=== PATIENT | female | born 1955 | race Hispanic/Latino ===

== ENCOUNTER 2018-03-02 17:49 | Emergency (ER) | payer MEDICARE ==
[~2018-03-02] VITALS: Ht 160 cm; Wt 52.2 kg
[~2018-03-02 17:49] MED LIST: AMLODIPINE PO; ASPIR 8181 MG PO; ATORVASTATIN CA40 MG PO; CLARITIN10 M2; COREG12.5 MG PO; FLONASE16 GM INH; FUROSEMIDE40 MG PO; GABAPENTIN100 MG PO; GLIPIZIDE5 MG PO; LISINOPRIL20 MG PO; METOPROLOL TART25 MG PO; NORVASC5 MG PO; PLAVIX75 MG PO; RESTORIL15 MG PO; SYNTHROID50 MCG PO; TESSALON PERLE100 MG PO; VITAMIN B-121000 MC2 IM; XANAX0.5 MG PO; ZOCOR40 MG PO
--- OUTSIDE RECORDS SUMMARY | 2018-03-02 17:56 | XMS REPORT | Clinical Summary ---
Author Author [facility] Organization [facility] Address Unknown Phone Unavailable Care Team Providers Care Transplant Rn Name Role Phone Ernst Sosa MD PCP Allergies Active Allergy Reactions Severity Noted Date Comments No Known Drug Allergies 04/12/2016 Current Medications Prescription Sig. Disp. Refills Start End Date Status Date glipiZIDE (GLUCOTROL) 5 Take 5 mg by mouth 2 Active MG tablet (two) times a day before meals. aspirin (ECOTRIN) 81 MG Take 81 mg by mouth Active enteric coated tablet daily. latanoprost (XALATAN) Administer 1 drop to both Active 0.005 % ophthalmic eyes nightly. solution levothyroxine (SYNTHROID, Take 50 mcg by mouth Active LEVOTHROID) 50 MCG tablet daily. carvedilol (COREG) 25 MG Take 25 mg by mouth 2 Active tablet (two) times a day with meals. atorvastatin (LIPITOR) 40 Take 40 mg by mouth Active MG tablet daily. amLODIPine (NORVASC) 10 Take 10 mg by mouth Active mg tablet daily. clopidogrel (PLAVIX) 75 Take 75 mg by mouth Active mg tablet daily. furosemide (LASIX) 80 mg Take 80 mg by mouth 2 Active tablet (two) times a day. furosemide (LASIX) 40 MG Take 80 mg by mouth 3 09/30/20 Discontin tablet (three) times a week. 17 ued 80mg orally twice daily on Friday, , and Friday losartan (COZAAR) 50 MG Take 50 mg by mouth 08/28/20 Discontin tablet daily. 17 ued amLODIPine (NORVASC) 5 MG Take 5 mg by mouth daily. 09/30/20 Discontin tablet 17 ued acetaminophen-codeine Take 1-2 tablets by mouth 40 tablet 0 08/28/20 09/07/20 (TYLENOL WITH CODEINE #3) every 4 (four) hours as 17 17 300-30 mg per tablet needed for moderate pain for up to 10 days. 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 coli bacteremia 07/14/2016 11/08/2017 CAD s/p CABG X 4 VD 04/15/2016 11/08/2017 Anemia, chronic renal failure 11/08/2017 ESRD (end stage renal disease) 2013 MWF 11/08/2017 Last Assessment & Plan: N. Dysfunctional R arm AVF. Patient with access needs. We gave the patient our kidney failure information sheet and discussed with them in general transplant vs. PD vs. hemodialysis. We discussed catheters vs. grafts vs. fistulas and used the informational posters to better explain the differences. We explained our general preference for fistulas because of decreased infections and increased longevity. We discussed operative complications including bleeding, thrombosis, failure of the access, swelling, steal syndrome, and need for additional procedures. Bedside duplex by me shows fistula is short, small distally, and stenotic in the middle. The lab duplex shows volume flow of 1 L/min. Plan to ligate and place a R upper arm graft. We discussed operative complications including bleeding, thrombosis, failure of the access, swelling, steal syndrome, and need for additional procedures. DM2 11/08/2017 GERD 11/08/2017 HLD 11/08/2017 HTN 11/08/2017 Hypothyroidism 11/08/2017 Encounters Date Type Specialty Care Team Description 01/12/2018 Emergency Emergency Medicine Jacky Grimes MD Acute left flank pain - (Primary Dx); 01/13/2018 Hematuria, unspecified type; ESRD (end stage renal disease) 11/07/2017 [facility] Cardiology Peter De La Cruz MD ESRD (end stage renal - Encounter disease) on dialysis 11/08/2017 11/07/2017 Office Visit Cardiovascular Deshaun Shine, Steal syndrome as [employer] complication of dialysis access, initial encounter (Primary Dx) 11/07/2017 Orders Only Cardiovascular Fátima Westfield, ESRD ( end stage renal [employer] disease) on dialysis (Primary Dx) 11/07/2017 Orders Only Cardiovascular Deshaun Shine, [employer] 11/07/2017 Orders Only Cardiovascular Cynthia Colon Swelling ( Primary Dx) 11/06/2017 Telephone Cardiovascular Cynthia Colon Steal syndrome as complication of dialysis access, initial encounter (Primary Dx) 10/14/2017 Office Visit Cardiovascular Deshaun Shine, ESRD ( end stage renal [employer] disease) 2013 MWF (Primary Dx) 09/30/2017 Office Visit Cardiovascular Deshaun Shine, ESRD ( end stage renal [employer] disease) on dialysis (Primary Dx) 09/24/2017 Documentation Transplant Carolyn Vasquez Dialysis liaison waitlist update 09/03/2017 Telephone Cardiovascular Cynthia Colon 08/28/2017 Hospital Ophthalmology Haven Ruiz MD ESRD (end stage renal Encounter disease) 08/28/2017 Anesthesia Ophthalmology Sandro Wang Event MD 08/28/2017 Procedure Pass Ophthalmology 08/28/2017 Surgery Ophthalmology Haven Ruiz MD Ligation of right arm AV Fistula and Insertion of right arm AV Graft - artegraft 08/19/2017 Office Visit Cardiovascular Haven Ruiz MD ESRD ( end stage renal disease) (Primary Dx) 05/04/2017 [facility] [place] Generalized abdominal pain (Primary Dx); Non-intractable vomiting with nausea, unspecified vomiting type; ESRD (end stage renal disease) after 03/01/2017 Family History Relation Name Status Comments Mother Social History Tobacco Use Types Packs/Day Years Used Date Former Smoker Cigarettes 0.5 8 Quit: 2010 Smokeless Tobacco: Never Used Alcohol Use Drinks/Week oz/Week Comments No Sex Assigned at Date Recorded Not on file Last Filed Vital Signs Vital Sign Reading Time Taken Blood Pressure 184/75 01/13/2018 12:21 AM LONG LINES OPERATOR Pulse 82 01/13/2018 12:21 AM LONG LINES OPERATOR Temperature 36.3 C (97.4 F) 01/12/2018 6:05 PM LONG LINES OPERATOR Respiratory Rate 14 01/13/2018 12:21 AM LONG LINES OPERATOR Oxygen Saturation 100% 01/13/2018 12:21 AM LONG LINES OPERATOR Inhaled Oxygen - - Concentration Weight 54.3 kg (119 lb 9.6 oz) 11/08/2017 4:43 AM LONG LINES OPERATOR Height 157.5 cm (5' 2") 11/07/2017 12:27 PM LONG LINES OPERATOR Body Mass Index 21.88 11/08/2017 4:43 AM LONG LINES OPERATOR Plan of Treatment Health Maintenance Due Date Last Done Comments COLONOSCOPY 2007 MAMMOGRAM 12/27/2016 12/27/2014 INFLUENZA VACCINE 07/01/2017 ZOSTER VACCINE 2017 PAP SMEAR 12/27/2017 12/27/2014 Implants Implanted Type Area Health Insurance Assessor Device Expiration Model / Identifier Date Serial / Lot Clip Ligtng Weck Hemoclip Plus W/ Medical Right: WECK CLOSURE 2021 [id number] / Tape Ti Sm - [id number] Clips for Arm, Upper SYSTEMS / Implanted: Qty: 2 on 08/28/2017 by Internal [id number] Haven Ruiz MD Use Clip Ligtng Weck Hemoclip Plus W/ Medical Right: TELEFLEX 04/17/2022 [id number] / Tape Ti Med - [id number] Clips for Arm, Upper MEDICAL / Implanted: Qty: 2 on 08/28/2017 by Internal [id number] Haven Ruiz MD Use Graft Vasclr Hmodial Bovine Crtd Vascular Right: ARTEGRAFT 2018 [id number] / Artery 45cm 7mm - [id number] Graft Arm, Upper / Implanted: 08/28/2017 (Quantity not [id number] on file) Procedures Procedure Name Priority Date/Time Associated Diagnosis Comments HEMODIALYSIS Routine 11/07/2017 8:39 PM LONG LINES OPERATOR AL REMOVAL TUNNELED CV Routine 10/15/2017 ESRD (end stage renal Results for this CATH W/O SUBQ PORT OR 10:04 AM LONG LINES OPERATOR disease) 2014 MWF procedure are in the PUMP results section. ANESTHESIA PERIPHERAL Routine 08/28/2017 BLOCK 12:57 PM CDT Procedure Note - Oc Mendez MD - 08/28/2017 12:46 PM CDT Peripheral Block Performed by: OC MENDEZ Authorized by: OC MENDEZ Patient Location: Pre-op Start Time: 08/28/2017 12:46 PM End Time: 08/28/2017 12:54 PM Staff: Anesthesio logist: OC MENDEZ Resident/C RNA: SANDRO WANG Preprocedu re: patient identified , IV checked, site and side verified, risks and benefits discussed, procedure verified, surgical consent complete, patient position confirmed, monitors and equipment checked, pre-op evaluation complete and site marked Time Out Performed: 08/28/2017 12:45 PM Peripheral Nerve Block: Patient Position: Sitting Prep: ChloraPrep and patient draped Monitoring : Blood pressure monitoring , continuous pulse oximetry and heart rate Block Type: Supraclavi cular Laterality : Right Injection Technique: Single injection Procedures : ultrasound guided and nerve stimulator Ultrasound documentat ion: Images saved on portable media, still images obtained and printed/pl aced in chart Local Infiltrati on (See MAR for details): Ropivacain e Loss of Twitch: 0.5 mA Needle: Needle Type: Pajunk Needle Gauge: 26 G Needle Length: 8 cm Assessment : Injection Assessment : Visualized needle/loc al anesthetic surroundin g nerve, intermitte nt aspiration during local anesthetic administra tion, visualized pertinent vascular structures and nerves, no symptoms of intraneura l/intraven ous injection and needle tip visualized at all times during injection of medication Paresthesi a Pain: None Heart Rate Change: No Slow Fractionat ed Injection: Yes Block outcome: No apparent complicati ons, patient comfortabl e and patient tolerated procedure well Ligation of right arm AV 08/28/2017 ESRD (end stage renal Fistula and Insertion of 10:15 AM CDT disease) right arm AV Graft - artegraft after 03/01/2017 Results * Urinalysis screen and microscopy, with reflex to culture (01/12/2018 10:36 PM) Component Value Ref Range Specimen site Clean catch Color, UA Red Appearance, UA Turbid Specific gravity, UA 1.018 1.001 - 1.035 pH, UA 5.0 5.0 - 8.5 Protein, UA 2+ (A) Negative Glucose, UA 3+ (A) Negative Ketones, UA Negative Negative Bilirubin, UA Negative Negative Blood, UA Large (A) Negative Nitrite, UA Negative Negative Urobilinogen, UA <2.0 <2.0 Leukocyte esterase, UA Negative Negative Epithelial cells, UA 1 /HPF WBC, UA 7 (H) 0 - 4 /HPF RBC, UA >180 (H) 0 - 2 /HPF Bacteria, UA Few None seen Yeast, UA None seen Yeast with pseudohyphae, None seen UA Specimen Performing Laboratory Urine [facility] DEPARTMENT OF PATHOLOGY AND [facility] MEDICINE [address] [place] [id number] * Gram stain (01/12/2018 10:34 PM) Component Value Ref Range Gram stain result No WBC's or organisms seen. Comment: Specimen Information Specimen Source: Urine Specimen Site: Clean catch Specimen Performing Laboratory Urine [facility] [place] [address] * Urine culture (01/12/2018 10:34 PM) Component Value Ref Range Urine culture isolate Mixed jeremías- more than 3 organisms isolated. Consider resubmitting specimen if clinically indicated. Comment: Specimen Information Specimen Source: Urine Specimen Site: Clean catch Specimen Performing Laboratory Urine [facility] [place] [address] * Estimated GFR (01/12/2018 9:32 PM) Only the most recent of 3 results within the time period is included. Component Value Ref Range GFR Non Af Amer 8 (A) mL/min/1.73 m2 GFR Af Amer 10 (A) mL/min/1.73 m2 Comment: Chronic kidney disease: <60 mL/min/1.73m2 Kidney failure: <15 mL/min/1.73m2 The estimated GFR is calculated from the IDMS-traceable Modification of Diet in Renal Disease Equation. The accuracy of the calculation is poor when the creatinine is normal. Calculated values >90 mL/min/1.73m2 are not reported. This equation has not been validated in children (<18 years), women, the elderly (>70 years), or ethnic groups other than Caucasians and Americans. Specimen Performing Laboratory Plasma specimen [facility] DEPARTMENT OF PATHOLOGY AND GENOMIC MEDICINE [address] [place] [address] * CBC with platelet and differential (01/12/2018 9:32 PM) Only the most recent of 3 results within the time period is included. Component Value Ref Range WBC 10.16 4.50 - 11.00 k/uL RBC 3.46 (L) 4.20 - 5.50 m/uL HGB 10.8 (L) 12.0 - 16.0 g/dL HCT 33.0 (L) 37.0 - 47.0 % MCV 95.4 82.0 - 100.0 fL MCH 31.2 27.0 - 34.0 pg MCHC 32.7 31.0 - 37.0 g/dL RDW - SD 51.8 37.0 - 55.0 fL MPV 11.6 8.8 - 13.2 fL Platelet count 176 150 - 400 k/uL Nucleated RBC 0.00 /100 WBC Neutrophils 57.0 39.0 - 69.0 % Lymphocytes 24.5 (L) 25.0 - 45.0 % Monocytes 6.1 0.0 - 10.0 % Eosinophils 10.8 (H) 0.0 - 5.0 % Basophils 0.9 0.0 - 1.0 % Immature granulocytes 0.7Comment: "Immature granulocytes" 0.0 - 1.0 % (promyelocytes, myelocytes, metamyelocytes) Specimen Performing Laboratory Blood [facility] DEPARTMENT OF PATHOLOGY AND [facility] [address] [place] [id number] * Lipase level (01/12/2018 9:32 PM) Component Value Ref Range Lipase 78 (H) 13 - 60 U/L Specimen Performing Laboratory Plasma specimen [facility] DEPARTMENT OF PATHOLOGY AND [address] [address] * Comprehensive metabolic panel (01/12/2018 9:32 PM) Component Value Ref Range Sodium 140 135 - 148 mEq/L Potassium 4.0 3.5 - 5.0 mEq/L Chloride 95 (L) 98 - 112 mEq/L CO2 28 24 - 31 mEq/L Anion gap 17 (H) 7 - 15 mEq/L Comment: Starting from March , anion gap calculation no longer incorporates potassium. Please note the change. BUN 34 (H) 8 - 23 mg/dL Creatinine 5.2 (H) 0.5 - 0.9 mg/dL Glucose 339 (H) 65 - 99 mg/dL Calcium 8.7 (L) 8.8 - 10.2 mg/dL Protein 8.2 6.3 - 8.3 g/dL Comment: 4.6-7.0 g/dL 1 week 4.4-7.6 g/dL 7 months-1year 5.1-7.3 g/dL 1-2 years 5.6-7.5 g/dL >3 years 6.0-8.0 g/dL 18-150 6.3-8.3 g/dL Albumin 3.7 3.5 - 5.0 g/dL A/G ratio 0.8 0.7 - 3.8 Alkaline phosphatase 272 (H) 35 - 104 U/L AST 23 10 - 35 U/L ALT 13 5 - 50 U/L Total bilirubin 0.3 0.0 - 1.2 mg/dL Specimen Performing Laboratory Plasma specimen [facility] DEPARTMENT OF PATHOLOGY AND GENOMIC MEDICINE [address] [place] [address] * CT Renal Stone Protocol (01/12/2018 8:51 PM) Specimen Performing [facility] [address] [place] [address] Narrative EXAMINATION:CT RENAL STONE PROTOCOL CLINICAL HISTORY:Flank Pain, L flank TECHNIQUE: Multiple axial images of the abdomen and pelvis were obtained without intravenous administration of iodinated contrast. Sagittal and coronal computerized reformatted images were also obtained. The lack of intravenous contrast reduces the sensitivity of detecting solid organ disease.. All CT images were acquired using low-dose technique with automated exposure control. COMPARISON: July 15, 2016 FINDINGS: Abdomen: 1.Mild left-sided hydronephrosis however without evidence for an obstructing ureteral stone. There are no stones identified within the bladder. The possibility of a distal ureteral stricture cannot be excluded. 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 The spleen, pancreas, and adrenal glands appear normal. 3.There is mild perinephric stranding involving the kidneys bilaterally which may relate to chronic medical renal disease. There is extensive scarring involving the right kidney. 4.Cholelithiasis without biliary obstruction. 5.Extensive atherosclerotic disease is seen involving the abdominal aorta. No retroperitoneal lymphadenopathy. Pelvis: 1.The appendix appears normal. 2.There are scattered diverticuli throughout the colon without acute inflammatory change. 3.A pelvic mass or fluid collection is not identified. The bladder is empty. 4.Right adnexal cyst measuring 3.2 x 2.7 cm. Relative to prior there has been no significant change IMPRESSION: 1.Diverticulosis. 2.Stable right adnexal cyst measuring 3.2 cm. 3.Left-sided hydronephrosis is new when compared to prior. While the findings may relate to a recently passed stone, follow-up is recommended to exclude the possibility of a ureteral stricture. 4.Cholelithiasis. [facility]-[id number] Procedure Note Interface, Radiology Results Incoming - 01/12/2018 9:02 PM LONG LINES OPERATOR EXAMINATION: CT RENAL STONE PROTOCOL CLINICAL HISTORY: Flank Pain, L flank TECHNIQUE: Multiple axial images of the abdomen and pelvis were obtained without intravenous administration of iodinated contrast. Sagittal and coronal computerized reformatted images were also obtained. The lack of intravenous contrast reduces the sensitivity of detecting solid organ disease.. All CT images were acquired using low-dose technique with automated exposure control. COMPARISON: July 15, 2016 FINDINGS: Abdomen: 1. Mild left-sided hydronephrosis however without evidence for an obstructing ureteral stone. There are no stones identified within the bladder. The possibility of a distal ureteral stricture cannot be excluded. 2. 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 The spleen, pancreas, and adrenal glands appear normal. 3. There is mild perinephric stranding involving the kidneys bilaterally which may relate to chronic medical renal disease. There is extensive scarring involving the right kidney. 4. Cholelithiasis without biliary obstruction. 5. Extensive atherosclerotic disease is seen involving the abdominal aorta. No retroperitoneal lymphadenopathy. Pelvis: 1. The appendix appears normal. 2. There are scattered diverticuli throughout the colon without acute inflammatory change. 3. A pelvic mass or fluid collection is not identified. The bladder is empty. 4. Right adnexal cyst measuring 3.2 x 2.7 cm. Relative to prior there has been no significant change IMPRESSION: 1. Diverticulosis. 2. Stable right adnexal cyst measuring 3.2 cm. 3. Left-sided hydronephrosis is new when compared to prior. While the findings may relate to a recently passed stone, follow-up is recommended to exclude the possibility of a ureteral stricture. 4. Cholelithiasis. [facility]-[id number] * POC glucose (11/08/2017 8:21 AM) Only the most recent of 3 results within the time period is included. Component Value Ref Range POC glucose 77 65 - 99 mg/dL Comment: [facility] Notified RN Meter ID: [id number] Patternmaker Helper: Pancho Corcoran Specimen Performing Laboratory [facility] DEPARTMENT OF PATHOLOGY AND GENOMIC MEDICINE [address] [place] [address] * Partial thromboplastin time, activated (11/08/2017 6:00 AM) Component Value Ref Range PTT SEE COMMENT 23.0 - 36.0 sec Comment: PTT therapeutic range for unfractionated heparin is 61.0-112.0 seconds which corresponds to Anti-Xa 0.3-0.7 U/ml. Footnote--------- Unable to perform testing, specimen is CLOTTED. Recollect requested for PT AND PTT (tests). MICKEY WAGNER (name/location) notified by A (tech ID) at [facility] (date/time). Credit issued. Corrected result; previously reported as 21.7 on 11/08/2017 at 08:06 by [facility] Specimen Performing Laboratory Blood [facility] DEPARTMENT OF PATHOLOGY AND [facility]ICINE [address] [place] [id number] * Prothrombin time with INR (11/08/2017 6:00 AM) Component Value Ref Range Prothrombin time SEE COMMENT 12.0 - 15.0 sec Comment: Footnote--------- PLEASE DISREGARD PREVIOUS RESULT. Unable to perform testing, specimen is CLOTTED. Recollect requested for PT AND PTT (tests). MICKEY WAGNER (name/location) notified by [facility] (tech ID) at 11/08/2017 08:09 (date/time). Credi t issued. Corrected result; previously reported as 14.1 on 11/08/2017 at 08:06 by [facility] INR SEE COMMENT Comment: The International Normalized Ratio (INR) is a therapeutic monitoring tool for patients who are stable on oral anticoagulant therapy. An INR of 2.0-3.0 is suggested for deep vein thrombosis/pulmonary embolism. Footnote--------- Corrected result; previously reported as 1.1 on 11/08/2017 at 08:06 by [facility] Specimen Performing Laboratory Blood [facility] DEPARTMENT OF PATHOLOGY AND GENOMIC MEDICINE [address] [place] [id number] * Magnesium level (11/08/2017 4:00 AM) Component Value Ref Range Magnesium 2.2 1.6 - 2.6 mg/dL Specimen Performing Laboratory Plasma specimen [facility] DEPARTMENT OF PATHOLOGY AND [facility] [address] [place] [id number] * Basic metabolic panel (11/08/2017 4:00 AM) Only the most recent of 2 results within the time period is included. Component Value Ref Range Sodium 140 135 - 148 mEq/L Potassium 4.5 3.5 - 5.0 mEq/L Chloride 95 (L) 98 - 112 mEq/L CO2 24 24 - 31 mEq/L Anion gap 21 (H) 7 - 15 mEq/L Comment: Starting from March , anion gap calculation no longer incorporates potassium. Please note the change. BUN 26 (H) 6 - 20 mg/dL Creatinine 4.5 (H) 0.5 - 0.9 mg/dL Glucose 85 65 - 99 mg/dL Calcium 8.4 8.3 - 10.2 mg/dL Specimen Performing Laboratory Plasma specimen [facility] DE[place]MENT [place] [address] * Hepatitis B surface antigen (11/08/2017 12:05 AM) Component Value Ref Range Hepatitis B surface Ag Non-reactive Non-reactive Specimen Performing Laboratory Blood [facility] DEPARTMENT OF PATHOLOGY AND [facility] [address] [place] [address] * ECG 12 lead (11/07/2017 8:52 PM) Only the most recent of 2 results within the time period is included. Component Value Ref Range Ventricular rate 74 Atrial rate 74 AL interval 168 QRSD interval 88 QT interval 448 QTC interval 497 P axis 1 65 QRS axis 1 51 T wave axis 47 EKG impression Normal sinus rhythm-Prolonged QT-Abnormal ECG-In automated comparison with ECG of 28-AUG-2017 10:10,-T wave inversion no longer evident in Inferior leads-Nonspecific T wave abnormality has replaced inverted T waves in Anterior leads- Specimen Performing Laboratory [facility] [address] [place] [address] * PV duplex hemodialysis avg avf access (11/07/2017 3:35 PM) Only the most recent of 2 results within the time period is included. [facility]imen [facility] [address] [place] [address] Narrative PERIPHERAL VASCULAR LABORATORY AV Graft - Fistula Report [address] [place] Pat.Name:ITALIA TAVARES Pat.ID:[id number] St.Date: 11/07/2017 Refer.MD:HAVEN RUIZ MD Exam Time: 1:54:00 PMStudy Type:AV Graft - Fistula DOBAge:1955,61YSex: FEMALE Sonogrphr: Zunilda Cunningham RVSPat. Stat.:Outpatient CPT - 4: 54723 Echo Event ID:[id number] Order ID:[id number] Reason for Study:Right ring finger discoloration for one day prior to and during dialysis. Patient denies hand and digit pain at the moment. Patient was seen at an outside hospital, right TDC was placed. ESRD Procedures:08/28/2017 Right brachiobasilic AVF ligation. Right brachial artery to brachial vein AV Graft placment. 08/2015 Right brachiobasilic AVF creation. Race:C SUMMARY: DUPLEX SCAN OBSERVATIONS: Right:The brachial artery to brachial vein upper arm AVG is well visualized.Disturbed colorflow and Doppler signals are noted in the feeding brachial artery, through the graft and into the draining vein. Increased colorflow disturbance is noted in the AVG anastomosis. The right central veins appear patent. VOLUME FLOW: Right brachial artery 1150 ml/min Technically difficult exam due to patient pain level. Patient seen in clinic by Deshaun PHYSICIAN INTERPRETATION 1.Volume flow, right brachial artery is 1150ml/min 2.<50% juxta-anastomotic stenosis of the right arterial anastomosis (ratio 2.01). 3.<50% juxta-anastomotic stenosis of the right venous anastomosis (ratio 0.61). 4. The right central veins appear patent. 5.See same day upper extremity venous duplex. MEASUREMENTS: GRAFT Right Brachial A Mid Brachial Artery to Brachial Vein:Graft Brachial A [id number] cm/s Right AVG Arterial Anast. Brachial Artery to Brachial Vein:Graft AVG AAnast PSV 659 cm/s Right AVG Arterial Side Brachial Artery to Brachial Vein:Graft AVG ASide [id number] cm/s Right AVG Arterial Side 1 Brachial Artery to Brachial Vein:Graft AVG ASide 1 PSV 224 cm/s Right AVG Arterial Side 2 Brachial Artery to Brachial Vein:Graft AVG ASide 2 PSV 194 cm/s Right AVG Mid Brachial Artery to Brachial Vein:Graft AVG Mid [id number] cm/s Right AVG Vein Side Brachial Artery to Brachial Vein:Graft AVG Vn Side PSV 193 cm/s Right AVG Vein Side 1 Brachial Artery to Brachial Vein:Graft AVG Vn Side 1 P 206 cm/s Right AVG Vein Anastomosis Brachial Artery to Brachial Vein:Graft AVG Vn Anast PS 130 cm/s Right Brachial V Prx Brachial Artery to Brachial Vein:Graft Brachial V [id number] cm/s Right Axillary V Mid Brachial Artery to Brachial Vein:Graft Axillary V Mid 64 cm/s Right Subclavian V Mid Brachial Artery to Brachial Vein:Graft Subclavian V Mi76 cm/s Right Subclavian V Central Brachial Artery to Brachial Vein:Graft Subclavian V Ce58 cm/s Signed 11/10/2017 08:57 AM Abida Desouza MD, RPVI Procedure Note Interface, Radiology Results In - 11/10/2017 8:58 AM [facility] PERIPHERAL VASCULAR LABORATORY AV Graft - Fistula Report [address] [place] [address] Pat.Name: ITALIA TAVARES Pat.ID: [id number] .Date: 11/07/2017 Refer.MD: HAVEN RUIZ MD Exam Time: 1:54:00 PM Study Type:AV Graft - Fistula Age: 1 1955,61Y Sex: FEMALE Sonogrphr: BILL Briceno Pat. Stat.:Outpatient CPT - 4: 29563 Echo Event ID:[id number] Order ID: [id number] Reason for Study:Right ring finger discoloration for one day prior to and during dialysis. Patient denies hand and digit pain at the moment. Patient was seen at an outside hospital, right TDC was placed. ESRD Procedures:08/28/2017 Right brachiobasilic AVF ligation. Right brachial artery to brachial vein AV Graft placment. 08/2015 Right brachiobasilic AVF creation. Race: C SUMMARY: DUPLEX SCAN OBSERVATIONS: Right: The brachial artery to brachial vein upper arm AVG is well visualized. Disturbed colorflow and Doppler signals are noted in the feeding brachial artery, through the graft and into the draining vein. Increased colorflow disturbance is noted in the AVG anastomosis. The right central veins appear patent. VOLUME FLOW: Right brachial artery 1150 ml/min Technically difficult exam due to patient pain level. Patient seen in clinic by Deshaun PHYSICIAN INTERPRETATION 1. Volume flow, right brachial artery is 1150ml/min 2. <50% juxta-anastomotic stenosis of the right arterial anastomosis (ratio 2.01). 3. <50% juxta-anastomotic stenosis of the right venous anastomosis (ratio 0.61). 4. The right central veins appear patent. 5. See same day upper extremity venous duplex. MEASUREMENTS: GRAFT Right Brachial A Mid Brachial Artery to Brachial Vein:Graft Brachial A Mid 327 cm/s Right AVG Arterial Anast. Brachial Artery to Brachial Vein:Graft AVG AAnast PSV 659 cm/s Right AVG Arterial Side Brachial Artery to Brachial Vein:Graft AVG ASide PSV 369 cm/s Right AVG Arterial Side 1 Brachial Artery to Brachial Vein:Graft AVG ASide 1 PSV 224 cm/s Right AVG Arterial Side 2 Brachial Artery to Brachial Vein:Graft AVG ASide 2 PSV 194 cm/s Right AVG Mid Brachial Artery to Brachial Vein:Graft AVG Mid PSV 268 cm/s Right AVG Vein Side Brachial Artery to Brachial Vein:Graft AVG Vn Side PSV 193 cm/s Right AVG Vein Side 1 Brachial Artery to Brachial Vein:Graft AVG Vn Side 1 P 206 cm/s Right AVG Vein Anastomosis Brachial Artery to Brachial Vein:Graft AVG Vn Anast PS 130 cm/s Right Brachial V Prx Brachial Artery to Brachial Vein:Graft Brachial V Prx 212 cm/s Right Axillary V Mid Brachial Artery to Brachial Vein:Graft Axillary V Mid 64 cm/s Right Subclavian V Mid Brachial Artery to Brachial Vein:Graft Subclavian V Mi 76 cm/s Right Subclavian V Central Brachial Artery to Brachial Vein:Graft Subclavian V Ce 58 cm/s Signed 11/10/2017 08:57 AM Abida Desouza MD, RPVI * PV duplex venous upper extremity (11/07/2017 3:15 PM) Specimen Performing Laboratory [facility] [address] [place] [address] [facility] PERIPHERAL VASCULAR LABORATORY Upper Extremity Venous Duplex Report [address] [place] Pat.Name:ITALIA TAVARES Pat.ID:[id number] St.Date: 11/07/2017 Refer.MD:HAVEN RUIZ MD Exam Time: 1:19:00 PMStudy Type:UE Venous DOBAge:1955,61YSex: FEMALE Sonogrphr: Gerard Briceno. Stat.:Outpatient CPT - 4: 84037 Echo Event ID:[id number] Order ID:[id number] Reason for Study:Right upper extremity edema s/p TDC placement. Procedures:08/28/2017 Right brachiobasilic AVF ligation. Right brachial artery to brachial vein AV Graft placment. Race:C SUMMARY: DUPLEX SCAN OBSERVATIONS Right Left IJContinuous SubclavianPatent Patent AxillaryPatent BrachialPatent BasilicNot Visualized CephalicPatent Cephalic forearm Partial RIGHT: The forearm cephalic vein is partially compressible with echogenic material within the venous lumen. Reduced colorflow and Doppler signals.There is normal compressibility and no evidence of echogenic material noted within the lumen of the remaining visualized veins. Colorflow and Doppler signals demonstrate patency. Reduced phasicity Doppler signals noted in the internal jugular vein. Multiple venous varicosities are noted near the internal jugular vein. Limited visualization of the subclavian vein due to the tunneled dialysis catheter. The basilic vein is not visualized. Technically difficult exam due to patient pain level. Patient seen in clinic by Deshaun PHYSICIAN INTERPRETATION 1.Chronic venous thrombosis of the right forearm cephalic vein. 2.The right central veins appear patent. 3.Right tunneled dialysis catheter. Signed 11/10/2017 08:57 AM Abida Desouza MD, RPVI Procedure Note Interface, Radiology Results In - 11/10/2017 8:57 AM [facility] PERIPHERAL VASCULAR LABORATORY Upper Extremity Venous Duplex Report [address] [place] [address] Pat.Name: ITALIA TAVARES Pat.ID: [id number] St.Date: 11/07/2017 Refer.MD: HAVEN URIZ MD Exam Time: 1:19:00 PM Study Type:UE Venous Age: 1 1955,61Y Sex: FEMALE Sonogrphr: BILL Briceno Pat. Stat.:Outpatient CPT - 4: 95468 Echo Event ID:[id number] Order ID: [id number] Reason for Study:Right upper extremity edema s/p TDC placement. Procedures:08/28/2017 Right brachiobasilic AVF ligation. Right brachial artery to brachial vein AV Graft placment. Race: C SUMMARY: DUPLEX SCAN OBSERVATIONS Right Left IJ Continuous Subclavian Patent Patent Axillary Patent Brachial Patent Basilic Not Visualized Cephalic Patent Cephalic forearm Partial RIGHT: The forearm cephalic vein is partially compressible with echogenic material within the venous lumen. Reduced colorflow and Doppler signals. There is normal compressibility and no evidence of echogenic material noted within the lumen of the remaining visualized veins. Colorflow and Doppler signals demonstrate patency. Reduced phasicity Doppler signals noted in the internal jugular vein. Multiple venous varicosities are noted near the internal jugular vein. Limited visualization of the subclavian vein due to the tunneled dialysis catheter. The basilic vein is not visualized. Technically difficult exam due to patient pain level. Patient seen in clinic by Deshaun PHYSICIAN INTERPRETATION 1. Chronic venous thrombosis of the right forearm cephalic vein. 2. The right central veins appear patent. 3. Right tunneled dialysis catheter. Signed 11/10/2017 08:57 AM Abida Desouza MD, RPVI * TDC Removal (10/15/2017 10:04 AM) Narrative Deshaun Shine NP 10/15/2017 10:04 AM TDC Removal Date/Time: 10/15/2017 10:02 AM Performed by: DESHAUN SHINE Authorized by: DESHAUN SHINE TDC site anesthetized with local anesthetic. The cuff was dissected free and the catheter removed in its entirety. Pressure was held at the site to ensure hemostasis. Pressure dressing applied. Verbal and written instructions and ER warnings given. Procedure Comments: With the patient in supine position, the (left) side of the neck and the existing catheter were prepped and draped in a sterile fashion. 1% Lidocaine with Epiwas injected subcutaneously around the catheter tract. Blunt dissection of the tract was performed and the catheter was removed without complications. With the patient now sitting upright, pressure was held over the entry site in the (left) internal jugular vein and hemostasis was achieved. Dressings were placed over the skin wound on the subclavicular region. The patient tolerated the procedure well. Impression: Successful removal of (left) internal jugular vein tunneled catheter. Consent: Consent obtained:Verbal Consent given by:Patient and healthcare agent Risks discussed:Bleeding, infection, pain and poor cosmetic result Alternatives discussed:Observation, referral, no treatment and delayed treatment Post-procedure details: Patient tolerance of procedure:Tolerated well, no immediate complications * POC panel 4 (08/28/2017 11:30 AM) Component Value Ref Range POC sodium 146Comment: Testing performed on the ISTAT 135 - 148 mEq/L instrument by DAXA Iyer [id number] POC potassium 4.2 3.5 - 5.0 mEq/L POC hematocrit 32 (L) 37 - 47 % POC glucose 130 (H) 65 - 99 mg/dL Specimen Performing Laboratory [facility] DEPARTMENT OF PATHOLOGY AND GENOMIC MEDICINE [address] [place] [address] * XR Chest 1 Vw Portable (08/28/2017 11:05 AM) Specimen Performing Laboratory [facility] [address] [place] [address] Narrative EXAMINATION:XR CHEST 1 VW PORTABLE CLINICAL HISTORY:PRE-OP COMPARISON:July 14, 2016 IMPRESSION: 1.Prior sternotomy. Left-sided catheter extends into the right atrium. 2.There is no pneumothorax. 3.There has been resolution of volume loss and fluid on the left side since the prior study. [id number] Procedure Note Hm Interface, Radiology Results Incoming - 08/28/2017 11:19 AM CDT EXAMINATION: XR CHEST 1 VW PORTABLE CLINICAL HISTORY: PRE-OP COMPARISON: July 14, 2016 IMPRESSION: 1. Prior sternotomy. Left-sided catheter extends into the right atrium. 2. There is no pneumothorax. 3. There has been resolution of volume loss and fluid on the left side since the prior study. [id number] after 03/01/2017 Insurance Payer Benefit Subscriber ID Type Phone Address Plan / Group MEDICARE MEDICARE xxxxxxxxxx [place] PART A [place] B AARP AARP xxxxxxxxx-xx Commercial SUPPLEMENT
--- OUTSIDE RECORDS SUMMARY | 2018-03-02 17:56 | XMS REPORT ---
Author Author [facility] Address Unknown Phone Unavailable Care Team Providers Care Clinical Ob Name Role Phone INNA MEYERS Unavailable Unavailable JANETTE CHRISTINE Unavailable Unavailable Problems This patient has no known problems. Allergies, Adverse Reactions, Alerts This patient has no known allergies or adverse reactions. Medications This patient has no known medications. Results Test Description Test Time Test Comments Text Results Atomic Results Result Comments HEPTOBILIARY W PHARM [place] [address] Patient Name: YESIKA TAVARES MR #: [id number] : 1955 Age/Sex: 61/F Req #: [id number] Adm Physician: INNA MEYERS MD Ordered by: LILI CROOKS MD Report #: [id number] Location: MED/SURG2 Room/Bed: [facility] _ Procedure: [id number] NM/HEPTOBILIARY W PHARM Exam Date: 09/07/17 Exam Time: 1055 REPORT STATUS: Signed Hepatobiliary Scan with Gallbladder Ejection Fraction Clinical information: 61 F with chronic abdominal pain x2 days Technique: Following intravenous administration of 6 millicuries of Tc-99m mebrofenin, dynamic images of the abdomen in the anterior projection were obtained through 50 minutes. Sincalide (CCK analog) 1.1 micrograms was administered intravenously over 30 minutes with additional imaging for determination of gallbladder ejection fraction. Discussion: Perfusion of the liver is normal. Extraction of tracer by the liver parenchyma is normal. Tracer appears promptly within the biliary tract. The gallbladder begins to fill by 12 minutes post injection of tracer and fills adequately. Tracer is seen in the small bowel during the sincalide infusion. The gallbladder ejection fraction with sincalide is 36% ( normal greater than 40%). Impression: 1. Filling of the gallbladder excludes acute cystic duct obstruction/acute cholecystitis. 2. The decreased gallbladder ejection fraction of 36% supports the clinical diagnosis of chronic cholecystitis/gallbladder dyskinesia. Signed by: Dr. Nadine Plummer M.D. on 09/07/2017 12:41 PM Dictated By: NADINE PLUMMER MD 1241 Transcribed By: ALDA on 09/07/17 1241 COPY TO: LILI CROOKS MD MRI MRCP WO [place] [address] Patient Name: YESIKA TAVARES MR # : [id number] : 1955 Age/Sex: 61/F Req #: [id number] Adm Physician: INNA MEYERS MD Ordered by: INNA MEYERS MD Report #: [id number] Location: MED/SURG2 Room/Bed: [facility] _ Procedure: [id number] MRI/MRI MRCP WO Exam Date: 09/06/17 Exam Time: 1310 REPORT STATUS: Signed EXAM: MR Abdomen WITHOUT and WITH Contrast Magnetic Resonance Cholangiopancreatography ( M.R.C.P.) INDICATION: Choledocholithiasis. COMPARISON: None. TECHNIQUE: Multiplanar and multisequence imaging was performed of the abdomen without and with contrast. T1-weighted, T2-weighted images, T1-weighted in and [id number], and Diffusion weighted images. Dynamic, post gadolinium T1- weighted spoiled gradient echo scans. M.R.C.P. Technique: Multiplanar, multisequence MRCP was performed, with sequences including coronal turbo spin- echo T1-weighted scans, [facility] MRCP scans, coronal spin, coronal MPR 2, SMRCP 3D HR, [facility] MRCP ROLLE. IV Contrast: Gadavist gadolinium Oral Contrast: None Medications: None COMPLICATIONS: None FINDINGS: LOWER THORAX: Unremarkable. HEPATOBILIARY: No focal hepatic lesions. No biliary ductal dilation. GALLBLADDER: Cholelithiasis. No wall thickening. SPLEEN: No splenomegaly. PANCREAS: No focal masses or ductal dilatation. ADRENALS: No adrenal nodules KIDNEYS/URETERS: Kidneys enhance symmetrically. No hydronephrosis. No cystic or solid mass lesions. No stones. GI TRACT: No abnormal distention, wall thickening, or evidence of bowel obstruction. Appendix is normal. LYMPH NODES: No lymphadenopathy. VESSELS: Unremarkable. PERITONEUM / RETROPERITONEUM: No free air or fluid. BONES: Unremarkable. SOFT TISSUES: Unremarkable. IMPRESSION : 1. Cholelithiasis. 2. No evidence of choledocholithiasis. Signed by : Dr. Esha Duke M.D. on 09/06/2017 1:55 PM Dictated By: ESHA DUKE MD 135 Transcribed By: ALDA on 09/06/17 135 COPY TO: INNA MEYERS MD CT ABDOMEN/PELVIS [place] [address] Patient Name: YESIKA TAVARES MR #: [id number] : 1955 Age/Sex: 61/F Req #: [id number] Adm Physician: Ordered by: TATIANA PRINGLE MD Report #: [id number] Location: ER Room/Bed: Procedure: [id number] CT/CT ABDOMEN/PELVIS WO Exam Date: 09/05/17 Exam Time: 2314 REPORT STATUS: Signed EXAM: CT ABDOMEN AND PELVIS without IV CONTRAST DATE: 09/05/2017 9:56 PM Time stamp on Exam: 2315 hours INDICATION: Abdominal pain, back pain COMPARISON: None TECHNIQUE: The abdomen and pelvis were scanned using a multidetector helical scanner. Coronal and sagittal reformations were obtained. Routine protocol performed. IV Contrast: None Oral Contrast: Gastrografin CTDIvol has been reviewed. It is below the limits set by the Radiation Protocol Committee (RPC). FINDINGS: LOWER THORAX: Trace left pleural effusion. LIVER: No masses. BILIARY: Cholelithiasis without CT evidence of cholecystitis. No ductal dilation. SPLEEN: No masses PANCREAS: No masses ADRENALS: No nodules KIDNEYS: Cortical scarring inferior lateral aspect of the right kidney. No hydronephrosis. Perinephric fat stranding on the left. No nephroureterolithiasis. No hydronephrosis. GI TRACT: No distention, wall thickening or evidence of obstruction. Colonic diverticulosis. Normal appendix. VESSELS: Saphenous chronic changes without aneurysm. PERITONEUM /RETROPERITONEUM: No free air or fluid LYMPH NODES: No lymphadenopathy REPRODUCTIVE ORGANS: Previously described 3.6 cm right adnexal cyst. Calcified uterine vessels. No left adnexal masses. BLADDER: Unremarkable SOFT TISSUES: Small fat-containing umbilical hernia. Partially visualized median sternotomy wires. BONES: No suspicious bone lesions. IMPRESSION: Asymmetric left perirenal fat stranding. Consider pyelonephritis in the appropriate clinical setting. Otherwise, no acute findings. Signed by : Dr. Crystal Cuellar M.D. on 09/05/2017 11:47 PM Dictated By: CRYSTAL CUELLAR MD 46 Transcribed By: ALDA on 09/05/172346 COPY TO: TATIANA PRINGLE MD CHEST SINGLE (PORTABLE) [place] [address] Patient Name: YESIKA TAVARES MR #: [id number] : 1955 Age/Sex: 61/F Req #: [id number] Adm Physician: Ordered by: TATIANA PRINGLE MD Report #: [id number] Location: ER Room/Bed: Procedure: [id number] DX/CHEST SINGLE (PORTABLE) Exam Date: Exam Time: REPORT STATUS: Signed EXAM: CHEST SINGLE (PORTABLE ), AP 1 view DATE: 09/05/2017 9:52 PM Time stamp on exam: 2205 hours INDICATION: Fever COMPARISON: AP view of the chest October 13, 2017 FINDINGS: LINES/TUBES: Stable position of left internal jugular vein tunneled hemodialysis catheter. LUNGS: No consolidations or edema. PLEURA: No effusions or pneumothorax. HEART AND MEDIASTINUM: Normal size and contour. Median sternotomy wires and mediastinal clips. BONES AND SOFT TISSUES: No acute findings. IMPRESSION: No evidence of pneumonia. Signed by: Dr. Crystal Cuellar M.D. on 09/05/2017 10:47 PM Dictated By: CRYSTAL CUELLAR MD 46 COPY TO: TATIANA PRINGLE MD CHEST SINGLE (PORTABLE) [place] [address] Patient Name: YESIKA TAVARES MR #: [id number] : 1955 Age/Sex: 61/F Req #: [id number] Adm Physician: Ordered by: JANETTE CHRISTINE MD Report # : [id number] Location: ER Room/Bed: Procedure: [id number] DX/CHEST SINGLE (PORTABLE) Exam Date: 08/13/17 Exam Time: 1630 REPORT STATUS: Signed PROCEDURE: A single AP view of the chest. COMPARISON: Patients [facility], DX, CHEST SINGLE ( PORTABLE), 07/28/2017, 10:35. [facility], DX, CHEST SINGLE ( PORTABLE), 08/03/2017, 11:09. INDICATIONS: WEAKNESS FINDINGS: Lines/tubes: Stable left-sided tunneled dialysis catheter. Lungs: The lungs are well inflated. Stable 7 mm calcified granuloma in the right midlung.. There is no evidence of pneumonia or pulmonary edema. Pleura : There is no pleural effusion or pneumothorax. Heart and mediastinum: The heart and the mediastinum are unremarkable. Bones: No acute bony abnormality. IMPRESSION: 1. No acute cardiopulmonary disease. Mickey Benites M.D. Dictated by: Mickey Benites M.D. on 08/13 at 16:57 Electronically approved by: Mickey Benites M.D. on at 16:57 Dictated By: MICKEY BENITES MD 56 Transcribed By: SOSA on 08/13/171656 COPY TO: JANETTE CHRISTINE MD CHEST SINGLE (PORTABLE) [place] [address] Patient Name: YESIKA TAVARES MR #: [id number] : 1955 Age/Sex: 61/F Req #: [id number] Adm Physician: Ordered by: JANETTE CHRISTINE MD Report # : [id number] Location: ER Room/Bed: Procedure: [id number] DX/CHEST SINGLE (PORTABLE) Exam Date: 08/03/17 Exam Time: 1100 REPORT STATUS: Signed EXAMINATION: CHEST SINGLE ( PORTABLE) INDICATION: COMPARISON: Chest radiograph from 08/17/2016 FINDINGS: AP view TUBES and LINES: Left hemodialysis catheter with tip overlying the superior right atrium, unchanged. LUNGS: Lungs are well inflated. Lungs are clear. Mild central pulmonary vascular congestion. PLEURA: No pleural effusion or pneumothorax. HEART AND MEDIASTINUM: Stable mild cardiomegaly. Mild atherosclerotic calcifications of the aortic arch. BONES AND SOFT TISSUES: Intact median sternotomy wires. Soft tissues are unremarkable. UPPER ABDOMEN: No free air under the diaphragm. IMPRESSION: Mild bilateral central pulmonary vascular congestion. Signed by: Dr. Camron Jessica M.D. on 08/03/2017 11:31 AM Dictated By: CAMRON JESSICA MD 1131 Transcribed By: ALDA on 08/03/17 1131 COPY TO: JANETTE CHRISTINE MD CHEST SINGLE (PORTABLE) [place] [address] Patient Name: YESIKA TAVARES MR #: [id number] : 1955 Age/Sex: 61/F Req #: [id number] Adm Physician: Ordered by: JANETTE CHRISTINE MD Report # : [id number] Location: ER Room/Bed: Procedure: [id number] DX/CHEST SINGLE (PORTABLE) Exam Date: 07/28/17 Exam Time: 1030 REPORT STATUS: Signed PROCEDURE: A single AP view of the chest. COMPARISON: Patients [facility], DX, CHEST 2 VIEWS, 05/06, 14:20. Patients [facility], DX, ABDOMEN ACUTE SERIES W/PA CXR, 05/06/2017, 14:25. INDICATIONS: DIALYSIS PATIENT FINDINGS: See impression. IMPRESSION: 1. stable left-sided dialysis catheter with distal tip projecting in the proximal right atrium. 2. Stable 7 mm calcified granuloma in the right midlung. No other focal lesions. The lungs are otherwise clear. No consolidation or effusion. 3. Cardiac silhouette and pulmonary vasculature are normal. 4. Preliminary report provided by Dr. Benites 07/28/2017 at 1110 hrs. Mickey Benites M.D. Dictated by: Mickey Benites M.D. on 07/30/2017 at 13:45 Electronically approved by: Mickey Benites M.D. on 07/30/2017 at 13:45 Dictated By: MICKEY BENITES MD 1345 Transcribed By: SOSA on 07/30/17 1345 COPY TO: JANETTE CHRISTINE MD
--- OUTSIDE RECORDS SUMMARY | 2018-03-02 17:57 | XMS REPORT | Clinical Summary ---
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 complication of dialysis access, initial encounter (Primary Dx) 11/07/2017 Orders Only Cardiovascular Fátima Dana, ESRD ( end stage renal DRYING TUNNEL OPERATOR disease) on dialysis (Primary Dx) 11/07/2017 Orders Only Cardiovascular Deshaun Shine, DRYING TUNNEL OPERATOR 11/07/2017 Orders Only Cardiovascular Cynthia Colon Swelling ( Primary Dx) 11/06/2017 Telephone Cardiovascular Cynthia Colon Steal syndrome as complication of dialysis access, initial encounter (Primary Dx) 10/14/2017 Office Visit Cardiovascular Deshaun Shine, ESRD ( end stage renal DRYING TUNNEL OPERATOR disease) 2013 MWF (Primary Dx) 09/30/2017 Office Visit Cardiovascular Deshaun Shine, ESRD ( end stage renal DRYING TUNNEL OPERATOR disease) on dialysis (Primary Dx) 09/24/2017 Documentation [...] disease) (Primary Dx) 05/04/2017 [facility] Generalized abdominal pain (Primary Dx); [...] Taken Blood Pressure 184/75 01/13/2018 12:21 AM OIL BAY TECHNICIAN Pulse 82 01/13/2018 12:21 AM OIL BAY TECHNICIAN Temperature 36.3 C (97.4 F) 01/12/2018 6:05 PM OIL BAY TECHNICIAN Respiratory Rate 14 01/13/2018 12:21 AM OIL BAY TECHNICIAN Oxygen Saturation 100% 01/13/2018 12:21 AM OIL BAY TECHNICIAN Inhaled Oxygen - - Concentration Weight 54.3 kg (119 lb 9.6 oz) 11/08/2017 4:43 AM OIL BAY TECHNICIAN Height 157.5 cm (5' 2") 11/07/2017 12:27 PM OIL BAY TECHNICIAN Body Mass Index 21.88 11/08/2017 4:43 AM OIL BAY TECHNICIAN Plan of Treatment Health Maintenance Due Date Last Done Comments COLONOSCOPY 2007 MAMMOGRAM 12/27/2016 12/27/2014 INFLUENZA VACCINE 07/01/2017 ZOSTER VACCINE 2017 PAP SMEAR 12/27/2017 12/27/2014 Implants Implanted Type Area Country Printer Device Expiration Model / Identifier Date Serial / Lot Clip Ligtng Weck Hemoclip Plus W/ Medical Right: WECK CLOSURE 2021 [id number] / Tape Ti Sm - [id number] Clips for Arm, Upper SYSTEMS / Implanted: Qty: 2 on 08/28/2017 by Internal [id number] Haven Ruiz MD Use Clip Ligtng Weck Hemoclip Plus W/ Medical Right: TELEFLEX 04/17/2022 [id number] / Tape Ti Med - [id number] Clips for Arm, Upper MEDICAL / Implanted: Qty: 2 on 08/28/2017 by Internal [id number] Haven Ruiz MD Use Graft Vasclr Hmodial Bovine Crtd Vascular Right: ARTEGRAFT 2018 [id number] / Artery 45cm 7mm - [id number] Graft Arm, Upper / Implanted: 08/28/2017 (Quantity not [id number] on file) Procedures Procedure Name Priority Date/Time Associated Diagnosis Comments HEMODIALYSIS Routine 11/07/2017 8:39 PM OIL BAY TECHNICIAN [place] REMOVAL TUNNELED CV Routine 10/15/2017 ESRD (end stage renal Results for this CATH W/O SUBQ PORT OR 10:04 AM OIL BAY TECHNICIAN disease) 2014 MWF procedure are in the [...] None seen UA Specimen Performing Laboratory Urine [facility] DEPARTMENT OF PATHOLOGY AND [facility] MEDICINE [address] [place] [address] * Gram stain (01/12/2018 10:34 PM) Component Value Ref Range Gram stain result No WBC's or organisms seen. Comment: Specimen Information Specimen Source: Urine Specimen Site: Clean catch Specimen Performing Laboratory Urine [facility] DEPARTMENT [place] [address] * Urine culture (01/12/2018 10:34 PM) Component Value Ref Range Urine culture isolate Mixed jeremías- more than 3 organisms isolated. Consider resubmitting specimen if clinically indicated. Comment: Specimen Information Specimen Source: Urine Specimen Site: Clean catch Specimen Performing Laboratory Urine [facility] DEPARTMENT [place] [address] * Estimated GFR (01/12/2018 9:32 PM) Only [...] and Americans. Specimen Performing Laboratory Plasma specimen [facility] DEPARTMENT OF PATHOLOGY AND GENOMIC MEDICINE [address] [place] [address] * CBC with platelet and differential (01/12/2018 [...] (promyelocytes, myelocytes, metamyelocytes) Specimen Performing Laboratory Blood [facility] DEPARTMENT OF PATHOLOGY AND [facility] MEDICINE [address] [place] [address] * Lipase level (01/12/2018 9:32 PM) Component Value Ref Range Lipase 78 (H) 13 - 60 U/L Specimen Performing Laboratory Plasma specimen [facility] DEPARTMENT OF PATHOLOGY AND [address] [address] * Comprehensive metabolic panel (01/12/2018 9:32 PM) [...] 1.2 mg/dL Specimen Performing Laboratory Plasma specimen [facility] DEPARTMENT OF PATHOLOGY AND GENOMIC MEDICINE [address] [place] [address] * CT Renal Stone Protocol (01/12/2018 8:51 PM) Specimen Performing Laboratory [facility] [address] [place] [address] Narrative EXAMINATION:CT RENAL STONE PROTOCOL CLINICAL HISTORY:Flank [...] the possibility of a ureteral stricture. 4.Cholelithiasis. [facility]-[id number] Procedure Note Interface, Radiology Results Incoming - 01/12/2018 9:02 PM OIL BAY TECHNICIAN EXAMINATION: CT RENAL STONE PROTOCOL CLINICAL HISTORY: [...] possibility of a ureteral stricture. 4. Cholelithiasis. [facility]-[id number] * POC glucose (11/08/2017 8:21 AM) Only the most recent of 3 results within the time period is included. Component Value Ref Range POC glucose 77 65 - 99 mg/dL Comment: [facility] Notified RN Meter ID: [id number] Ward Maid: Pancho Corcoran Specimen Performing Laboratory [facility] DEPARTMENT OF PATHOLOGY AND GENOMIC MEDICINE [address] [place] [address] * Partial thromboplastin time, activated (11/08/2017 6:00 AM) Component Value Ref Range PTT SEE COMMENT 23.0 - 36.0 sec Comment: PTT therapeutic range for unfractionated heparin is 61.0-112.0 seconds which corresponds to Anti-Xa 0.3-0.7 U/ml. Footnote--------- Unable to perform testing, specimen is CLOTTED. Recollect requested for PT AND PTT (tests). MICKEY WAGNER (name/location) notified by A (tech ID) at [facility] (date/time). Credit issued. Corrected result; previously reported as 21.7 on 11/08/2017 at 08:06 by [facility] Specimen Performing Laboratory Blood [facility] DEPARTMENT OF PATHOLOGY AND [facility] MEDICINE [address] [place] [address] * Prothrombin time with INR (11/08/2017 6:00 AM) Component Value Ref Range Prothrombin time SEE COMMENT 12.0 - 15.0 sec Comment: Footnote--------- PLEASE DISREGARD PREVIOUS RESULT. Unable to perform testing, specimen is CLOTTED. Recollect requested for PT AND PTT (tests). MICKEY WAGNER (name/location) notified by [facility] (tech ID) at 11/08/2017 08:09 (date/time). Credi t issued. Corrected result; previously reported as 14.1 on 11/08/2017 at 08:06 by [facility] INR SEE COMMENT Comment: The International Normalized Ratio (INR) is a therapeutic monitoring tool for patients who are stable on oral anticoagulant therapy. An INR of 2.0-3.0 is suggested for deep vein thrombosis/pulmonary embolism. Footnote--------- Corrected result; previously reported as 1.1 on 11/08/2017 at 08:06 by [facility] Specimen Performing Laboratory Blood [facility] DEPARTMENT OF PATHOLOGY AND GENOMIC MEDICINE [address] [place] [address] * Magnesium level (11/08/2017 4:00 AM) Component Value Ref Range Magnesium 2.2 1.6 - 2.6 mg/dL Specimen Performing Laboratory Plasma specimen [facility] DEPARTMENT OF PATHOLOGY AND [facility] MEDICINE [address] [place] [address] * Basic metabolic panel (11/08/2017 4:00 AM) [...] 10.2 mg/dL Specimen Performing Laboratory Plasma specimen [facility] DEPARTMENT [place] [address] * Hepatitis B surface antigen (11/08/2017 12:05 AM) Component Value Ref Range Hepatitis B surface Ag Non-reactive Non-reactive Specimen Performing Laboratory Blood [facility] DEPARTMENT OF PATHOLOGY AND [facility] MEDICINE [address] [place] [address] * ECG 12 lead (11/07/2017 8:52 PM) Only the most recent of 2 results within the time period is included. Component Value Ref Range Ventricular rate 74 Atrial rate 74 OH interval 168 QRSD interval 88 QT interval 448 QTC interval 497 P axis 1 65 QRS axis 1 51 T wave axis 47 EKG impression Normal sinus rhythm-Prolonged QT-Abnormal ECG-In automated comparison with ECG of 28-AUG-2017 10:10,-T wave inversion no longer evident in Inferior leads-Nonspecific T wave abnormality has replaced inverted T waves in Anterior leads- Specimen Performing Laboratory [facility] MUSE [address] [place] [address] * PV duplex hemodialysis avg avf access (11/07/2017 3:35 PM) Only the most recent of 2 results within the time period is included. Specimen Performing Laboratory [facility] [address] [place] [address] Narrative PERIPHERAL VASCULAR LABORATORY AV Graft - Fistula Report [address] [place], [place] Pat.Name:ITALIA TAVARES Pat.ID:[id number] St.Date: 11/07/2017 Refer.MD:HAVEN RUIZ MD Exam Time: 1:54:00 PMStudy Type:AV Graft - Fistula DOBAge:1955,61YSex: FEMALE Sonogrphr: Zunilda Cunningham RVSPat. Stat.:Outpatient CPT - 4: 83790 Echo Event ID:[id number] Order ID:[id number] Reason for Study:Right ring finger discoloration for [...] Brachial Artery to Brachial Vein:Graft Brachial A [id number] cm/s Right AVG Arterial Anast. Brachial Artery to Brachial Vein:Graft AVG AAnast PSV 659 cm/s Right AVG Arterial Side Brachial Artery to Brachial Vein:Graft AVG ASide [id number] cm/s Right AVG Arterial Side 1 Brachial Artery to Brachial Vein:Graft AVG ASide 1 PSV 224 cm/s Right AVG Arterial Side 2 Brachial Artery to Brachial Vein:Graft AVG ASide 2 PSV 194 cm/s Right AVG Mid Brachial Artery to Brachial Vein:Graft AVG Mid [id number] cm/s Right AVG Vein Side Brachial Artery to Brachial Vein:Graft AVG Vn Side PSV 193 cm/s Right AVG Vein Side 1 Brachial Artery to Brachial Vein:Graft AVG Vn Side 1 P 206 cm/s Right AVG Vein Anastomosis Brachial Artery to Brachial Vein:Graft AVG Vn Anast PS 130 cm/s Right Brachial V Prx Brachial Artery to Brachial Vein:Graft Brachial V Qxp386 cm/s Right Axillary V Mid Brachial Artery to Brachial Vein:Graft Axillary V Mid 64 cm/s Right Subclavian V Mid Brachial Artery to Brachial Vein:Graft Subclavian V Mi76 cm/s Right Subclavian V Central Brachial Artery to Brachial Vein:Graft Subclavian V Ce58 cm/s Signed 11/10/2017 08:57 AM Abida Desouza MD, RPVI Procedure Note Interface, Radiology Results In - 11/10/2017 8:58 AM [facility] PERIPHERAL VASCULAR LABORATORY AV Graft - Fistula Report [address] [place] [address] Pat.Name: ITALIA TAVARES Pat.ID: [id number] .Date: 11/07/2017 Refer.MD: HAVEN RUIZ MD Exam Time: 1:54:00 PM Study Type:AV Graft - Fistula Age: 1 1955,61Y Sex: FEMALE Sonogrphr: BILL Briceno Pat. Stat.:Outpatient CPT - 4: 03937 Echo Event ID:[id number] Order ID: [id number] Reason for Study:Right ring finger discoloration for [...] PM) Specimen Performing Laboratory [facility] [address] [place] [address] [facility] PERIPHERAL VASCULAR LABORATORY Upper Extremity Venous Duplex Report [address] [place], [place] Pat.Name:ITALIA TAVARES Pat.ID:[id number] St.Date: 11/07/2017 Refer.MD:HAVEN RUIZ MD Exam Time: 1:19:00 PMStudy Type:UE Venous DOBAge:1955,61YSex: FEMALE Sonogrphr: Gerard Briceno. Stat.:Outpatient CPT - 4: 17005 Echo Event ID:[id number] Order ID:[id number] Reason for Study:Right upper extremity edema s/p [...] Radiology Results In - 11/10/2017 8:57 AM OIL BAY TECHNICIAN PERIPHERAL VASCULAR LABORATORY Upper Extremity Venous Duplex Report [address] [place] [address] Pat.Name: ITALIA TAVARES Pat.ID: [id number] St.Date: 11/07/2017 Refer.MD: HAVEN RUIZ MD Exam Time: 1:19:00 PM Study Type:UE Venous Age: 1 1955,61Y Sex: FEMALE Sonogrphr: BILL Briceno Pat. Stat.:Outpatient CPT - 4: 08064 Echo Event ID:[id number] Order ID: [id number] Reason for Study:Right upper extremity edema s/p [...] - 148 mEq/L instrument by DAXA Iyer [id number] POC potassium 4.2 3.5 - 5.0 mEq/L POC hematocrit 32 (L) 37 - 47 % POC glucose 130 (H) 65 - 99 mg/dL Specimen Performing Laboratory [facility] DEPARTMENT OF PATHOLOGY AND GENOMIC MEDICINE [address] [place] [address] * XR Chest 1 Vw Portable (08/28/2017 11:05 AM) Specimen Performing Laboratory [facility] [address] [place] [address] Narrative EXAMINATION:XR CHEST 1 VW PORTABLE CLINICAL HISTORY:PRE-OP COMPARISON:July 14, 2016 IMPRESSION: 1.Prior sternotomy. Left-sided catheter extends into the right atrium. 2.There is no pneumothorax. 3.There has been resolution of volume loss and fluid on the left side since the prior study. [id number] Procedure Note Hm Interface, Radiology Results Incoming - 08/28/2017 11:19 AM CDT EXAMINATION: XR CHEST 1 VW PORTABLE CLINICAL HISTORY: PRE-OP COMPARISON: July 14, 2016 IMPRESSION: 1. Prior sternotomy. Left-sided catheter extends into the right atrium. 2. There is no pneumothorax. 3. There has been resolution of volume loss and fluid on the left side since the prior study. [id number] after 03/01/2017 Insurance Payer Benefit Subscriber ID Type Phone Address Plan / Group MEDICARE MEDICARE xxxxxxxxxx Medicare [place], [place] PART A AND B AARP AARP xxxxxxxxx-xx Commercial SUPPLEMENT
[2018-03-02] MEDS ORDERED: ASPIRIN81 MG (19:52)
[2018-03-02] MEDS ORDERED: ATORVASTATIN CA20 MG PO (19:52)
[2018-03-02] MEDS ORDERED: CLOPIDOGREL75 MG PO (19:52)
[2018-03-03] MEDS ORDERED: LATANOPROST2.5 ML OP (22:40)
== END 2018-03-02 18:42 | disposition left against medical advice (07) ==
LOC: ER 17:55
DX: R10.84 Generalized abdominal pain (principal); R11.0 Nausea; K80.00 Calculus of gallbladder with acute cholecystitis without obstruction; I25.10 Atherosclerotic heart disease of native coronary artery without angina pectoris; I12.0 Hypertensive chronic kidney disease with stage 5 chronic kidney disease or end stage renal disease; E11.22 Type 2 diabetes mellitus with diabetic chronic kidney disease; N18.6 End stage renal disease; Z99.2 Dependence on renal dialysis; Z95.1 Presence of aortocoronary bypass graft
CPT/HCPCS: 99281

== ENCOUNTER 2018-03-02 18:38 | Inpatient (IN) | payer MEDICARE ==
[~2018-03-02] VITALS: Ht 157.5 cm; Wt 55.1 kg
--- OUTSIDE RECORDS SUMMARY | 2018-03-02 18:41 | XMS REPORT | Clinical Summary ---
Author Author [facility] Address Unknown Phone Unavailable Care Team Providers Care Central Control Room Operator Name Role Phone Ernst Sosa MD PCP [...] type; ESRD (end stage renal disease) 11/07/2017 [facility] Peter De La Cruz MD ESRD (end stage renal - Encounter disease) on dialysis 11/08/2017 11/07/2017 Office Visit Cardiovascular Deshaun Shine, Steal syndrome as RAFTSMAN complication of dialysis access, initial encounter (Primary Dx) 11/07/2017 Orders Only Cardiovascular Fátima Ashland, ESRD ( end stage renal RAFTSMAN disease) on dialysis (Primary Dx) 11/07/2017 Orders Only Cardiovascular Deshaun Shine, RAFTSMAN 11/07/2017 Orders Only Cardiovascular Cynthia Colon Swelling ( Primary Dx) 11/06/2017 Telephone Cardiovascular Cynthia Colon Steal syndrome as complication of dialysis access, initial encounter (Primary Dx) 10/14/2017 Office Visit Cardiovascular Deshaun Shine, ESRD ( end stage renal RAFTSMAN disease) 2013 MWF (Primary Dx) 09/30/2017 Office Visit Cardiovascular Deshaun Shine, ESRD ( end stage renal RAFTSMAN disease) on dialysis (Primary Dx) 09/24/2017 Documentation [...] Taken Blood Pressure 184/75 01/13/2018 12:21 AM J2EE ARCHITECT Pulse 82 01/13/2018 12:21 AM J2EE ARCHITECT Temperature 36.3 C (97.4 F) 01/12/2018 6:05 PM J2EE ARCHITECT Respiratory Rate 14 01/13/2018 12:21 AM J2EE ARCHITECT Oxygen Saturation 100% 01/13/2018 12:21 AM J2EE ARCHITECT Inhaled Oxygen - - Concentration Weight 54.3 kg (119 lb 9.6 oz) 11/08/2017 4:43 AM J2EE ARCHITECT Height 157.5 cm (5' 2") 11/07/2017 12:27 PM J2EE ARCHITECT Body Mass Index 21.88 11/08/2017 4:43 AM J2EE ARCHITECT Plan of Treatment Health Maintenance Due Date Last Done Comments COLONOSCOPY 2007 MAMMOGRAM 12/27/2016 12/27/2014 INFLUENZA VACCINE 07/01/2017 ZOSTER VACCINE 2017 PAP SMEAR 12/27/2017 12/27/2014 Implants Implanted Type Area Shore Worker Device Expiration Model / Identifier Date Serial / Lot Clip Ligtng Weck Hemoclip Plus W/ Medical Right: WECK CLOSURE 2021 [id number] / Tape Ti Sm - [id number] Clips for Arm, Upper SYSTEMS / Implanted: Qty: 2 on 08/28/2017 by Internal [id number] Haven Ruiz MD Use Clip Ligtng Weck Hemoclip Plus W/ Medical Right: TELEFLEX 04/17/2022 [id number] / Tape Ti Med - [id number] Clips for Arm, Upper MEDICAL / Implanted: Qty: 2 on 08/28/2017 by Internal [id number] Haven Ruiz MD Use Graft Vasclr Hmodial Bovine Crtd Vascular Right: ARTEGRAFT 2018 [id number] / Artery 45cm 7mm - [id number] Graft Arm, Upper / Implanted: 08/28/2017 (Quantity not [id number] on file) Procedures Procedure Name Priority Date/Time Associated Diagnosis Comments HEMODIALYSIS Routine 11/07/2017 8:39 PM J2EE ARCHITECT WY REMOVAL TUNNELED CV Routine 10/15/2017 ESRD (end stage renal Results for this CATH W/O SUBQ PORT OR 10:04 AM J2EE ARCHITECT disease) 2014 MWF procedure are in the [...] None seen UA Specimen Performing Laboratory Urine [facility] DEPARTMENT OF PATHOLOGY AND [facility] [address] [place] [address] * Gram stain (01/12/2018 10:34 PM) Component Value Ref Range Gram stain result No WBC's or organisms seen. Comment: Specimen Information Specimen Source: Urine Specimen Site: Clean catch Specimen Performing Laboratory Urine [facility] [place] [address] * Urine culture (01/12/2018 10:34 PM) Component Value Ref Range Urine culture isolate Mixed jeremías- more than 3 organisms isolated. Consider resubmitting specimen if clinically indicated. Comment: Specimen Information Specimen Source: Urine Specimen Site: Clean catch Specimen Performing Laboratory Urine [facility] [place] [address] * Estimated GFR (01/12/2018 9:32 PM) Only [...] and Americans. Specimen Performing Laboratory Plasma specimen [facility] DEPARTMENT OF PATHOLOGY AND GENOMIC MEDICINE [address] [place] [address] * CBC with platelet and differential (01/12/2018 [...] (promyelocytes, myelocytes, metamyelocytes) Specimen Performing Laboratory Blood [facility] DEPARTMENT OF PATHOLOGY AND [facility] [address] [place] [address] * Lipase level (01/12/2018 9:32 PM) Component Value Ref Range Lipase 78 (H) 13 - 60 U/L Specimen Performing Laboratory Plasma specimen [facility] DEPARTMENT OF PATHOLOGY AND [address] [address] * Comprehensive metabolic panel (01/12/2018 9:32 PM) [...] 1.2 mg/dL Specimen Performing Laboratory Plasma specimen [facility] DEPARTMENT OF PATHOLOGY AND GENOMIC MEDICINE [address] [place] [address] * CT Renal Stone Protocol (01/12/2018 8:51 PM) Specimen Performing Laboratory [facility] [address] [place] [address] Narrative EXAMINATION:CT RENAL STONE PROTOCOL CLINICAL HISTORY:Flank [...] the possibility of a ureteral stricture. 4.Cholelithiasis. [facility]-[id number] Procedure Note Interface, Radiology Results Incoming - 01/12/2018 9:02 PM J2EE ARCHITECT EXAMINATION: CT RENAL STONE PROTOCOL CLINICAL HISTORY: [...] possibility of a ureteral stricture. 4. Cholelithiasis. [facility]-[id number] * POC glucose (11/08/2017 8:21 AM) Only the most recent of 3 results within the time period is included. Component Value Ref Range POC glucose 77 65 - 99 mg/dL Comment: [facility] Notified RN Meter ID: [id number] Senior Instructor: Pancho Corcoran Specimen Performing Laboratory [facility] DEPARTMENT OF PATHOLOGY AND GENOMIC MEDICINE [address] [place] [address] * Partial thromboplastin time, activated (11/08/2017 6:00 AM) Component Value Ref Range PTT SEE COMMENT 23.0 - 36.0 sec Comment: PTT therapeutic range for unfractionated heparin is 61.0-112.0 seconds which corresponds to Anti-Xa 0.3-0.7 U/ml. Footnote--------- Unable to perform testing, specimen is CLOTTED. Recollect requested for PT AND PTT (tests). MICKEY WAGNER (name/location) notified by A (tech ID) at [facility] (date/time). Credit issued. Corrected result; previously reported as 21.7 on 11/08/2017 at 08:06 by [facility] Specimen Performing Laboratory Blood [facility] DEPARTMENT OF PATHOLOGY AND [facility] [address] [place] [address] * Prothrombin time with INR (11/08/2017 6:00 AM) Component Value Ref Range Prothrombin time SEE COMMENT 12.0 - 15.0 sec Comment: Footnote--------- PLEASE DISREGARD PREVIOUS RESULT. Unable to perform testing, specimen is CLOTTED. Recollect requested for PT AND PTT (tests). MICKEY WAGNER (name/location) notified by [facility] (tech ID) at 11/08/2017 08:09 (date/time). Credi t issued. Corrected result; previously reported as 14.1 on 11/08/2017 at 08:06 by [facility] INR SEE COMMENT Comment: The International Normalized Ratio (INR) is a therapeutic monitoring tool for patients who are stable on oral anticoagulant therapy. An INR of 2.0-3.0 is suggested for deep vein thrombosis/pulmonary embolism. Footnote--------- Corrected result; previously reported as 1.1 on 11/08/2017 at 08:06 by [facility] Specimen Performing Laboratory Blood [facility] DEPARTMENT OF PATHOLOGY AND GENOMIC MEDICINE [address] [place] [address] * Magnesium level (11/08/2017 4:00 AM) Component Value Ref Range Magnesium 2.2 1.6 - 2.6 mg/dL Specimen Performing Laboratory Plasma specimen [facility] DEPARTMENT OF PATHOLOGY AND [facility] [address] [place] [address] * Basic metabolic panel (11/08/2017 4:00 AM) [...] 10.2 mg/dL Specimen Performing Laboratory Plasma specimen [facility] [place] [address] * Hepatitis B surface antigen (11/08/2017 12:05 AM) Component Value Ref Range Hepatitis B surface Ag Non-reactive Non-reactive Specimen Performing Laboratory Blood [facility] DEPARTMENT OF PATHOLOGY AND [facility] [address] [place] [address] * ECG 12 lead (11/07/2017 8:52 PM) Only the most recent of 2 results within the time period is included. Component Value Ref Range Ventricular rate 74 Atrial rate 74 WY interval 168 QRSD interval 88 QT interval 448 QTC interval 497 P axis 1 65 QRS axis 1 51 T wave axis 47 EKG impression Normal sinus rhythm-Prolonged QT-Abnormal ECG-In automated comparison with ECG of 28-AUG-2017 10:10,-T wave inversion no longer evident in Inferior leads-Nonspecific T wave abnormality has replaced inverted T waves in Anterior leads- Specimen Performing Laboratory [facility] MUSE [address] [place] [address] * PV duplex hemodialysis avg avf access (11/07/2017 3:35 PM) Only the most recent of 2 results within the time period is included. Specimen [facility] [address] [place] [address] Narrative PERIPHERAL VASCULAR LABORATORY AV Graft - Fistula Report [address] [place] Pat.Name:ITALIA TAVARES Pat.ID:[id number] St.Date: 11/07/2017 Refer.MD:HAVEN RUIZ MD Exam Time: 1:54:00 PMStudy Type:AV Graft - Fistula DOBAge:1955,61YSex: FEMALE Sonogrphr: Zunilda Cunningham RVSPat. Stat.:Outpatient CPT - 4: 51398 Echo Event ID:[id number] Order ID:[id number] Reason for Study:Right ring finger discoloration for [...] Brachial Artery to Brachial Vein:Graft Brachial A Epk392 cm/s Right AVG Arterial Anast. Brachial Artery to Brachial Vein:Graft AVG AAnast PSV 659 cm/s Right AVG Arterial Side Brachial Artery to Brachial Vein:Graft AVG ASide FRT142 cm/s Right AVG Arterial Side 1 Brachial Artery to Brachial Vein:Graft AVG ASide 1 PSV 224 cm/s Right AVG Arterial Side 2 Brachial Artery to Brachial Vein:Graft AVG ASide 2 PSV 194 cm/s Right AVG Mid Brachial Artery to Brachial Vein:Graft AVG Mid ZVY177 cm/s Right AVG Vein Side Brachial Artery to Brachial Vein:Graft AVG Vn Side PSV 193 cm/s Right AVG Vein Side 1 Brachial Artery to Brachial Vein:Graft AVG Vn Side 1 P 206 cm/s Right AVG Vein Anastomosis Brachial Artery to Brachial Vein:Graft AVG Vn Anast PS 130 cm/s Right Brachial V Prx Brachial Artery to Brachial Vein:Graft Brachial V Mmb238 cm/s Right Axillary V Mid Brachial Artery to Brachial Vein:Graft Axillary V Mid 64 cm/s Right Subclavian V Mid Brachial Artery to Brachial Vein:Graft Subclavian V Mi76 cm/s Right Subclavian V Central Brachial Artery to Brachial Vein:Graft Subclavian V Ce58 cm/s Signed 11/10/2017 08:57 AM Abida Desouza MD, RPVI Procedure Note Interface, Radiology Results In - 11/10/2017 8:58 AM [facility] PERIPHERAL VASCULAR LABORATORY AV Graft - Fistula Report [address] [place] [address] Pat.Name: ITALIA TAVARES Pat.ID: [id number] .Date: 11/07/2017 Refer.MD: HAVEN RUIZ MD Exam Time: 1:54:00 PM Study Type:AV Graft - Fistula Age: 1 1955,61Y Sex: FEMALE Sonogrphr: BILL Briceno Pat. Stat.:Outpatient CPT - 4: 83952 Echo Event ID:[id number] Order ID: [id number] Reason for Study:Right ring finger discoloration for [...] PM) Specimen Performing Laboratory [facility] [address] [place] [address] [facility] PERIPHERAL VASCULAR LABORATORY Upper Extremity Venous Duplex Report [address] [place], [place] Pat.Name:ITALIA TAVARES Pat.ID:[id number] St.Date: 11/07/2017 Refer.MD:HAVEN RUIZ MD Exam Time: 1:19:00 PMStudy Type:UE Venous DOBAge:1955,61YSex: FEMALE Sonogrphr: Gerard Briceno. Stat.:Outpatient CPT - 4: 32148 Echo Event ID:[id number] Order ID:[id number] Reason for Study:Right upper extremity edema s/p [...] pain level. Patient seen in clinic by [facility] PHYSICIAN INTERPRETATION 1.Chronic venous thrombosis of the right forearm cephalic vein. 2.The right central veins appear patent. 3.Right tunneled dialysis catheter. Signed 11/10/2017 08:57 AM Abida Desouza MD, RPVI Procedure Note Interface, Radiology Results In - 11/10/2017 8:57 AM J2EE ARCHITECT PERIPHERAL VASCULAR LABORATORY Upper Extremity Venous Duplex Report [address] [place] [address] Pat.Name: ITALIA TAVARES Pat.ID: [id number] St.Date: 11/07/2017 Refer.MD: HAVEN RUIZ MD Exam Time: 1:19:00 PM Study Type:UE Venous Age: 1 1955,61Y Sex: FEMALE Sonogrphr: BILL Briceno Pat. Stat.:Outpatient CPT - 4: 46109 Echo Event ID:[id number] Order ID: [id number] Reason for Study:Right upper extremity edema s/p [...] - 148 mEq/L instrument by DAXA Iyer [id number] POC potassium 4.2 3.5 - 5.0 mEq/L POC hematocrit 32 (L) 37 - 47 % POC glucose 130 (H) 65 - 99 mg/dL Specimen Performing Laboratory [facility] DEPARTMENT OF PATHOLOGY AND GENOMIC MEDICINE [address] [place] [address] * XR Chest 1 Vw Portable (08/28/2017 11:05 AM) Specimen Performing Laboratory [facility] [address] [place] [address] Narrative EXAMINATION:XR CHEST 1 VW PORTABLE CLINICAL HISTORY:PRE-OP COMPARISON:July 14, 2016 IMPRESSION: 1.Prior sternotomy. Left-sided catheter extends into the right atrium. 2.There is no pneumothorax. 3.There has been resolution of volume loss and fluid on the left side since the prior study. [id number] Procedure Note Hm Interface, Radiology Results Incoming - 08/28/2017 11:19 AM CDT EXAMINATION: XR CHEST 1 VW PORTABLE CLINICAL HISTORY: PRE-OP COMPARISON: July 14, 2016 IMPRESSION: 1. Prior sternotomy. Left-sided catheter extends into the right atrium. 2. There is no pneumothorax. 3. There has been resolution of volume loss and fluid on the left side since the prior study. [id number] after 03/01/2017 Insurance Payer Benefit Subscriber ID Type Phone Address Plan / Group MEDICARE MEDICARE xxxxxxxxxx Medicare [place], [place] PART A AND B AARP AARP xxxxxxxxx-xx Commercial SUPPLEMENT
[2018-03-02] MEDS ORDERED: ASPIRIN81 MG (19:52)
[2018-03-02] MEDS ORDERED: ATORVASTATIN CA20 MG PO (19:52)
[2018-03-02] MEDS ORDERED: CLOPIDOGREL75 MG PO (19:52)
[2018-03-02] MEDS ORDERED: ACETAMINOPHEN 325 MG TAB PO ONE (22:00)
[2018-03-02] MEDS ORDERED: CEFTRIAXONE SOD 1 GM/NS 50 ML 50 ML IV STA (22:02)
[2018-03-02] MEDS ORDERED: METRONIDAZOLE 500MG/NS 100ML 100 ML IV ONE (22:15)
[2018-03-03] VITALS (9 sets, daily range): BP systolic 114–150; BP diastolic 56–63
[2018-03-03 09:01] LABS: BASOPHILS % 0.2 % (0.0-1.0); EOSINOPHILS # (AUTO) 0.1 (0.0-0.4); EOSINOPHILS % 0.4 % (0.0-6.0); HEMATOCRIT 33.8 % (34.2-44.1); HEMOGLOBIN 11.3 g/dL (12.0-16.0); LYMPHOCYTES # (AUTO) 1.7 (1.0-3.2); LYMPHOCYTES % 9.9 % (18.0-39.1); MEAN CORPUSCULAR HEMOGLOBIN 30.4 pg (28-32); MEAN CORPUSCULAR HGB CONC 33.4 g/dL (31-35); MEAN CORPUSCULAR VOLUME 90.9 fL (81-99); MONOCYTES # (AUTO) 0.7 (0.2-0.8); NEUTROPHILS # (AUTO) 14.3 (2.1-6.9); PLATELET COUNT 129 x10e3/uL (140-360); RED BLOOD COUNT 3.72 x10e6/uL (3.6-5.1); RED CELL DISTRIBUTION WIDTH 14.6 % (11.7-14.4)
[2018-03-03 09:20] LABS: ALBUMIN 3.1 g/dL (3.5-5.0); ALBUMIN/GLOBULIN RATIO 0.9 (0.8-2.0); ANION GAP 18.3 mmol/L (8-16); CREATININE, SERUM 6.6 mg/dL (0.57-1.11); POTASSIUM 4.3 mmol/L (3.5-5.1)
--- NOTE | 2018-03-03 09:40 | History and Physical ---
CHIEF COMPLAINT: Abdominal pain. HISTORY OF PRESENT ILLNESS: This is a 62-year-old woman who presented to [facility] with a 1-day history of intense mid-epigastric and right upper quadrant pain. The patient states the pain radiates to her right shoulder as well as her right flank area. The patient has a known history of cholelithiasis as well as chronic cholecystitis. In October 2017, the patient was seen by a general surgeon for her chronic cholecystitis, but the patient elected not to pursue any interventional treatment. The patient also complained of nausea with this intense pain. The patient underwent abdominal ultrasound in the emergency room which revealed cholelithiasis but no clear evidence of acute cholecystitis. The patient had lab work done in the emergency room that revealed elevated hepatic transaminases, namely ALT 94, alkaline phosphatase 290, and an amylase level of 301. The patient's AST was elevated to 212. The patient's GGT was also elevated with a level of 245. The patient was admitted for further evaluation and treatment. REVIEW OF SYSTEMS GENERAL: Weight has been stable. No fever or chills. HEENT: No headache. No vision changes. CARDIOVASCULAR/RESPIRATORY: No chest pain. No shortness of breath. No cough. GI: Intense mid-epigastric and right upper quadrant pain radiating to her right shoulder that began on the day of admission. The patient states she was nauseated, but no vomiting and no diarrhea. : No UTI symptoms. The patient states she urinates minimally because she is on dialysis. NEUROMUSCULAR: Complained of right shoulder and right flank pain associated with the abdominal pain. ALLERGIES: NO KNOWN DRUG ALLERGIES. PAST MEDICAL HISTORY 1. Gallstones with biliary dyskinesia. 2. End-stage renal disease. 3. Coronary artery disease. 4. Type-2 diabetes mellitus. 5. Anemia secondary to chronic kidney disease/chronic disease/iron deficiency. 6. Hypertensive heart disease. 7. Hyperlipidemia. 8. Hypothyroidism. PAST SURGICAL HISTORY 1. Coronary artery bypass grafting in March 2016. 2. Right upper extremity AV fistula placement (nonfunctioning). 3. Right upper extremity AV graft placement on September 04, 2017. 4. Left carpal tunnel surgery. 5. Right knee surgery. SOCIAL HISTORY: This woman is and lives with her . She is currently unemployed but receiving disability benefits. The patient has no history of tobacco or alcohol use. FAMILY HISTORY: Multiple family members have hypertension and adult-onset diabetes mellitus. The patient has 2 sisters who were diagnosed with end-stage renal disease and one of the sisters actually from complications of diabetes mellitus and end-stage renal disease. HOME MEDICATIONS 1. Clopidogrel 75 mg a day. 2. Pantoprazole 40 mg daily. 3. Levothyroxine 50 mcg daily. 4. Levemir insulin 20 units daily. 5. Lyrica 75 mg b.i.d. 6. Aspirin 81 mg daily. 7. Atorvastatin 40 mg nightly. 8. Carvedilol 25 mg b.i.d. 9. Amlodipine 5 mg daily. 10. Tylenol 325 mg 1 every 6 hours p.r.n. pain. 11. Lasix 40 mg p.o. 3 times a week. PHYSICAL EXAMINATION GENERAL: She is awake, alert, fully oriented, in no distress, very pleasant and cooperative with exam. Her adult daughter is at bedside. VITAL SIGNS: Blood pressure is 117/56, pulse 68, respiratory rate 16, temperature 96.6, oxygen saturation 98% on room air. Height is 5 feet 2 inches, and weight is 123 pounds. Calculated body mass index is 22. INTEGUMENT: Skin is warm and dry. No pallor, jaundice or diaphoresis. HEENT: Anicteric sclerae with moist mucous membranes. NECK: Supple. CARDIOVASCULAR: Regular rate and rhythm. No murmurs, gallops or rubs. LUNGS: No rales. No rhonchi. No wheezing. ABDOMEN: Soft. She has mid-epigastric tenderness. She also has tenderness in the right upper quadrant area. No organomegaly or mass is appreciated. EXTREMITIES: No edema or deformity. NEUROLOGIC: Intact. DIAGNOSES 1. Gallstone pancreatitis. 2. Chronic cholecystitis/biliary dyskinesia. 3. End-stage renal disease. 4. Type-2 diabetes mellitus. 5. Coronary artery disease (history of coronary artery bypass grafting in March 2016). PLAN 1. Consult general surgery. 2. Nothing by mouth. 3. Pain control. 4. Antiemetics. 5. Intravenous antibiotics. 6. Will follow hepatic transaminases. Job#: [id number]
[2018-03-03] MEDS: GLIPIZIDE 5 MG TAB PO SCH (17:00)
[2018-03-03] MEDS: CARVEDILOL 12.5 MG TAB PO SCH (17:00)
[2018-03-03] MEDS: FUROSEMIDE 40 MG TAB PO SCH (17:00)
[2018-03-03] MEDS: ATORVASTATIN 20 MG TAB PO SCH (20:18)
[2018-03-03] MEDS ORDERED: LATANOPROST2.5 ML OP (22:40)
[2018-03-04] VITALS: BP 145/63
[2018-03-04 03:40] VITALS: BP 140/64
[2018-03-04] MEDS: LEVOTHYROXINE SODIUM 50 MCG TAB PO SCH ×2 (06:04→21:34)
[2018-03-04 07:20] LABS: BASOPHILS % 0.3 % (0.0-1.0); EOSINOPHILS # (AUTO) 0.5 (0.0-0.4); EOSINOPHILS % 4.8 % (0.0-6.0); HEMATOCRIT 33.2 % (34.2-44.1); HEMOGLOBIN 10.9 g/dL (12.0-16.0); LYMPHOCYTES # (AUTO) 1.9 (1.0-3.2); MEAN CORPUSCULAR HEMOGLOBIN 29.8 pg (28-32); MEAN CORPUSCULAR HGB CONC 32.8 g/dL (31-35); MEAN CORPUSCULAR VOLUME 90.7 fL (81-99); MONOCYTES # (AUTO) 0.6 (0.2-0.8); MONOCYTES % 5.2 % (4.4-11.3); NEUTROPHILS # (AUTO) 7.5 (2.1-6.9); NEUTROPHILS % 71.2 % (38.7-80.0); PLATELET COUNT 124 x10e3/uL (140-360); RED BLOOD COUNT 3.66 x10e6/uL (3.6-5.1); RED CELL DISTRIBUTION WIDTH 14.8 % (11.7-14.4)
[2018-03-04 07:40] LABS: ALBUMIN 3.1 g/dL (3.5-5.0); ALBUMIN/GLOBULIN RATIO 0.9 (0.8-2.0); ANION GAP 17.9 mmol/L (8-16); CALCIUM 8.4 mg/dL (8.4-10.2); CREATININE, SERUM 8.31 mg/dL (0.57-1.11); POTASSIUM 4.9 mmol/L (3.5-5.1)
[2018-03-04 07:45] LABS: AMYLASE 161 U/L (25-125); LIPASE 189 U/L (8-78)
[2018-03-04 07:53] VITALS: BP 146/65
[2018-03-04] MEDS: AMLODIPINE BESYLATE 5 MG TAB PO SCH (08:45)
[2018-03-04] MEDS: CLOPIDOGREL BISULFATE 75 MG TAB PO SCH (08:45)
[2018-03-04] MEDS: PANTOPRAZOLE SOD 40 MG TABEC PO SCH (08:45)
[2018-03-04] MEDS: ASPIRIN 81 MG CHEW TAB PO SCH (08:45)
[2018-03-04] MEDS: FUROSEMIDE 40 MG TAB PO SCH ×2 (08:45→17:05)
[2018-03-04] MEDS: CARVEDILOL 12.5 MG TAB PO SCH ×2 (08:45→17:05)
[2018-03-04] MEDS: GLIPIZIDE 5 MG TAB PO SCH ×2 (09:00→17:00)
[2018-03-04] MEDS: INSULIN DETEMIR 100 UNIT/ML PEN SQ SCH (09:00)
[2018-03-04 12:00] VITALS: BP 125/60
[2018-03-04] MEDS ORDERED: SODIUM CHLORIDE 0.9% 1000ML 2,000 ML IV PRN (14:00)
[2018-03-04] MEDS ORDERED: MANNITOL 25% 12.5GM/50 ML VIAL IV PRN (14:00)
[2018-03-04] MEDS ORDERED: SODIUM CHLORIDE 0.9% 250ML 500 ML IV PRN (14:00)
[2018-03-04] MEDS ORDERED: ALBUMIN 25% 12.5GM 0.25 GM/ML BTL IV PRN (14:00)
--- NOTE | 2018-03-04 14:06 | Consultation ---
DATE OF CONSULTATION: March 04, 2018 NEPHROLOGY CONSULT REASON FOR THE CONSULT: End-stage renal disease. HISTORY OF PRESENT ILLNESS: This is a 62-year-old female who is known to our service as we manage her dialysis as an outpatient. She dialyzes every Friday/Friday/Friday at [facility]. She is also known to have multiple medical problems including coronary artery disease status post CABG, diabetes, hypertension, dyslipidemia, hypothyroid. She basically came complaining of epigastric pain radiating to the right upper quadrant that has been going on for a couple of days before admission. The scale is 8 to 9 over 10 with mild nausea but no vomiting, and also she reports some loose stools and also fever. She has a history of cholelithiasis per previous imaging that was done that showed biliary dyskinesia and chronic cholecystitis. She is being admitted for further evaluation, and she will undergo laparoscopic cholecystectomy tomorrow given that she is presenting with pancreatitis with elevation in her LFTs and lipase, amylase, and we are consulted to manage dialysis as an inpatient. PAST MEDICAL HISTORY: As mentioned above. PAST SURGICAL HISTORY: Status post AV fistula, status post CABG in 2016, status post carpal tunnel surgery, status post right knee surgery and status post colonoscopy. SOCIAL HISTORY: She is , living with her . No smoking, alcohol or IV drug abuse. FAMILY HISTORY: Positive for hypertension and diabetes. VITAL SIGNS: Today, blood pressure 125/60, heart rate 69, temperature 98.4. PHYSICAL EXAMINATION GENERAL APPEARANCE: No acute distress x3. HEAD, EARS, EYES, NECK: No lymphadenopathy. HEART: Regular rate and rhythm. LUNGS: Good bilateral air entry. ABDOMEN: Soft, nontender. EXTREMITIES: Trace edema. LABS: White count came down from 16.8 to 10, hemoglobin is 10.9. Potassium is 4.9, BUN is 50, creatinine 8.3. Her AST was 242, coming down to 109. Her ALT is 110 and her amylase was 223, coming down. Lipase is down to 189. ASSESSMENT AND PLAN 1. End-stage renal disease. Hemodialysis every Friday/Friday/Friday. Dialyzed today per schedule. Orders have been given. 2. Electrolytes, low potassium. Diet and bath. 3. Anemia of chronic disease. Epogen if hemoglobin drops below 10. 4. Hypertension. Blood pressure is controlled. 5. Diabetes. On insulin. 6. Coronary artery disease status post coronary artery bypass graft. I recently talked with Dr. Haddad, her sample carrier. Given her RV dysfunction, we are going to challenge more UF and last week she had extra ultrafiltration treatment as an outpatient. 7. Chronic cholecystitis, presenting with pancreatitis. She is undergoing laparoscopic cholecystectomy tomorrow. We will follow on the patient. Thank you for the consult. Job#: [id number]
[2018-03-04 16:10] VITALS: BP 121/59
[2018-03-04] MEDS ORDERED: PROPOFOL IV EMULSION 10 MG/ML 20 ML VIAL ONE (17:48)
[2018-03-04] MEDS ORDERED: ONDANSETRON HCL INJ 2 MG/ML VIAL ONE (17:48)
[2018-03-04] MEDS ORDERED: NEOSTIGMINE 5 MG/5ML SYR ONE (17:48)
[2018-03-04] MEDS ORDERED: GLYCOPYRROLATE INJ 1MG/ 5 ML SYR ONE (17:48)
[2018-03-04] MEDS ORDERED: PHENYLEPHRINE HCL 1% 10 MG/ML VIAL ONE (17:48)
[2018-03-04] MEDS ORDERED: LIDOCAINE HCL 2% LOCAL INJ 5 ML SDV VIAL INJ ONE (17:48)
[2018-03-04] MEDS ORDERED: DEXAMETHASONE SOD PHOS INJ 4 MG/ML VIAL ONE (17:48)
[2018-03-04] MEDS ORDERED: SEVOFLURANE INHAL SOLN 250 ML PEN BTL ONE (17:48)
--- NOTE | 2018-03-04 18:44 | Consultation ---
DATE OF CONSULTATION: March 04, 2018 CARDIOLOGY CONSULTATION REQUESTING PHYSICIAN: Dr. Jarrell Christopher. REASON FOR CONSULTATION: Cardiac clearance. HISTORY OF PRESENT ILLNESS: This is a 62-year-old woman with history of coronary artery disease status post 5-vessel CABG, diabetes mellitus, hypertension, hyperlipidemia, and end-stage renal disease on hemodialysis who presents with complaints of abdominal pain. The patient is known to have cholelithiasis as well as chronic cholecystitis, but had not had cholecystectomy. She began to have abdominal pain and nausea and presented to the emergency room for further evaluation. She was found to have cholelithiasis on ultrasound. Labs in the ER demonstrated leukocytosis at 16.84 with elevated LFTs, amylase and lipase. She was, therefore, admitted for further evaluation. Cardiology is consulted for cardiac clearance prior to surgery. The patient denies any chest pain, shortness of breath, palpitations, edema, orthopnea, PND, lightheadedness or syncope. She reports she follows with Dr. Haddad for her cardiac care and saw him at the end of last month. REVIEW OF SYSTEMS: Negative except as per HPI. PAST MEDICAL HISTORY: Coronary artery disease, status post 5-vessel CABG, diabetes mellitus, hypertension, hyperlipidemia, end-stage renal disease on hemodialysis, hypothyroidism. PAST SURGICAL HISTORY: CABG, AV fistula placement x2, left carpal tunnel surgery, right knee surgery. SOCIAL HISTORY: Denies tobacco, alcohol or illicit drugs. FAMILY HISTORY: Noncontributory. ALLERGIES: PLEASE SEE EMR. MEDICATIONS: Please see medication list. PHYSICAL EXAMINATION VITAL SIGNS: Temperature 96.8 degrees, pulse 66, respiratory rate 16, blood pressure 121/59, oxygen saturation 97% on room air. GENERAL: Awake, alert, well-nourished, well-developed woman in no acute distress. HEENT: Normocephalic, atraumatic. Pupils are equal. No scleral icterus. NECK: Supple. No thyromegaly or cervical lymphadenopathy. No carotid bruits. LUNGS: Clear to auscultation bilaterally. No wheezes or crackles. CARDIOVASCULAR: Normal rate, regular rhythm. No murmurs. Normal S1 and S2. ABDOMEN: Soft and nontender. EXTREMITIES: No edema. NEUROLOGIC: Nonfocal exam. LABORATORY DATA: WBC 10.52, hemoglobin 10.9, hematocrit 33.2, platelets 124,000, sodium 139, potassium 4.9, chloride 98, CO2 of 28, BUN 15, creatinine 8.31, AST 109, ALT 110, alkaline phosphatase 255, amylase 161, lipase 189. EKG normal sinus rhythm with nonspecific ST and T-wave abnormalities. IMPRESSION 1. Gallstone pancreatitis. 2. Coronary artery disease status post coronary artery bypass graft, 5-vessel, in March 2016. 3. End-stage renal disease on hemodialysis. 4. Diabetes mellitus. 5. Hypertension. 6. Hyperlipidemia. 7. Hypothyroidism. RECOMMENDATIONS: Continue her home cardiac medications. We are attempting to obtain records from her outpatient compactor driver to evaluate her recent cardiac evaluation. Per nephrology, the patient apparently has RV dysfunction for which they have been challenging her with ultrafiltration. Keep the patient euvolemic as much as possible with dialysis. Volume management per nephrology given her end-stage renal disease. We will obtain echocardiogram here to confirm. Further recommendations pending records and echocardiogram. Thank you for this consult. We will continue to follow. Job#: [id number]
[2018-03-04 20:27] VITALS: BP 123/67
[2018-03-04] MEDS: ATORVASTATIN 20 MG TAB PO SCH (21:05)
[2018-03-05] VITALS (51 sets, daily range): BP systolic 56–134; BP diastolic 24–73
[2018-03-05] MEDS: METRONIDAZOLE 250MG/NS 50ML 50 ML IV SCH (04:35)
[2018-03-05 07:15] LABS: BASOPHILS % 0.5 % (0.0-1.0); EOSINOPHILS # (AUTO) 0.5 (0.0-0.4); HEMATOCRIT 36.1 % (34.2-44.1); LYMPHOCYTES # (AUTO) 1.5 (1.0-3.2); LYMPHOCYTES % 19.3 % (18.0-39.1); MEAN CORPUSCULAR HEMOGLOBIN 29.9 pg (28-32); MEAN CORPUSCULAR HGB CONC 33.2 g/dL (31-35); MEAN CORPUSCULAR VOLUME 89.8 fL (81-99); MONOCYTES # (AUTO) 0.6 (0.2-0.8); MONOCYTES % 7.8 % (4.4-11.3); NEUTROPHILS # (AUTO) 4.9 (2.1-6.9); PLATELET COUNT 144 x10e3/uL (140-360); RED BLOOD COUNT 4.02 x10e6/uL (3.6-5.1); RED CELL DISTRIBUTION WIDTH 14.3 % (11.7-14.4)
[2018-03-05 07:33] LABS: ALBUMIN 3.4 g/dL (3.5-5.0); ALBUMIN/GLOBULIN RATIO 0.9 (0.8-2.0); ANION GAP 17.7 mmol/L (8-16); CALCIUM 8.8 mg/dL (8.4-10.2); POTASSIUM 4.7 mmol/L (3.5-5.1)
[2018-03-05] MEDS ORDERED: BUPIVACAINE 0.25%/EPI 30ML SDV INJ ONE (08:59)
[2018-03-05] MEDS: GLIPIZIDE 5 MG TAB PO SCH ×2 (09:00→17:00)
[2018-03-05] MEDS: CARVEDILOL 12.5 MG TAB PO SCH ×2 (09:00→17:00)
[2018-03-05] MEDS: ASPIRIN 81 MG CHEW TAB PO SCH (09:00)
[2018-03-05] MEDS: AMLODIPINE BESYLATE 5 MG TAB PO SCH (09:00)
[2018-03-05] MEDS: PANTOPRAZOLE SOD 40 MG TABEC PO SCH (09:00)
[2018-03-05] MEDS: INSULIN DETEMIR 100 UNIT/ML PEN SQ SCH (09:00)
[2018-03-05] MEDS: CLOPIDOGREL BISULFATE 75 MG TAB PO SCH (09:00)
[2018-03-05] MEDS: FUROSEMIDE 40 MG TAB PO SCH ×2 (09:00→17:00)
[2018-03-05] MEDS ORDERED: HYDROCODONE/APAP 7.5MG-325MG 1 EA TAB PO PRN (11:45)
[2018-03-05] MEDS ORDERED: HYDROMORPHONE 1MG/1ML INJ IV PRN (11:45)
--- NOTE | 2018-03-05 13:29 | Progress Note ---
DATE: March 05, 2018 CARDIOLOGY PROGRESS NOTE SUBJECTIVE: The patient was seen postop from laparoscopic cholecystectomy. She was still quite sedated but denied chest pain. OBJECTIVE VITAL SIGNS: Temperature 97.5 degrees, pulse 53, respiratory rate 17, blood pressure 113/58, oxygen saturation 97% on room air. GENERAL: Sedated after anesthesia, no acute distress. LUNGS: Clear to auscultation bilaterally. No wheezes or crackles. CARDIOVASCULAR: Normal rate, regular rhythm. No murmurs. Normal S1 and S2. ABDOMEN: Soft and nontender. EXTREMITIES: No edema. CARDIAC MEDICATIONS 1. Levothyroxine 50 mcg p.o. daily. 2. Atorvastatin 20 mg p.o. nightly. 3. Amlodipine 5 mg p.o. daily. 4. Furosemide 40 mg p.o. b.i.d. 5. Plavix 75 mg p.o. daily. 6. Carvedilol 25 mg p.o. b.i.d. 7. Aspirin 81 mg p.o. daily. LABS: WBC 7.55, hemoglobin 12, hematocrit 36.1, platelets 144. Sodium 134, potassium 4.7, chloride 94, CO2 27, BUN 37, creatinine 7. AST 63, ALT 89, alk phos 272, amylase 167, lipase 177. ECHOCARDIOGRAM: Demonstrated normal LV systolic function with EF between 55% and 60%. There was mild concentric LVH. Pseudonormal LV filling pattern consistent with elevated LA pressure. The right ventricle was not well visualized but appeared enlarged with mildly reduced systolic function. There was moderate tricuspid regurgitation. Estimated RVSP was 28 mmHg, assuming an RA pressure of 3 mmHg. IMPRESSION 1. Gallstone pancreatitis. 2. Coronary artery disease status post coronary artery bypass graft, 5 vessels, in March 2016. 3. End-stage renal disease on hemodialysis. 4. Diabetes mellitus. 5. Hypertension. 6. Hyperlipidemia. 7. Hypothyroidism. RECOMMENDATIONS: Continue current cardiac medications. We were unsuccessful in obtaining records from the patient's outpatient fagot heater helper to review her most recent cardiac evaluation. However, as the patient was asymptomatic from a cardiac standpoint, she was permitted to proceed with laparoscopic cholecystectomy. Thank you for this consult. We will continue to follow. Job#: [id number]
--- NOTE | 2018-03-05 13:36 | Operative Report ---
DATE OF PROCEDURE: March 05, 2018 PREOPERATIVE DIAGNOSIS: Cholecystitis, cholelithiasis. POSTOPERATIVE DIAGNOSIS: Cholecystitis, cholelithiasis. OPERATION PERFORMED: Laparoscopic cholecystectomy. ANESTHESIA: General. COMPLICATIONS: None. ESTIMATED BLOOD LOSS: Minimal. DESCRIPTION OF PROCEDURE: With the patient lying in bed in the supine position, under good general endotracheal anesthesia, the abdomen was prepped with Betadine solution and draped in the usual manner. A Veress needle was introduced into the umbilicus, and pneumoperitoneum was established without any difficulty. An 11-mm trocar was placed into the umbilicus, and a 10-mm video laparoscope was placed into the intraabdominal cavity. Under direct vision, three 5-mm trocars were placed in the right subcostal region. Video laparoscopy at this point revealed a gallbladder that contained multiple stones and the liver that showed some fatty infiltration. Otherwise, the rest of the abdominal exploration appeared to be within normal limits. The peritoneum overlying the neck of the gallbladder was then opened, and the cystic duct was identified. The cystic duct was followed to its junction with the common duct. Cystic duct was then circumferentially dissected away from the common duct, doubly clipped and divided. The cystic artery was similarly doubly clipped and divided. Gallbladder was then slowly and carefully taken off the liver bed using the cautery scissors, and perfect hemostasis was ascertained. The gallbladder was grasped through the umbilical port and removed without any difficulty. Video laparoscopy was then again carried out. The liver bed was found to be perfectly dry. All of the excess fluid was aspirated. The pneumoperitoneum was evacuated and all the trocars were removed under direct vision. The midline fascia at the umbilicus was then closed with a [id number] of #0 Vicryl. All layers were infiltrated on the way out with solution of 1/4 percent Marcaine. Subcutaneous tissue was approximated with 3-0 Vicryl, and the skin was closed with subcuticular 5-0 Vicryl. Benzoin, Steri-Strips and Band-Aids were applied. The sponge, lap and needle count was correct. The patient tolerated the procedure well and returned to the recovery room in stable condition. Job#: [id number]
[2018-03-05] MEDS ORDERED: CEFAZOLIN SOD 1 GM VIAL IV SCH (14:00)
[2018-03-05] MEDS ORDERED: CEFAZOLIN SOD 1 GM/NS 50ML 50 ML IV SCH (14:00)
[2018-03-05] MEDS: CEFAZOLIN SOD 1 GM VIAL IV SCH (14:45)
[2018-03-05] MEDS ORDERED: SODIUM CHLORIDE 0.9% 250ML 0 ML ONE (14:54)
[2018-03-05] MEDS: ONDANSETRON HCL INJ 2 MG/ML VIAL IV PRN (16:20)
[2018-03-05] MEDS ORDERED: EPINEPHRINE HCL INJ 1 MG/ML AMP ONE ×6 (17:48→23:38)
[2018-03-05] MEDS ORDERED: CALCIUM CHLORIDE 10% 1.36 MEQ/ML 10ML SYR IV ONE (17:48)
[2018-03-05] MEDS ORDERED: DEXTROSE 50% SYRINGE 50 ML IV ONE ×2 (17:48→19:49)
[2018-03-05] MEDS ORDERED: SODIUM BICARBONATE 8.4% INJ 50 ML SYR ONE (17:48)
[2018-03-05] MEDS ORDERED: EPINEPHRINE HCL SYRINGE ONE ×2 (17:48→22:43)
[2018-03-05] MEDS ORDERED: FENTANYL CITRATE/PF 100MCG/2 ML INJ ONE (18:02)
[2018-03-05] MEDS ORDERED: MIDAZOLAM HCL 2 MG/2 ML VIAL ONE (18:02)
[2018-03-05] MEDS ORDERED: PROMETHAZINE 12.5MG/ NACL 0.9% 12.5 MG/50 ML BAG IV PRN (18:30)
[2018-03-05 20:16] LABS: ABG HCO3 15 mmol/L (23-28); ABG PCO2 33 mmHg (41-51); ABG PH 7.27 (7.31-7.41); ABG PO2 377 mmHg (80-105)
[2018-03-05] MEDS ORDERED: SODIUM BICARBONATE 8.4% INJ 50 ML SYR IV ONE ×2 (20:17→22:15)
[2018-03-05 20:19] LABS: BASOPHILS % 0.3 % (0.0-1.0); EOSINOPHILS % 0.2 % (0.0-6.0); HEMATOCRIT 24.3 % (34.2-44.1); LYMPHOCYTES # (AUTO) 3.7 (1.0-3.2); LYMPHOCYTES % 27.7 % (18.0-39.1); MEAN CORPUSCULAR HEMOGLOBIN 30.6 pg (28-32); MEAN CORPUSCULAR HGB CONC 31.7 g/dL (31-35); MEAN CORPUSCULAR VOLUME 96.4 fL (81-99); MONOCYTES # (AUTO) 0.1 (0.2-0.8); MONOCYTES % 0.8 % (4.4-11.3); NEUTROPHILS # (AUTO) 8.2 (2.1-6.9); NEUTROPHILS % 62.1 % (38.7-80.0); PLATELET COUNT 65 x10e3/uL (140-360); RED BLOOD COUNT 2.52 x10e6/uL (3.6-5.1); RED CELL DISTRIBUTION WIDTH 14.4 % (11.7-14.4)
[2018-03-05 20:21] LABS: HEMOGLOBIN 7.7 g/dL (12.0-16.0)
[2018-03-05 20:23] LABS: INR 2.44; PROTHROMBIN TIME 24.9 seconds (11.9-14.5)
[2018-03-05 20:24] LABS: PARTIAL THROMBOPLASTIN TIME 51.2 seconds (23.8-35.5)
[2018-03-05 20:32] LABS: ALBUMIN 1.9 g/dL (3.5-5.0); ALBUMIN/GLOBULIN RATIO 0.9 (0.8-2.0); ANION GAP 34.9 mmol/L (8-16); CALCIUM 8.8 mg/dL (8.4-10.2); CREATININE, SERUM 7.34 mg/dL (0.57-1.11); POTASSIUM 5.9 mmol/L (3.5-5.1)
--- NOTE | 2018-03-05 20:44 | Diagnostic Imaging Report ---
A single frontal view of the chest. HISTORY: Status post intubation COMPARISON: Chest radiograph September 05, 2017 DISCUSSION: Portable technique, limits sensitivity of the exam. Multiple overlying monitoring leads and additional artifact. Tubes/Lines: Status post intubation, the tip of the tube projects approximately 2.3 cm above the level the lizet. Lungs and pleura: Low lung volumes result in bibasilar vascular crowding, accentuation of the pulmonary interstitial markings, central pulmonary vasculature, and the cardiac silhouette. Allowing for these limitations, the findings are as follows: No evidence of a consolidative pneumonia or pulmonary alveolar edema. No definite pleural effusion or pneumothorax is identified. Heart and mediastinum: The cardiomediastinal silhouette appears unremarkable. Bones: Multiple median sternotomy wires. IMPRESSION: Status post intubation, as detailed above. Signed by: Dr. Gerardo Mejia D.O., M.M.M. on 03/05/2018 8:40 PM
[2018-03-05 20:49] LABS: CREATINE KINASE MB 3.2 ng/mL (0-5.0)
[2018-03-05] MEDS: ATORVASTATIN 20 MG TAB PO SCH (21:00)
[2018-03-05 21:13] LABS: HYPOCHROMASIA SLIGHT; LYMPHOCYTES % (MANUAL) 18 % (19-48); MONOCYTES % (MANUAL) 7 % (3.4-9.0); NEUTROPHILS % (MANUAL) 75 % (40-74); PLATELET ESTIMATE MODERATELY DECREASED; PLATELET MORPHOLOGY COMMENT FEW LARGE; RBC MORPHOLOGY COMMENT NORMAL
[2018-03-05 21:23] LABS: ABG PH 7.38 (7.31-7.41)
[2018-03-05 21:24] LABS: ABG HCO3 15 mmol/L (23-28); ABG PCO2 26 mmHg (41-51); ABG PO2 428 mmHg (80-105)
[2018-03-05] MEDS ORDERED: SODIUM BICARBONATE 8.4% 50 ML VIAL IV STA (21:59)
--- NOTE | 2018-03-05 22:14 | Progress Note ---
DATE: March 05, 2018 PROGRESS NOTE ADDENDUM This is a 62-year-old woman who has history of end-stage renal disease, diastolic heart failure and coronary artery disease. Earlier today the patient underwent uneventful laparoscopic cholecystectomy. The surgery was performed successfully by her surgeon, namely Dr. Carson Rondon. At around 6 pm the patient began experiencing nausea that did not respond to IV Zofran. According to the nursing staff, intravenous ondansetron (Zofran) was not successful, thus I ordered dose of intravenous promethazine 12.5 mg strength. At approximately 7 p.m. tonight the patient was found to be unresponsive by family members. The nursing staff found the patient was unresponsive, pulseless and apneic. On fast food shift supervisor the patient was in asystolic rhythm. Advanced cardiac life support was started immediately. After approximately 35 minutes of full advanced cardiac life support protocol as well as 2 rounds of defibrillation, the patient regained pulse. The patient was intubated endotracheally by the emergency room physician, namely Dr. Alberto Hazel. The patient was subsequently transferred to the intensive care unit and was started on intravenous epinephrine and dopamine. A 12-lead EKG was done in the emergency room and no acute ischemic changes, particularly ST elevation or depression was appreciated. A 12-lead EKG was reviewed with cardiology, namely Dr. Rich Sanderson. The patient was found to have a potassium of 6.0 and this was after several doses of intravenous bicarbonate, calcium chloride and insulin given during the advanced cardiac life support protocol. The patient was found to have a hemoglobin of 7.7 after the code blue. Chest x-ray done after intubation showed that the ET tube was in correct position. PHYSICAL EXAMINATION GENERAL: On exam, the patient is intubated endotracheally and on ventilator AC- 16. She is unresponsive. Family members are at bedside. VITAL SIGNS: Blood pressure is 98/50 with IV epinephrine and dopamine, heart rate in the 80s. Oxygen saturation 99%. Temperature 97.3. RR 23 INTEGUMENT: Pale. HEENT: The patient has an oral endotracheal tube in place. NECK: Supple. CARDIOVASCULAR: Distant heart sounds. Regular rate and rhythm. LUNGS: No rales, rhonchi or wheezes. ABDOMEN: Soft. No ecchymosis or pooling of blood to suggest intraperitoneal or internal bleeding. EXTREMITIES: No edema or deformity. DIAGNOSES: 1. Status post cardiac arrest. 2. Hyperkalemia. 3. Metabolic acidosis. 4. Status post laparoscopic cholecystectomy. PLAN: 1. I spoke with nephrology ( Dr. Sosa) and the patient will undergo hemodialysis emergently tonight. 2. I spoke with cardiology, namely Dr. Rich Sanderson, who stated that the patient did not warrant emergent cardiac intervention. 3. Will continue intravenous epinephrine and dopamine. 4. Will order peripherally inserted central catheter to help with infusion of the vasopressin. 5. Will order blood transfusion. 6. We (Dr. Carson Rondon and I) spoke with family at length and informed them that the patient is in an extremely critical state and has an overall very guarded prognosis and she requires extreme amount of supportive care. I spent 3 hours in the care of this critical care patient. Job#: [id number] GH MTDD
[2018-03-05] MEDS ORDERED: DEXTROSE 5% 250ML 250 ML IV ONE (22:43)
[2018-03-05] MEDS ORDERED: DEXTROSE 5% IV SCH (22:50)
[2018-03-05] MEDS ORDERED: EPINEPHRINE HCL IV SCH (22:50)
[2018-03-05] MEDS ORDERED: NOREPINEPHRINE 8 MG/D5W 250 ML 250 ML ONE (23:10)
[2018-03-05] MEDS ORDERED: EPINEPHRINE HCL IV PRN (23:15)
[2018-03-05] MEDS ORDERED: DEXTROSE 5% IV PRN (23:15)
[2018-03-05] MEDS: NOREPINEPHRINE INJ 4MG/4ML 8 MG in DEXTROSE 5% 250ML 242 ML IV SCH (23:30)
[2018-03-06] VITALS (137 sets, daily range): BP systolic 91–163; BP diastolic 49–129
[2018-03-06] MEDS ORDERED: DEXTROSE 5% IV PRN (01:30)
[2018-03-06] MEDS ORDERED: EPINEPHRINE HCL IV PRN (01:30)
[2018-03-06] MEDS: CEFEPIME HCL 1 GM VIAL IV SCH ×2 (01:48→12:28)
[2018-03-06] MEDS: CEFAZOLIN SOD 1 GM VIAL IV SCH (01:48)
[2018-03-06] MEDS ORDERED: CEFAZOLIN SOD 1 GM VIAL ONE (01:53)
[2018-03-06] MEDS: LORAZEPAM INJ 2 MG/ML VIAL IV PRN ×2 (02:37→22:35)
--- NOTE | 2018-03-06 03:12 | Diagnostic Imaging Report ---
EXAMINATION: Head CT HISTORY: Altered mental status COMPARISON: None. TECHNIQUE: Multidetector axial images were obtained without contrast from the foramen magnum to the vertex . The images were reconstructed using brain and bone algorithms. Thin section brain images were reformatted into coronal and sagittal planes. Intravenous contrast: None. Motion/streaking artifact limits the evaluation of the skull base and posterior cranial fossa. FINDINGS: Parenchyma: 1. No abnormal densities. 2. No mass or hemorrhage. No CT evidence of acute territorial vascular insult. Extra-axial spaces:No abnormal density. No extra-axial fluid collections Brain volume: Normal for age. Ventricles: No hydrocephalus or displacement. Arteries: No density suggestive of thrombus. Dural sinuses: No abnormal density. Extra-axial spaces: No abnormal density. Foramen magnum: No mass, Chiari malformation, or basilar invagination. Sella: No obvious mass. Paranasal/mastoid sinuses: Hypo pneumatization processes with partial opacification of the mastoid air cells, which may be related to effusion or chronic inflammatory process. Otherwise clear Skull/Scalp: No lytic or blastic lesions. No fractures. IMPRESSION: No intracranial abnormalities. Partial opacification of the mastoid air cells. Signed by: Dr. Maria Elena Tracey M.D. on 03/06/2018 3:08 AM
[2018-03-06] MEDS ORDERED: METRONIDAZOLE 500MG/NS 100ML 100 ML IV ONE (04:09)
[2018-03-06] MEDS: METRONIDAZOLE 250MG/NS 50ML 50 ML IV SCH ×3 (04:30→22:18)
[2018-03-06 04:38] LABS: BASOPHILS # (AUTO) 0.1 (0.0-0.1); BASOPHILS % 0.2 % (0.0-1.0); HEMATOCRIT 34.2 % (34.2-44.1); HEMOGLOBIN 11.7 g/dL (12.0-16.0); LYMPHOCYTES # (AUTO) 1.4 (1.0-3.2); LYMPHOCYTES % 6.7 % (18.0-39.1); MEAN CORPUSCULAR HEMOGLOBIN 29.8 pg (28-32); MEAN CORPUSCULAR HGB CONC 34.2 g/dL (31-35); MONOCYTES # (AUTO) 0.9 (0.2-0.8); MONOCYTES % 4.4 % (4.4-11.3); NEUTROPHILS % 86.5 % (38.7-80.0); PLATELET COUNT 127 x10e3/uL (140-360); RED BLOOD COUNT 3.93 x10e6/uL (3.6-5.1); RED CELL DISTRIBUTION WIDTH 14.4 % (11.7-14.4)
[2018-03-06 04:55] LABS: ALANINE AMINOTRANSFERASE 3218 IU/L (0-55); ALBUMIN 2.7 g/dL (3.5-5.0); ALBUMIN/GLOBULIN RATIO 0.9 (0.8-2.0); ALKALINE PHOSPHATASE 288 IU/L (40-150); ANION GAP 39.5 mmol/L (8-16); BLOOD UREA NITROGEN 32 mg/dL (7-26); BUN/CREATININE RATIO 6 (6-25); CALCIUM 8.1 mg/dL (8.4-10.2); CARBON DIOXIDE 13 mmol/L (22-29); CHLORIDE 91 mmol/L (98-107); EST GLOMERULAR FILTRATION RATE 8 ML/MIN (60-); GLUCOSE 243 mg/dL (74-118); POTASSIUM 4.5 mmol/L (3.5-5.1); SODIUM 139 mmol/L (136-145)
[2018-03-06 05:18] LABS: CREATINE KINASE MB 60.8 ng/mL (0-5.0)
[2018-03-06 05:28] LABS: MAGNESIUM 1.6 MG/DL (1.3-2.1); PHOSPHORUS 6.6 MG/DL (2.3-4.7)
[2018-03-06] MEDS: LEVOTHYROXINE SODIUM 50 MCG TAB PO SCH (05:48)
[2018-03-06 06:09] LABS: RBC MORPHOLOGY COMMENT NORMAL
[2018-03-06] MEDS ORDERED: DEXTROSE 5% IV ONE ×2 (06:15→07:00)
[2018-03-06] MEDS ORDERED: SODIUM BICARBONATE 8.4% IV ONE ×2 (06:15→07:00)
[2018-03-06 06:23] LABS: AMYLASE 335 U/L (25-125); LIPASE 136 U/L (8-78)
--- NOTE | 2018-03-06 06:54 | Diagnostic Imaging Report ---
EXAMINATION: CHEST SINGLE (PORTABLE) INDICATION: Intubated COMPARISON: 03/05/2018 FINDINGS: TUBES and LINES: Endotracheal tube is in good position 3 cm above the lizet. Left upper extremity PICC line appears to overlie the axillary region in suboptimal position LUNGS: Lungs are not well inflated. There are bibasilar atelectasis. There is mild prominence of the central pulmonary vasculature, consistent with pulmonary venous congestion. PLEURA: No pleural effusion or pneumothorax. HEART AND MEDIASTINUM: The cardiomediastinal silhouette is unremarkable. There are atherosclerotic calcifications within the aorta. Patient is status post CABG. BONES AND SOFT TISSUES: No acute osseous lesion. Soft tissues are unremarkable. UPPER ABDOMEN: No free air under the diaphragm. IMPRESSION: 1. Low lung volumes and bilateral atelectasis. 2. Endotracheal tube in good position. 3. Left upper extremity PICC line with tip overlying the axillary region. Repositioning recommended Signed by: Dr. Fran Yates M.D. on 03/06/2018 6:51 AM
[2018-03-06] MEDS: GLIPIZIDE 5 MG TAB PO SCH ×2 (09:00→16:30)
[2018-03-06] MEDS: AMLODIPINE BESYLATE 5 MG TAB PO SCH (09:00)
[2018-03-06] MEDS: CLOPIDOGREL BISULFATE 75 MG TAB PO SCH (09:00)
[2018-03-06] MEDS: INSULIN DETEMIR 100 UNIT/ML PEN SQ SCH (09:00)
[2018-03-06] MEDS: PANTOPRAZOLE SOD 40 MG TABEC PO SCH (09:00)
[2018-03-06] MEDS: ASPIRIN 81 MG CHEW TAB PO SCH (09:00)
[2018-03-06] MEDS: CARVEDILOL 12.5 MG TAB PO SCH ×2 (09:00→17:00)
[2018-03-06] MEDS: FUROSEMIDE 40 MG TAB PO SCH ×2 (09:00→17:00)
--- NOTE | 2018-03-06 09:13 | Diagnostic Imaging Report ---
ADDENDUM #1 Typographical error in the report: Soft tissues: Expected soft tissue sequela of left breast reports. Otherwise, normal Should read: Soft tissues: Expected soft tissue sequela of laparoscopy ports. Otherwise, normal Signed by: Dr. Adis Lee M.D. on 03/06/2018 9:15 AM ADDENDUM #[address] Christopher at 9:20 AM March 06, 2018. Signed by: Dr. Adis Lee M.D. on 03/06/2018 9:[address] scan abdomen and pelvis. 03/06/2018 Clinical history: Abdominal pain and vomiting status post cholecystectomy; "elevated labs " Technique: Routine volumetric CT abdomen and pelvis. No intravenous contrast was administered. No enteric contrast was administered. Coronal, sagittal and axial images generated from source data. Dose: 501.01 mGy-cm Comparison: None Findings: Bibasilar subsegmental atelectasis. No pleural effusions. Normal heart size. Postoperative sequela sternotomy. Severe redding coronary artery calcification. Liver: Normal Gallbladder: Cholecystectomy. No bile duct dilation. Pancreas: Normal Spleen: Normal Adrenal glands: Normal Kidneys: Bilateral multifocal vascular calcification. No definite stones. Normal ureters. Wedge shaped defect at the right mid kidney consistent with sequela of remote infarct or infection. Urinary bladder: Decompressed by Tovar catheter. Uterus and adnexa: Normal for age Bowel: Normal caliber. Gas-filled stomach and proximal duodenum. Decompressed colon. Peritoneum: Small volume ascites about the spleen. High attenuation fluid in the pelvis (61 Hounsfield units). No focally loculated fluid. Vasculature: Normal caliber. Moderate diffuse atherosclerosis. Diffuse arteriosclerosis. Lymph nodes: Normal Skeleton: Intact. Soft tissues: Expected soft tissue sequela of left breast reports. Otherwise, normal Impression: 1. Dense fluid within the abdomen most in keeping with hemoperitoneum. There is no definitive conspicuous focal source of hemorrhage. 2. Study sensitivity and specificity is limited by the lack of intravenous contrast. This report was generated with voice-recognition technology. Errors in custom dressmaker can occur. Please interpret accordingly and contact a radiologist if there are any questions regarding the report. Signed by: Dr. Adis Lee M.D. on 03/06/2018 9:09 AM
--- NOTE | 2018-03-06 09:50 | Diagnostic Imaging Report ---
PROCEDURE:ABDOMEN-1VIEW (KUB) TECHNIQUE:Supine AP abdomen INDICATION:NG tube placement COMPARISON:None. FINDINGS: See conclusion. CONCLUSION: 1. Nasogastric tube tip just beyond the gastroesophageal junction. Consider advancement 10-15 cm. 2. Normal bowel gas pattern. Study limited by motion artifact. Dictated by: Adis Lee M.D. on 03/06/2018 at 9:51 Electronically approved by: Adis Lee M.D. on 03/06/2018 at 9:51
--- NOTE | 2018-03-06 11:29 | Consultation ---
DATE OF CONSULTATION: March 06, 2018 PULMONARY CRITICAL CARE CONSULTATION REASON FOR CONSULTATION: ICU management. CONSULTING PHYSICIAN: Dr. Jarrell Christopher. CHIEF COMPLAINT: Patient was admitted initially by Dr. Christopher the 03 of March with the complaint of abdominal pain, found to have abnormal liver function test. HPI: Ms. Griffiths is a 62-year-old female. She had right upper quadrant pain, was diagnosed with cholecystitis, gallstone pancreatitis. She has history of end-stage renal disease and she has type 2 diabetes, history of CABG, and coronary artery disease. General surgery was consulted. Dr. Rondon performed laparoscopic cholecystectomy. Patient was on the floor last night and per Dr. Christopher's note, at 6 p.m., she became experiencing nausea, did not respond to Zofran. Promethazine was given and approximately 7 p.m., the patient was found to be unresponsive. The nursing staff found the patient unresponsive, pulseless, apneic and 35 minutes of ACLS was done, 2 rounds of defibrillation, and she regained pulse. Patient was intubated by Dr. Hazel and was transferred to ICU. Dr. Sanderson was consulted. Patient was found to have potassium of 6.0. Bicarbonate was given and patient underwent emergent hemodialysis last night. Her AST, ALT, and bilirubin along with her cardiac enzymes have been high. Currently, patient is on a ventilator, she is off pressors, and she is not responsive to deep sternal rub. REVIEW OF SYSTEMS: Unable to elicit any as patient is intubated and unresponsive. PAST MEDICAL HISTORY: As in HPI. Diabetes, hypertension, coronary artery disease, end-stage renal disease, hypertensive heart disease, and hypothyroidism. PAST SURGICAL HISTORY: CABG in 2016, right upper extremity AV fistula placement, right upper extremity AV graft placement, left carpal tunnel surgery, right knee surgery. FAMILY AND SOCIAL HISTORY: She is , lives with her . She is currently disabled. Does not have any history of smoking. PHYSICAL EXAMINATION: VITAL SIGNS: Temperature 98.8, pulse of 70, blood pressure is 115/60. She is on FiO2 of 60% and PEEP of 0 with rate of 16. HEENT: Head atraumatic, normocephalic. Pupils are nonreactive. CHEST: Clear to auscultation bilaterally. HEART: S1 and S2 audible. ABDOMEN: Soft, nontender, nondistended. EXTREMITIES: No clubbing, cyanosis, or edema. Warm extremities. NEUROLOGIC: On deep sternal rub, she has no response. She is not on any sedation. LABORATORY DATA: Sodium 139, potassium 4.5, bicarb is 13, BUN 32, creatinine 5.4. AST and ALT 3218 and 4200. Cardiac enzymes, CK-MB 60.80. White count of 20,000, hemoglobin 11.7, platelets 127. Blood gas last night was 7.38, pCO2 of 26, pO2 of 428, this was probably done with 100%. Chest x-ray done this morning is reported as bibasilar atelectasis. Chest x-ray done this morning is not showing any focal infiltrate, increased congestion likely because of fluid resuscitation. She had a CT abdomen and pelvis done, which is showing evidence of dense fluid within the abdomen, no definite conspicuous focal source of hemorrhage. ASSESSMENT/PLAN: Ms. Griffiths is a 62-year-old female who had a laparoscopic cholecystectomy and postoperatively, she had a cardiac arrest. Patient is currently intubated, off sedation, not responsive. She is off pressors. CURRENT PROBLEMS 1. Cardiac arrest, history of coronary artery disease. 2. End-stage renal disease, on hemodialysis. 3. Status post cholecystectomy for cholecystitis. 4. History of diabetes mellitus. 5. Acute hyperkalemia and metabolic acidosis. 6. Acute respiratory failure. PLAN 1. I have changed the ventilator setting to FiO2 of 50%, PEEP of 5, and continue the rate at 16. I will check an ABG. 2. IV antibiotics will be continued per the primary team recommendations. Patient is on IV Flagyl and cefepime. 3. Vasopressors as needed, currently off vasopressors. 4. On hemodialysis per nephrology recommendation, currently receiving bicarbonate drip. Cardiology is also on the case. We will follow their recommendations. Critical care time spent 50 minutes. Discussed with patient's family member at bedside in detail. Job#: [id number] RADU
[2018-03-06] MEDS: SODIUM CHLORIDE 0.9% 250ML IRRIG IR SCH ×4 (12:28→20:00)
[2018-03-06] MEDS ORDERED: EPOETIN ALFA 10000 UNIT/ML VIAL SC NR (12:45)
--- NOTE | 2018-03-06 13:01 | Diagnostic Imaging Report ---
Non-tunneled Central Venous Catheter Placement 03/06/2018 Pre-Procedure Diagnosis: Multiorgan failure Post-procedure Diagnosis:Multiorgan failure Resident Assistant Cna: Marta Lee Analysis Evaluator: None Sedation: None. 1% lidocaine local anesthesia. Estimate blood loss: <5 mL Blood administered: None Complications: None Implants/Grafts: 16 cm 7-Danish 3 lumen CVC Specimen: None Procedure: Informed consent was obtained and the patient positioned supine in the ICU. A timeout was performed, followed by preliminary ultrasound of the right internal jugular vein (see findings below). The right neck was prepped and draped in standard fashion. Using real-time ultrasound guidance a 18 gauge vascular needle was used to access the right internal jugular vein. An image was stored in the electronic medical record. A wire was advanced while monitoring the patient's cardiac rhythm and the needle exchanged for a non-tunneled central venous catheter using standard Salinger technique. At the end of the procedure the catheter was flushed, secured to the skin and a sterile dressing applied. The patient tolerated the procedure well and without immediate complication. Findings: Patent right internal jugular vein as demonstrated by normal ultrasound compressibility. Impression: Successful placement of a non-tunneled right internal jugular central venous catheter using ultrasound guidance. This report was generated with voice-recognition technology. Errors in gas appliance installer can occur. Please interpret accordingly and contact a radiologist if there are any questions regarding the report. Signed by: Dr. Adis Lee M.D. on 03/06/2018 12:57 PM
--- NOTE | 2018-03-06 13:01 | Diagnostic Imaging Report ---
Non-tunneled Central Venous Catheter Placement 03/06/2018 Pre-Procedure Diagnosis: Multiorgan failure Post-procedure Diagnosis:Multiorgan failure Patient Centered Care Specialist: Marta Lee Non Profit Director: None Sedation: None. 1% lidocaine local anesthesia. Estimate blood loss: <5 mL Blood administered: None Complications: None Implants/Grafts: 16 cm 7-Chinese 3 lumen CVC Specimen: None Procedure: Informed consent was obtained and the patient positioned supine in the ICU. A timeout was performed, followed by preliminary ultrasound of the right internal jugular vein (see findings below). The right neck was prepped and draped in standard fashion. Using real-time ultrasound guidance a 18 gauge vascular needle was used to access the right internal jugular vein. An image was stored in the electronic medical record. A wire was advanced while monitoring the patient's cardiac rhythm and the needle exchanged for a non-tunneled central venous catheter using standard Salinger technique. At the end of the procedure the catheter was flushed, secured to the skin and a sterile dressing applied. The patient tolerated the procedure well and without immediate complication. Findings: Patent right internal jugular vein as demonstrated by normal ultrasound compressibility. Impression: Successful placement of a non-tunneled right internal jugular central venous catheter using ultrasound guidance. This report was generated with voice-recognition technology. Errors in supervisor broadloom can occur. Please interpret accordingly and contact a radiologist if there are any questions regarding the report. Signed by: Dr. Adis Lee M.D. on 03/06/2018 12:57 PM
--- NOTE | 2018-03-06 13:01 | Diagnostic Imaging Report ---
Non-tunneled Central Venous Catheter Placement 03/06/2018 Pre-Procedure Diagnosis: Multiorgan failure Post-procedure Diagnosis:Multiorgan failure Sales Representative Education Courses: Marta Lee Land Development Project Manager: None Sedation: None. 1% lidocaine local anesthesia. Estimate blood loss: <5 mL Blood administered: None Complications: None Implants/Grafts: 16 cm 7-Yi 3 lumen CVC Specimen: None Procedure: Informed consent was obtained and the patient positioned supine in the ICU. A timeout was performed, followed by preliminary ultrasound of the right internal jugular vein (see findings below). The right neck was prepped and draped in standard fashion. Using real-time ultrasound guidance a 18 gauge vascular needle was used to access the right internal jugular vein. An image was stored in the electronic medical record. A wire was advanced while monitoring the patient's cardiac rhythm and the needle exchanged for a non-tunneled central venous catheter using standard Salinger technique. At the end of the procedure the catheter was flushed, secured to the skin and a sterile dressing applied. The patient tolerated the procedure well and without immediate complication. Findings: Patent right internal jugular vein as demonstrated by normal ultrasound compressibility. Impression: Successful placement of a non-tunneled right internal jugular central venous catheter using ultrasound guidance. This report was generated with voice-recognition technology. Errors in wafer slicer can occur. Please interpret accordingly and contact a radiologist if there are any questions regarding the report. Signed by: Dr. Adis Lee M.D. on 03/06/2018 12:57 PM
--- NOTE | 2018-03-06 13:02 | Diagnostic Imaging Report ---
PROCEDURE:CHEST XRAY LINE PLACEMENT TECHNIQUE:Portable AP chest INDICATION:Line placement COMPARISON:None. FINDINGS: See conclusion. CONCLUSION: 1. Right internal jugular central venous catheter tip at the atrial caval junction. 2. Nasogastric tube tip in the gastric body. 3. Endotracheal tube tip about 3 cm from the lizet. 4. Clear lungs. No effusions. 5. Normal heart size and central vasculature. Postoperative sequela of sternotomy. Dictated by: Adis Lee M.D. on 03/06/2018 at 13:03 Electronically approved by: Adis Lee M.D. on 03/06/2018 at 13:03
[2018-03-06 13:23] LABS: BASOPHILS % 0.1 % (0.0-1.0); HEMATOCRIT 29.5 % (34.2-44.1); HEMOGLOBIN 10.5 g/dL (12.0-16.0); LYMPHOCYTES # (AUTO) 1.9 (1.0-3.2); LYMPHOCYTES % 13.2 % (18.0-39.1); MEAN CORPUSCULAR HEMOGLOBIN 29.8 pg (28-32); MEAN CORPUSCULAR HGB CONC 35.6 g/dL (31-35); MEAN CORPUSCULAR VOLUME 83.8 fL (81-99); MONOCYTES # (AUTO) 0.4 (0.2-0.8); MONOCYTES % 2.9 % (4.4-11.3); NEUTROPHILS # (AUTO) 11.8 (2.1-6.9); NEUTROPHILS % 82.8 % (38.7-80.0); PLATELET COUNT 128 x10e3/uL (140-360); RED BLOOD COUNT 3.52 x10e6/uL (3.6-5.1)
[2018-03-06 13:43] LABS: ANION GAP 23.3 mmol/L (8-16); CALCIUM 7.5 mg/dL (8.4-10.2); CREATININE, SERUM 6.19 mg/dL (0.57-1.11); POTASSIUM 4.3 mmol/L (3.5-5.1)
[2018-03-06 13:51] LABS: CREATINE KINASE MB 25.6 ng/mL (0-5.0)
[2018-03-06 14:14] LABS: ABG PCO2 25 mmHg (41-51); ABG PH 7.66 (7.31-7.41); ABG PO2 141 mmHg (80-105)
[2018-03-06 14:15] LABS: ABG HCO3 28 mmol/L (23-28)
[2018-03-06] MEDS: ATORVASTATIN 20 MG TAB PO SCH (21:00)
[2018-03-06 22:49] LABS: BASOPHILS % 0.1 % (0.0-1.0); HEMATOCRIT 28.8 % (34.2-44.1); HEMOGLOBIN 9.9 g/dL (12.0-16.0); LYMPHOCYTES # (AUTO) 2.4 (1.0-3.2); LYMPHOCYTES % 13.3 % (18.0-39.1); MEAN CORPUSCULAR HEMOGLOBIN 29.9 pg (28-32); MEAN CORPUSCULAR HGB CONC 34.4 g/dL (31-35); MONOCYTES # (AUTO) 0.7 (0.2-0.8); MONOCYTES % 4.1 % (4.4-11.3); NEUTROPHILS # (AUTO) 14.6 (2.1-6.9); NEUTROPHILS % 81.5 % (38.7-80.0); PLATELET COUNT 134 x10e3/uL (140-360); RED BLOOD COUNT 3.31 x10e6/uL (3.6-5.1); RED CELL DISTRIBUTION WIDTH 15.3 % (11.7-14.4)
--- NOTE | 2018-03-06 23:01 | Progress Note ---
DATE: March 06, 2018 CARDIOLOGY PROGRESS NOTE SUBJECTIVE: Patient was found to be unresponsive yesterday evening. On evaluation by nursing staff, patient was pulseless and apneic. Code blue was called. Initial rhythm was PEA. ACLS was provided for approximately 35 minutes with defibrillation times 2. The patient was subsequently intubated and transferred to the ICU. She remains intubated and is not responsive, off sedation. Patient underwent emergent hemodialysis overnight for metabolic clearance. In addition, patient was transfused 2 units of PRBCs due to drop in H and H on repeat labs. OBJECTIVE VITAL SIGNS: Temperature 101.1 degrees, pulse 77, respiratory rate 14, blood pressure 124/56, oxygen saturation 100% on mechanical ventilation. GENERAL: Intubated, not responsive, on no sedation. No acute distress. LUNGS: Clear to auscultation bilaterally. No wheezes or crackles. CARDIOVASCULAR: Normal rate, regular rhythm. No murmurs. Normal S1, S2. ABDOMEN: Soft, nontender. EXTREMITIES: No edema. CARDIAC MEDICATIONS 1. Aspirin 81 mg p.o. daily. 2. Atorvastatin 20 mg p.o. nightly. 3. Carvedilol 25 mg p.o. b.i.d. 4. Plavix 75 mg p.o. daily. 5. Lasix 40 mg p.o. b.i.d. 6. Levothyroxine 50 mcg p.o. daily. 7. Amlodipine 5 mg p.o. daily. LABS: WBC 14.27, hemoglobin 10.5, hematocrit 29.5, platelets 128,000. Sodium 140, potassium 4.3, chloride 88, CO2 33, BUN 46, creatinine 6.19. Troponin-I 5.04. Amylase 335, lipase 136. CK 6486, CK-MB 25.6. TELEMETRY: Normal sinus rhythm. IMPRESSIONS 1. Status post pulseless electrical activity arrest. 2. Gallstone pancreatitis, status post laparoscopic cholecystectomy. 3. Hemoperitoneum suggested by computed tomography of abdomen and pelvis. 4. Coronary artery disease, status post 5-vessel coronary artery bypass graft in March 2016. 5. End-stage renal disease, on hemodialysis. 6. Diabetes mellitus. 7. Hypertension. 8. Hyperlipidemia. 9. Hypothyroidism. 10. Mild right ventricular systolic dysfunction. 11. Acute anemia. 12. Elevated troponin, likely demand ischemia due to cardiac arrest. 13. Elevated liver function tests, suspect shocked liver. 14. Elevated B-type natriuretic peptide. 15. Metabolic acidosis. 16. Acute respiratory failure requiring mechanical ventilation. RECOMMENDATIONS: Trend cardiac enzymes until downtrending. No antiplatelets or anticoagulants given acute anemia. Given recent pressor requirement, no beta-blockers can be used. No statins at this time due to elevated LFTs, which are likely shocked liver. The elevated cardiac enzymes are likely secondary to demand ischemia in the setting of cardiac arrest. conservative medical therapy is recommended. Watch volume status closely. Given right ventricular dysfunction, patient will not tolerate significant hypervolemia. However, given the anemia, support with blood products and fluids as necessary. IV antibiotics per primary service. Ventilator management per pulmonary. The patient's prognosis is guarded. Thank you for this consult. We will continue to follow. Job#: [id number] [id number]
[2018-03-06 23:02] LABS: ANION GAP 23.6 mmol/L (8-16); CALCIUM 8.4 mg/dL (8.4-10.2); CREATININE, SERUM 3.69 mg/dL (0.57-1.11); POTASSIUM 4.6 mmol/L (3.5-5.1)
[2018-03-06] MEDS: NOREPINEPHRINE INJ 4MG/4ML 8 MG in DEXTROSE 5% 250ML 242 ML IV SCH (23:15)
[2018-03-07] VITALS (78 sets, daily range): BP systolic 98–255; BP diastolic 54–244
[2018-03-07] MEDS: SODIUM CHLORIDE 0.9% 250ML IRRIG IR SCH ×7 (01:28→23:58)
[2018-03-07 04:51] LABS: BASOPHILS % 0.1 % (0.0-1.0); HEMATOCRIT 28.3 % (34.2-44.1); HEMOGLOBIN 9.6 g/dL (12.0-16.0); LYMPHOCYTES # (AUTO) 2.4 (1.0-3.2); LYMPHOCYTES % 13.3 % (18.0-39.1); MEAN CORPUSCULAR HEMOGLOBIN 29.9 pg (28-32); MEAN CORPUSCULAR HGB CONC 33.9 g/dL (31-35); MEAN CORPUSCULAR VOLUME 88.2 fL (81-99); MONOCYTES # (AUTO) 0.9 (0.2-0.8); MONOCYTES % 4.8 % (4.4-11.3); NEUTROPHILS # (AUTO) 14.8 (2.1-6.9); NEUTROPHILS % 80.9 % (38.7-80.0); PLATELET COUNT 141 x10e3/uL (140-360); RED BLOOD COUNT 3.21 x10e6/uL (3.6-5.1); RED CELL DISTRIBUTION WIDTH 15.6 % (11.7-14.4)
[2018-03-07 05:00] LABS: INR 1.69; PROTHROMBIN TIME 18.7 seconds (11.9-14.5)
[2018-03-07 05:10] LABS: ALANINE AMINOTRANSFERASE 785 IU/L (0-55); ALBUMIN 3.1 g/dL (3.5-5.0); ALKALINE PHOSPHATASE 258 IU/L (40-150); AMYLASE 261 U/L (25-125); ANION GAP 23.3 mmol/L (8-16); BLOOD UREA NITROGEN 38 mg/dL (7-26); BUN/CREATININE RATIO 8 (6-25); CALCIUM 8.2 mg/dL (8.4-10.2); CARBON DIOXIDE 30 mmol/L (22-29); CHLORIDE 94 mmol/L (98-107); CREATININE, SERUM 4.48 mg/dL (0.57-1.11); EST GLOMERULAR FILTRATION RATE 10 ML/MIN (60-); GLUCOSE 210 mg/dL (74-118); LIPASE 96 U/L (8-78); POTASSIUM 4.3 mmol/L (3.5-5.1); SODIUM 143 mmol/L (136-145)
[2018-03-07] MEDS: LORAZEPAM INJ 2 MG/ML VIAL IV PRN ×2 (05:10→15:20)
[2018-03-07] MEDS ORDERED: VANCOMYCIN 1GM/NS 250 ML 250 ML IV ONE (06:15)
--- NOTE | 2018-03-07 06:51 | Diagnostic Imaging Report ---
EXAMINATION: CHEST SINGLE (PORTABLE) INDICATION: Intubated on ventilator. COMPARISON: 03/06/2018 FINDINGS: TUBES and LINES: Endotracheal, NG tube and new right IJ central line catheter are in good position. LUNGS: Lungs are well inflated. Lungs are clear. There is mild prominence of the central pulmonary vasculature, consistent with pulmonary venous congestion. PLEURA: No pleural effusion or pneumothorax. HEART AND MEDIASTINUM: The cardiomediastinal silhouette is unremarkable. There are atherosclerotic calcifications within the aorta. BONES AND SOFT TISSUES: No acute osseous lesion. Soft tissues are unremarkable. UPPER ABDOMEN: No free air under the diaphragm. IMPRESSION: 1. No acute thoracic abnormality. 2. Tubes and lines are in good position. Signed by: Dr. Fran Yates M.D. on 03/07/2018 6:47 AM
[2018-03-07] MEDS: METRONIDAZOLE 250MG/NS 50ML 50 ML IV SCH ×3 (08:18→22:42)
[2018-03-07] MEDS: LEVOTHYROXINE SODIUM 50 MCG TAB PO SCH (08:18)
[2018-03-07] MEDS: ASPIRIN 81 MG CHEW TAB PO SCH (08:28)
[2018-03-07] MEDS: GLIPIZIDE 5 MG TAB PO SCH ×2 (08:28→18:00)
[2018-03-07] MEDS: CEFEPIME HCL 1 GM VIAL IV SCH (08:28)
[2018-03-07] MEDS: FUROSEMIDE 40 MG TAB PO SCH ×2 (08:29→17:00)
[2018-03-07] MEDS: INSULIN DETEMIR 100 UNIT/ML PEN SQ SCH ×2 (08:29→09:00)
[2018-03-07] MEDS: CARVEDILOL 12.5 MG TAB PO SCH ×3 (08:29→22:46)
[2018-03-07] MEDS: AMLODIPINE BESYLATE 5 MG TAB PO SCH (08:29)
[2018-03-07] MEDS: CLOPIDOGREL BISULFATE 75 MG TAB PO SCH ×2 (08:29→12:43)
[2018-03-07] MEDS ORDERED: DEXTROSE 50% SYRINGE 50 ML IV PRN (11:45)
[2018-03-07] MEDS ORDERED: MANNITOL 25% 12.5GM/50 ML VIAL IV PRN (12:00)
[2018-03-07] MEDS ORDERED: SODIUM CHLORIDE 0.9% 1000ML 2,000 ML IV PRN (12:00)
[2018-03-07] MEDS ORDERED: SODIUM CHLORIDE 0.9% 250ML 500 ML IV PRN (12:00)
[2018-03-07] MEDS ORDERED: ALBUMIN 25% 12.5GM 0.25 GM/ML BTL IV PRN (12:00)
--- NOTE | 2018-03-07 13:50 | Progress Note ---
DATE: March 07, 2018 CARDIOLOGY PROGRESS NOTE SUBJECTIVE: Patient is unable to report, intubated. CARDIOVASCULAR MEDICATIONS 1. Amlodipine 5 mg p.o. daily. 2. Coreg 25 mg p.o. b.i.d. 3. Furosemide 40 p.o. b.i.d. 4. Aspirin 81 p.o. daily. 5. Plavix 75 p.o. daily. 6. Atorvastatin 20 p.o. h.s. LABS: WBC 18.28, hemoglobin 9.6, hematocrit 28.3, platelets 141. Sodium 143, potassium 4.3, BUN 38, creatinine 4.48, calcium 8.2. AST greater than 4202, ALT 782, alkaline phosphatase 258. BNP 906.9 and troponin 3.014. Chest x-ray with no acute thoracic abnormalities. OBJECTIVE VITAL SIGNS: Temperature 99.5, pulse 79, respiratory rate not recorded, blood pressure 142/75. GENERAL: Intubated, not responsive; however, moving eyelids slightly. LUNGS: Diminished anterior lower lobes. CARDIOVASCULAR: Normal rate and rhythm. No murmurs. Normal S1, S2. ABDOMEN: Soft and nontender. LOWER EXTREMITIES: No edema. IMPRESSION 1. Status post pulseless electrical activity arrest. 2. Gallstone pancreatitis, status post laparoscopic cholecystectomy. 1. Hemoperitoneum suggested by CT of the abdomen and pelvis. 2. Coronary artery disease, status post 5-vessel coronary artery bypass in 2016. 3. End-stage renal disease, on hemodialysis. 4. Diabetes mellitus. 5. Hypertension. 6. Hyperlipidemia. 7. Hypothyroidism. 8. Mild right ventricular systolic dysfunction. 9. Acute anemia. 10. Elevated troponin, likely demand ischemia due to cardiac arrest. 11. Elevated liver function tests, suspect shocked liver. 12. Metabolic acidosis. 13. Acute respiratory failure, requiring mechanical ventilation. RECOMMENDATIONS: Cardiac enzymes trending down. Hemoglobin noted to be stable. Continue antiplatelet therapy at this time. No anticoagulation. Given recent pressor requirement, not on a beta-newton. No statins at this time due to elevated liver function test. We will watch volume status closely. Given right ventricular dysfunction, patient will not tolerate significant hypervolemia; however, given the anemia, support with blood products and fluids as necessary. Continue IV antibiotics per primary service. Ventilator support per pulmonary. Guarded prognosis for this patient. DICTATED BY: Ana Ramirez NP Job#: [id number] VAS
[2018-03-07] MEDS ORDERED: LORAZEPAM INJ 2 MG/ML VIAL ONE ×2 (15:08→15:09)
--- NOTE | 2018-03-07 16:04 | Diagnostic Imaging Report ---
History: Status post arrest yesterday Comparison studies: CT head 03/06/18 Technique: Sagittal T2; axial DWI, FLAIR, MPGR, T1, Coronal FLAIR. Intravenous contrast: None Findings: Scalp: Normal in signal . No masses . Bone marrow: Normal in signal intensity. Extra-axial: No masses, no fluid collections. Brain sulci: Appropriate for age. Ventricles: Normal in size . No hydrocephalus . Parenchyma: Punctate focus of restricted diffusion in the left cerebellar hemisphere. Subtle restricted diffusion in the left more than right parietal cortex No masses or hemorrhage. Suprasellar region: No abnormalities. Craniocervical junction: No abnormalities. Patent foramen magnum. No Chiari one malformation. Vessels: Normal flow-voids in the arteries and sinuses. Fluid in the bilateral mastoid air cells. Mucosal thickening at the bilateral maxillary sinuses. IMPRESSION: 1. lacunar infarct in the left cerebellar hemisphere. Subtle restricted diffusion and FLAIR hyperintensity in the bilateral parietal cortex related to hypoxic injury/ischemia with the patient clinical history. The above finding was reported and acknowledged by RN. Wendy Barrett at 4:00pm 03/07/18 Signed by: DR Les Arnett M.D. on 03/07/2018 5:27 PM
[2018-03-07 16:21] LABS: ABG HCO3 30 mmol/L (23-28); ABG PCO2 35 mmHg (41-51); ABG PH 7.54 (7.31-7.41); ABG PO2 104 mmHg (80-105)
[2018-03-07] MEDS: INSULIN LISPRO 100 UNIT/1 ML 3ML VIAL SQ SCH (18:39)
--- NOTE | 2018-03-07 19:35 | Consultation ---
DATE OF CONSULTATION: March 07, 2018 NEUROLOGY CONSULTATION HISTORY OF PRESENT ILLNESS: Ms. Griffiths is a 62-year-old woman with past medical history significant for hypertension, hyperlipidemia, diabetes mellitus, coronary artery disease status post 5-vessel CABG, thyroid disease, and end-stage renal disease on hemodialysis, admitted to [facility] on March 03, 2018 with gallstone pancreatitis. On March 05, 2018, the patient went into cardiac arrest. She was revived after approximately 35 minutes, then transferred to the intensive care unit where she has remained comatose. Neurology consultation is requested to evaluate for anoxic ischemic brain injury. As stated above, the patient presented to the emergency center at [facility] on March 03, 2018 with mid-epigastric and right upper quadrant abdominal pain, nausea, and vomiting. While in the emergency center, blood was drawn and an abdominal ultrasound was performed. It was determined the patient had gallstone pancreatitis. Ms. Griffiths was subsequently taken to the operating room for a cholecystectomy, performed by Dr. Carson Rondon. Per the available documentation, there were no complications during the procedure. Ms. Griffiths was transferred to the recovery room in stable condition. The patient continued to do well in the recovery room. After some period of time, she was transferred to the floor for further observation. At approximately 7 p.m. on March 05, 2018, the patient was found in her room unresponsive by multiple family members. The nursing staff was notified. Upon initial evaluation, the patient was found to have no pulse and was not breathing. ACLS was immediately initiated. Over the next 35 minutes, the patient received multiple intravenous medications and was defibrillated twice. After approximately 35 minutes, spontaneous circulation returned. Ms. Griffiths was then transferred to the intensive care unit for further evaluation and treatment. Upon admission to the intensive care unit, blood work showed a potassium of 5.9. This after the patient received several doses of intravenous bicarbonate, calcium chloride, and insulin during advanced cardiac life support protocol. The blood work also revealed a hemoglobin of 7.7. The patient's prior hemoglobin had been approximately 12. Emergent hemodialysis was initiated for the hyperkalemia. Ms. Griffiths subsequently underwent a CT of the abdomen and pelvis on March 06, 2018, which demonstrated a dense fluid collection within the abdomen, most in keeping with hemoperitoneum. There was no definite conspicuous focal source of hemorrhage. Immediately after advanced cardiac life support protocol, Ms. Griffiths was placed on continuous norepinephrine and dopamine infusions to support her blood pressure. Those medications were weaned over the next 24 hours. As stated above, the patient did receive emergent hemodialysis for hyperkalemia. In the past approximately 48 hours, the patient has not received pain medication, benzodiazepines, or other sedating medications. Since her cardiopulmonary arrest, the patient has been comatose. Per the patient's ICU nurse, over the past 48 hours, she has been minimally responsive to noxious stimulation. As stated above, the neurology service is consulted to evaluate for anoxic ischemic brain injury. REVIEW OF SYSTEMS: Unable to obtain secondary to the patient being comatose. PAST MEDICAL HISTORY: Hypertension, hyperlipidemia, diabetes mellitus, coronary artery disease, thyroid disease, end-stage renal disease on hemodialysis, cholelithiasis with chronic cholecystitis, and anemia secondary to end-stage renal disease. PAST SURGICAL HISTORY: As per history of present illness, 5-vessel CABG in March 2016, right upper extremity AV fistula placement (nonfunctioning), right upper extremity AV graft placement September 04, 2017, left carpal tunnel release, and right knee surgery. PAST HOSPITALIZATIONS: Surgeries and procedures listed above, child . FAMILY HISTORY: There is a strong family history of hypertension and adult-onset diabetes mellitus. Two of the patient's sisters have been diagnosed with end-stage renal disease. One sister is from complications of end-stage renal disease and diabetes mellitus. SOCIAL HISTORY: The patient is . She is on disability. There is no known current or prior tobacco, alcohol, or recreational drug use. HOME MEDICATIONS 1. Aspirin 81 mg daily by mouth daily. 2. Clopidogrel 75 mg by mouth daily. 3. Coreg 25 mg by mouth twice daily. 4. Amlodipine 5 mg by mouth daily. 5. Lasix 40 mg by mouth 3 times a week. 6. Atorvastatin 40 mg by mouth at bedtime daily. 7. Levemir insulin 20 units subcutaneously daily. 8. Levothyroxine 50 mcg by mouth every morning. 9. Pantoprazole 40 mg by mouth daily. 10. Lyrica 75 mg by mouth twice daily. 11. Tylenol 325 mg by mouth every 6 hours as needed for pain. ALLERGIES: NO KNOWN DRUG ALLERGIES. NO KNOWN FOOD ALLERGIES. NO KNOWN ALLERGIES TO LATEX. NO KNOWN ALLERGIES TO IODINE OR OTHER CONTRAST MATERIALS. PHYSICAL EXAMINATION VITAL SIGNS: Height 62 inches, weight 123 pounds, BMI 22.5 kg per meter squared, blood pressure 142/75 mmHg, pulse 79 beats per minute, and respiratory rate 14 breaths per minute. The patient is on a ventilator. GENERAL: Comatose. HEENT: Normocephalic, atraumatic. Pupils are equal, round, and sluggishly reactive to light. Moist mucous membranes. NECK: Supple. No appreciable thyromegaly. No appreciable carotid bruits. CARDIOVASCULAR: S1 and S2. Regular rate and rhythm. No murmurs, rubs, or gallops. RESPIRATORY: Intubated. Clear to auscultation bilaterally. No wheezes, rhonchi, or rales. The patient is observed to intermittently breathe over the ventilator. EXTREMITIES: The skin is warm and dry. No clubbing or cyanosis. Nonpitting edema over the left hand and arm. The posterior tibial and dorsalis pedis pulses are 1+ and symmetric. SKIN: No rashes or lesions. NEUROLOGIC MEMORY/ATTENTION: Comatose. No response to verbal stimulation. Mild grimace to sternal rub. No response to trapezius pinch. CRANIAL NERVES: Pupils are equal and round, sluggishly reactive to light (4 mm to 3 mm). Corneal and oculocephalic reflexes are intact. The face appears symmetric. Absent gag reflex. STRENGTH: No response to peripheral noxious stimulation (nail bed pressure). DTRs: Deep tendon reflexes are absent throughout. Plantar responses are mute bilaterally. Absent clonus. SENSATION: As per motor examination. CEREBELLAR: Unable to assess secondary to the patient being comatose. GAIT: Unable to assess secondary to the patient being comatose and intubated. SPEECH: Unable to assess secondary to the patient being comatose and intubated. INVOLUNTARY MOVEMENTS: None. PRONATOR DRIFT: As per motor exam. LABORATORY DATA: Sodium 143, potassium 4.3, chloride 94, carbon dioxide 30, anion gap 23.3, BUN 38, creatinine 4.48, estimated GFR 10, BUN to creatinine ratio 8, glucose 210, and calcium 8.2. Total bilirubin 4.2, AST 4202, ALT 785, and alkaline phosphatase 258. Total protein 6.1, albumin 3.1, globulin 3.0, and albumin to globulin ratio 1.0. Troponin-I 3.014. B-natriuretic peptide 906.9. Amylase 261 and lipase 96. CBC with differential and platelets reveals a white blood cell count of 18.26 with 80.9% neutrophils, 13.3% lymphocytes, 4.8% monocytes, 0.0% eosinophils, 0.1% basophils, hemoglobin and hematocrit are 9.6 and 28.3, respectively. The platelet count is 141. PT 18.7 and INR 1.69. Hepatitis B surface antigen negative. Hepatitis B surface antibody quantitative 15.4. Hepatitis B core total antibody negative. IMAGING STUDIES 1. Chest x-ray 03/05/2018: Status post intubation. 2. CT of the brain without contrast 03/06/2018: No intracranial abnormalities. Partial opacification of the mastoid air cells. 3. Chest x-ray 03/06/2018: Low lung volumes and bilateral atelectasis. Endotracheal tube in good position. Left upper extremity PICC line with tip overlying the axillary region. Repositioning recommended. 4. CT of the abdomen and pelvis without contrast 03/06/2018: Dense fluid within the abdomen, most in keeping with hemoperitoneum. There is no definitive conspicuous focal source of hemorrhage. Study sensitivity and specificity is limited by the lack of intravenous contrast. 5. Abdominal x-ray 03/06/2018: Nasogastric tube just beyond the gastroesophageal junction. Consider advancement 10 to 15 cm. Normal bowel gas pattern. Study limited by motion artifact. 6. Chest x-ray 03/07/2018: No acute thoracic abnormality. Tubes and lines are in good position. ASSESSMENT AND PLAN: Ms. Griffiths is a 62-year-old woman with an extensive past medical history as documented, admitted to [facility] on March 03, 2018 with gallstone pancreatitis. The patient underwent a cholecystectomy without intraoperative or immediate postoperative complications. At approximately 7 p.m. on March 05, 2018, the patient was found in cardiopulmonary arrest. Advanced cardiac life support protocol was initiated immediately, and spontaneous circulation returned after approximately 35 minutes. Ms. Griffiths was then transferred to the intensive care unit for further evaluation and treatment. While in the intensive care unit, the patient has been weaned from pressors. She underwent emergent hemodialysis for hyperkalemia. Her potassium is within normal limits. The patient is receiving appropriate medications, including intravenous antibiotics for infection. Within the past 48 hours, the patient has not received pain medications, benzodiazepines, or any other potentially sedating medications. Ms. Griffiths is comatose on examination. She is minimally responsive to sternal rub. Multiple brainstem reflexes appear intact. The patient is observed to intermittently breathe over the ventilator. There is no response to peripheral noxious stimulation. The patient's laboratory data and diagnostic studies have been reviewed and are documented above. Based on the findings on the patient's neurological examination, the patient's brainstem does appear to be intact. However, there is no evidence on neurological examination of higher cortical function. The patient's known history of being found down followed by 35 minutes of advanced cardiac life support before the return of spontaneous circulation is concerning. It is probable the patient has experienced an anoxic ischemic brain injury. Recommendations are as follows: 1. MRI of the brain without contrast STAT. 2. Defer treatment of the remaining medical comorbidities to the primary and other services. Thank you for this consultation. I will continue to follow the patient while she remains in the hospital. TIME SPENT: 90 minutes. Job#: [id number] [id number]
[2018-03-07] MEDS ORDERED: LORAZEPAM INJ 2 MG/ML VIAL IV PRN (20:15)
[2018-03-07] MEDS: ATORVASTATIN 20 MG TAB PO SCH (22:46)
[2018-03-07 23:07] LABS: BASOPHILS % 0.1 % (0.0-1.0); EOSINOPHILS % 0.1 % (0.0-6.0); HEMATOCRIT 24.5 % (34.2-44.1); LYMPHOCYTES # (AUTO) 2.7 (1.0-3.2); LYMPHOCYTES % 15.4 % (18.0-39.1); MEAN CORPUSCULAR HGB CONC 32.7 g/dL (31-35); MEAN CORPUSCULAR VOLUME 91.8 fL (81-99); MONOCYTES # (AUTO) 0.9 (0.2-0.8); MONOCYTES % 5.1 % (4.4-11.3); NEUTROPHILS # (AUTO) 13.2 (2.1-6.9); NEUTROPHILS % 75.2 % (38.7-80.0); PLATELET COUNT 126 x10e3/uL (140-360); RED BLOOD COUNT 2.67 x10e6/uL (3.6-5.1); RED CELL DISTRIBUTION WIDTH 15.9 % (11.7-14.4)
[2018-03-07] MEDS: NOREPINEPHRINE INJ 4MG/4ML 8 MG in DEXTROSE 5% 250ML 242 ML IV SCH (23:15)
[2018-03-07 23:20] LABS: ANION GAP 24.7 mmol/L (8-16); CALCIUM 8.6 mg/dL (8.4-10.2); CREATININE, SERUM 4.21 mg/dL (0.57-1.11); POTASSIUM 4.7 mmol/L (3.5-5.1)
[2018-03-08] VITALS (75 sets, daily range): BP systolic 108–142; BP diastolic 53–72
[2018-03-08] MEDS: INSULIN LISPRO 100 UNIT/1 ML 3ML VIAL SQ SCH ×4 (00:53→18:37)
[2018-03-08 04:39] LABS: BASOPHILS % 0.1 % (0.0-1.0); EOSINOPHILS % 0.1 % (0.0-6.0); LYMPHOCYTES # (AUTO) 3.1 (1.0-3.2); LYMPHOCYTES % 17.5 % (18.0-39.1); MEAN CORPUSCULAR HEMOGLOBIN 29.6 pg (28-32); MEAN CORPUSCULAR HGB CONC 32.1 g/dL (31-35); MEAN CORPUSCULAR VOLUME 92.3 fL (81-99); MONOCYTES # (AUTO) 1.1 (0.2-0.8); MONOCYTES % 6.3 % (4.4-11.3); NEUTROPHILS # (AUTO) 12.9 (2.1-6.9); NEUTROPHILS % 72.5 % (38.7-80.0); PLATELET COUNT 134 x10e3/uL (140-360); RED CELL DISTRIBUTION WIDTH 15.9 % (11.7-14.4)
[2018-03-08 04:41] LABS: HEMOGLOBIN 7.7 g/dL (12.0-16.0)
[2018-03-08 05:10] LABS: ALBUMIN 3.3 g/dL (3.5-5.0); ALBUMIN/GLOBULIN RATIO 1.3 (0.8-2.0); ANION GAP 22.6 mmol/L (8-16); CALCIUM 8.6 mg/dL (8.4-10.2); CREATININE, SERUM 5.02 mg/dL (0.57-1.11); POTASSIUM 4.6 mmol/L (3.5-5.1)
[2018-03-08] MEDS ORDERED: SODIUM CHLORIDE 0.9% 250ML 250 ML IV ONE (05:45)
[2018-03-08] MEDS: METRONIDAZOLE 250MG/NS 50ML 50 ML IV SCH ×3 (05:47→22:00)
[2018-03-08] MEDS: SODIUM CHLORIDE 0.9% 250ML IRRIG IR SCH ×5 (05:47→21:15)
[2018-03-08] MEDS: ATORVASTATIN 20 MG TAB PO SCH (06:00)
--- NOTE | 2018-03-08 07:00 | Diagnostic Imaging Report ---
EXAMINATION: CHEST SINGLE (PORTABLE) INDICATION: Intubated COMPARISON: 03/07/2018 FINDINGS: TUBES and LINES: Endotracheal, NG tube and new right IJ central line catheter are in good position. LUNGS: Lungs are well inflated. Lungs are clear. There is no evidence of pneumonia or pulmonary edema. PLEURA: No pleural effusion or pneumothorax. HEART AND MEDIASTINUM: The cardiomediastinal silhouette is unremarkable. There are atherosclerotic calcifications within the aorta. BONES AND SOFT TISSUES: No acute osseous lesion. Soft tissues are unremarkable. UPPER ABDOMEN: No free air under the diaphragm. IMPRESSION: 1. No acute thoracic abnormality. 2. Tubes and lines are in good position. Signed by: Dr. Fran Yates M.D. on 03/08/2018 6:56 AM
[2018-03-08] MEDS: LEVOTHYROXINE SODIUM 50 MCG TAB PO SCH ×2 (07:21→08:05)
[2018-03-08] MEDS: GLIPIZIDE 5 MG TAB PO SCH ×2 (07:30→18:37)
[2018-03-08] MEDS: INSULIN DETEMIR 100 UNIT/ML PEN SQ SCH (07:44)
[2018-03-08] MEDS ORDERED: ACETAMINOPHEN 325 MG/10 ML UDC NG STA (07:56)
[2018-03-08] MEDS: CEFEPIME HCL 1 GM VIAL IV SCH (09:28)
[2018-03-08] MEDS: PANTOPRAZOLE 40 MG 10ML VIAL IV SCH (09:29)
[2018-03-08] MEDS: FUROSEMIDE 40 MG TAB PO SCH ×2 (09:29→18:37)
[2018-03-08] MEDS: AMLODIPINE BESYLATE 5 MG TAB PO SCH (09:29)
[2018-03-08] MEDS: CARVEDILOL 12.5 MG TAB PO SCH ×2 (09:29→18:37)
[2018-03-08] MEDS ORDERED: ACETAMINOPHEN 1000 MG/100 ML IV STA (10:53)
--- NOTE | 2018-03-08 11:12 | Progress Note ---
DATE: March 08, 2018 CARDIOLOGY PROGRESS NOTE: SUBJECTIVE: Ms. Griffiths is unresponsive. OBJECTIVE VITAL SIGNS: Heart rate 72. Blood pressure 132/63. O2 sat is 100%. CARDIOVASCULAR: Regular rhythm. S3 gallop. Systolic murmur. LUNGS: Fine rhonchi bilaterally. ABDOMEN: Distended. Bowel sounds are absent. TELEMETRY: Sinus rhythm. IMAGING: Brain MRI was reviewed and discussed with Dr. Mcmanus and Dr. Christopher. Chest x-ray shows no acute abnormality with appropriately placed lines and tubes. LABS: Hemoglobin this morning is 7.7. Serum creatinine 5. Transaminases continue to remain elevated. ASSESSMENT 1. Asystole and cardiac arrest in the setting of multiple metabolic derangement. 2. Coronary artery disease status post coronary artery bypass surgery. PLAN: Neurological recovery seems unlikely. Dr. Mcmanus will discuss these findings with the family and decide on further continued care. At this point, supportive ICU care for marked metabolic abnormalities. Job#: [id number]
[2018-03-08] MEDS: NOREPINEPHRINE INJ 4MG/4ML 8 MG in DEXTROSE 5% 250ML 242 ML IV SCH (23:15)
[2018-03-09] VITALS (74 sets, daily range): BP systolic 82–159; BP diastolic 44–94
--- NOTE | 2018-03-09 05:34 | Diagnostic Imaging Report ---
EXAMINATION: CHEST SINGLE (PORTABLE) INDICATION: Intubated COMPARISON: 03/08/2018 FINDINGS: TUBES and LINES: Endotracheal, NG tube and new right IJ central line catheter are in good position. LUNGS: Lungs are well inflated. There are bibasilar atelectasis. There is no evidence of pneumonia or pulmonary edema. PLEURA: No pleural effusion or pneumothorax. HEART AND MEDIASTINUM: The cardiomediastinal silhouette is unremarkable. There are atherosclerotic calcifications within the aorta. BONES AND SOFT TISSUES: No acute osseous lesion. Soft tissues are unremarkable. UPPER ABDOMEN: No free air under the diaphragm. IMPRESSION: 1. No acute thoracic abnormality. 2. Tubes and lines are in good position. Signed by: Dr. Fran Yates M.D. on 03/09/2018 5:31 AM
[2018-03-09 06:15] LABS: BASOPHILS % 0.3 % (0.0-1.0); EOSINOPHILS # (AUTO) 0.2 (0.0-0.4); EOSINOPHILS % 1.1 % (0.0-6.0); HEMATOCRIT 31.7 % (34.2-44.1); HEMOGLOBIN 10.5 g/dL (12.0-16.0); LYMPHOCYTES # (AUTO) 2.1 (1.0-3.2); MEAN CORPUSCULAR HEMOGLOBIN 29.1 pg (28-32); MEAN CORPUSCULAR HGB CONC 33.1 g/dL (31-35); MEAN CORPUSCULAR VOLUME 87.8 fL (81-99); MONOCYTES # (AUTO) 0.8 (0.2-0.8); MONOCYTES % 5.6 % (4.4-11.3); NEUTROPHILS # (AUTO) 11.4 (2.1-6.9); NEUTROPHILS % 76.2 % (38.7-80.0); PLATELET COUNT 127 x10e3/uL (140-360); RED BLOOD COUNT 3.61 x10e6/uL (3.6-5.1); RED CELL DISTRIBUTION WIDTH 17.2 % (11.7-14.4)
[2018-03-09 06:35] LABS: ANION GAP 24.6 mmol/L (8-16); CALCIUM 8.3 mg/dL (8.4-10.2); CREATININE, SERUM 7.42 mg/dL (0.57-1.11); POTASSIUM 4.6 mmol/L (3.5-5.1)
[2018-03-09] MEDS: GLIPIZIDE 5 MG TAB PO SCH ×2 (07:30→16:30)
[2018-03-09] MEDS: METRONIDAZOLE 250MG/NS 50ML 50 ML IV SCH ×3 (07:51→21:38)
[2018-03-09] MEDS: INSULIN LISPRO 100 UNIT/1 ML 3ML VIAL SQ SCH ×4 (07:51→18:00)
[2018-03-09] MEDS: SODIUM CHLORIDE 0.9% 250ML IRRIG IR SCH ×4 (08:38→21:01)
[2018-03-09] MEDS: AMLODIPINE BESYLATE 5 MG TAB PO SCH (09:00)
[2018-03-09 09:23] LABS: ABG HCO3 26 mmol/L (23-28); ABG PCO2 32 mmHg (41-51); ABG PH 7.51 (7.31-7.41); ABG PO2 151 mmHg (80-105)
[2018-03-09] MEDS: PANTOPRAZOLE 40 MG 10ML VIAL IV SCH (09:30)
[2018-03-09] MEDS: CEFEPIME HCL 1 GM VIAL IV SCH (09:40)
[2018-03-09] MEDS: CARVEDILOL 12.5 MG TAB PO SCH ×2 (09:42→18:15)
[2018-03-09] MEDS: INSULIN DETEMIR 100 UNIT/ML PEN SQ SCH ×2 (09:42→17:00)
[2018-03-09] MEDS: FUROSEMIDE 40 MG TAB PO SCH ×2 (09:42→18:15)
[2018-03-09] MEDS: LEVOTHYROXINE SODIUM 50 MCG TAB PO SCH (09:43)
--- NOTE | 2018-03-09 11:32 | Progress Note ---
DATE: March 09, 2018 CARDIOLOGY PROGRESS NOTE SUBJECTIVE: Patient remains intubated. She is not responsive, off all sedation. OBJECTIVE VITAL SIGNS: Temperature 99.9 degrees, pulse 67, respiratory rate 12, blood pressure 145/71, oxygen saturation 100% on mechanical ventilation. GENERAL: Intubated, not responsive, off sedation. No acute distress. LUNGS: Clear to auscultation bilaterally. No wheezes or crackles. CARDIOVASCULAR: Normal rate, regular rhythm. No murmur. Normal S1, S2. ABDOMEN: Soft, nontender. EXTREMITIES: No edema. CARDIAC MEDICATIONS 1. Levothyroxine 50 mcg p.o. daily. 2. Furosemide 40 mg p.o. b.i.d. 3. Carvedilol 25 mg p.o. b.i.d. 4. Amlodipine 5 mg p.o. daily. 5. Atorvastatin 20 mg p.o. nightly. LABS: WBC 15.01, hemoglobin 10.5, hematocrit 31.7, platelets 127. Sodium 143, potassium 4.6, chloride 101, CO2 22, BUN 90, creatinine 7.42. Troponin I 3.658. AST 571, ALT 117. TELEMETRY: Normal sinus rhythm. IMPRESSION 1. Status post pulseless electrical activity arrest. 2. Gallstone pancreatitis, status post laparoscopic cholecystectomy. 3. Hemoperitoneum suggested by computed tomography of abdomen and pelvis. 4. Coronary artery disease, status post 5-vessel coronary artery bypass graft in 2016. 5. End-stage renal disease on hemodialysis. 6. Diabetes mellitus. 7. Hypertension. 8. Hyperlipidemia. 9. Hypothyroidism. 10. Mild right ventricular systolic dysfunction. 11. Elevated troponin, likely demand ischemia due to cardiac arrest. 12. Elevated liver function tests, suspect shock liver. 13. Metabolic acidosis, improved. 14. Acute respiratory failure requiring mechanical ventilation. RECOMMENDATIONS: Continue current cardiac medications. Due to acute anemia, antiplatelet therapy has been discontinued. As the patient is hemodynamically stable off pressors, beta blockers have been restarted. Continue current cardiac medications. Monitor volume status closely. Given her RV dysfunction, she will not tolerate significant hypervolemia. However, given her anemia, she will need support with blood products and fluids as necessary. IV antibiotics per primary service. Ventilator support per pulmonary. The patient's prognosis is poor. Will defer neurologic prognosis to neurology. Thank you for this consult. We will continue to follow. Job#: [id number] MH
[2018-03-09] MEDS ORDERED: MANNITOL 25% 12.5GM/50ML 100 ML ONE (12:16)
[2018-03-09] MEDS ORDERED: ALBUMIN 25% 12.5GM 100 ML IV ONE (12:17)
[2018-03-09] MEDS ORDERED: EPOETIN ALFA 10000 UNIT/ML VIAL SC NR (13:00)
[2018-03-09] MEDS: NOREPINEPHRINE INJ 4MG/4ML 8 MG in DEXTROSE 5% 250ML 242 ML IV SCH (21:38)
[2018-03-09] MEDS: ATORVASTATIN 20 MG TAB PO SCH (21:38)
[2018-03-10] VITALS (88 sets, daily range): BP systolic 115–154; BP diastolic 62–108
[2018-03-10] MEDS: INSULIN LISPRO 100 UNIT/1 ML 3ML VIAL SQ SCH ×4 (00:01→18:00)
[2018-03-10] MEDS: SODIUM CHLORIDE 0.9% 250ML IRRIG IR SCH ×5 (00:06→17:15)
[2018-03-10 06:09] LABS: BASOPHILS # (AUTO) 0.1 (0.0-0.1); BASOPHILS % 0.4 % (0.0-1.0); EOSINOPHILS # (AUTO) 0.5 (0.0-0.4); EOSINOPHILS % 2.3 % (0.0-6.0); HEMATOCRIT 36.7 % (34.2-44.1); HEMOGLOBIN 12.1 g/dL (12.0-16.0); LYMPHOCYTES # (AUTO) 3.2 (1.0-3.2); LYMPHOCYTES % 15.9 % (18.0-39.1); MEAN CORPUSCULAR HEMOGLOBIN 28.9 pg (28-32); MEAN CORPUSCULAR VOLUME 87.6 fL (81-99); MONOCYTES # (AUTO) 0.9 (0.2-0.8); MONOCYTES % 4.3 % (4.4-11.3); NEUTROPHILS % 74.2 % (38.7-80.0); PLATELET COUNT 156 x10e3/uL (140-360); RED BLOOD COUNT 4.19 x10e6/uL (3.6-5.1); RED CELL DISTRIBUTION WIDTH 16.6 % (11.7-14.4)
[2018-03-10] MEDS: METRONIDAZOLE 250MG/NS 50ML 50 ML IV SCH ×3 (06:13→21:54)
[2018-03-10] MEDS: LEVOTHYROXINE SODIUM 50 MCG TAB PO SCH (06:19)
[2018-03-10 06:28] LABS: ALBUMIN 3.4 g/dL (3.5-5.0); ANION GAP 20.1 mmol/L (8-16); CREATININE, SERUM 6.08 mg/dL (0.57-1.11); POTASSIUM 4.1 mmol/L (3.5-5.1)
--- NOTE | 2018-03-10 06:56 | Diagnostic Imaging Report ---
EXAM: CHEST SINGLE (PORTABLE), AP 1 view INDICATION: Cholecystitis COMPARISON: AP view of the chest March 09, 2018 FINDINGS: LINES/TUBES: Stable position of endotracheal tube, nasal/orogastric tube and right internal jugular vein central line. LUNGS: No consolidations or edema. PLEURA: No effusions or pneumothorax. HEART AND MEDIASTINUM: Normal size and contour. BONES AND SOFT TISSUES: No acute findings. IMPRESSION: No significant interval change. Signed by: Dr. Nyasia Cuellar M.D. on 03/10/2018 6:53 AM
[2018-03-10 07:45] LABS: BAND NEUTROPHILS % (MANUAL) 2 %; EOSINOPHILS % (MANUAL) 1 % (0-7); LYMPHOCYTES % (MANUAL) 16 % (19-48); MONOCYTES % (MANUAL) 4 % (3.4-9.0); NEUTROPHILS % (MANUAL) 74 % (40-74)
[2018-03-10 07:46] LABS: HYPOCHROMASIA SLIGHT; POIKILOCYTOSIS SLIGHT
[2018-03-10 07:47] LABS: ANISOCYTOSIS SLIG; PLATELET ESTIMATE ADEQUATE; RBC MORPHOLOGY COMMENT NORMAL
[2018-03-10 07:49] LABS: PLATELET MORPHOLOGY COMMENT NORMAL; SMUDGE CELLS FEW
[2018-03-10] MEDS: PANTOPRAZOLE 40 MG 10ML VIAL IV SCH (09:00)
[2018-03-10] MEDS: INSULIN DETEMIR 100 UNIT/ML PEN SQ SCH ×2 (09:00→17:00)
[2018-03-10] MEDS: FUROSEMIDE 40 MG TAB PO SCH ×2 (09:00→17:30)
[2018-03-10] MEDS: CARVEDILOL 12.5 MG TAB PO SCH ×2 (09:00→17:30)
[2018-03-10] MEDS: AMLODIPINE BESYLATE 5 MG TAB PO SCH (09:00)
[2018-03-10] MEDS: CEFEPIME HCL 1 GM VIAL IV SCH (09:00)
[2018-03-10] MEDS: FLUCONAZOLE 100 MG/NS 50 ML 50 ML IV SCH (10:31)
--- NOTE | 2018-03-10 12:54 | Progress Note ---
DATE: March 10, 2018 CARDIOLOGY PROGRESS NOTE SUBJECTIVE: Patient opens eyes spontaneously but does not interact. She remains intubated. OBJECTIVE VITAL SIGNS: Temperature 99.6 degrees, pulse 75, respiratory rate 12, blood pressure 151/80, oxygen saturation 100% on mechanical ventilation. GENERAL: Well developed, well nourished woman, awake, not responsive. LUNGS: Clear to auscultation bilaterally. No wheezes or crackles. CARDIOVASCULAR: Normal rate, regular rhythm. No murmur. Normal S1, S2. ABDOMEN: Soft, nontender. EXTREMITIES: No edema. CARDIAC MEDICATIONS 1. Levothyroxine 50 mcg p.o. daily. 2. Furosemide 40 mg p.o. b.i.d. 3. Carvedilol 25 mg p.o. b.i.d. 4. Amlodipine 5 mg p.o. daily. LABS: WBC 20.23, hemoglobin 12.1, hematocrit 36.7, platelets 156. Sodium 140, potassium 4.1, chloride 99, CO2 25, BUN 67, creatinine 6.08. AST 326, ALT 84. Troponin 2.842. TELEMETRY: Normal sinus rhythm. IMPRESSION 1. Status post pulseless electrical activity arrest. 2. Gallstone pancreatitis, status post laparoscopic cholecystectomy. 3. Hemoperitoneum suggested by computed tomography of abdomen and pelvis. 4. Coronary artery disease, status post 5-vessel coronary artery bypass graft in 2016. 5. End-stage renal disease on hemodialysis. 6. Diabetes mellitus. 7. Hypertension. 8. Hyperlipidemia. 9. Hypothyroidism. 10. Mild right ventricular dysfunction. 11. Elevated troponin, likely demand ischemia due to cardiac arrest. 12. Elevated liver function tests, suspect shock liver. 13. Metabolic acidosis, improved. 14. Acute respiratory failure requiring mechanical ventilation. RECOMMENDATIONS: Continue current cardiac medications. Due to acute anemia, antiplatelet therapy has been discontinued. Monitor volume status closely. Given her RV dysfunction, she will not tolerate significant hypervolemia. However, given her anemia, she will need support with blood products and fluids as necessary. Volume management per nephrology given end-stage renal disease. IV antibiotics per primary service. Ventilator support per pulmonary. The patient's prognosis is poor. Will defer to neurology for prognosis. Thank you for this consult. We will continue to follow. Job#: [id number]
[2018-03-10] MEDS: NOREPINEPHRINE INJ 4MG/4ML 8 MG in DEXTROSE 5% 250ML 242 ML IV SCH (21:54)
--- NOTE | 2018-03-10 22:29 | Consultation ---
DATE OF CONSULTATION: March 10, 2018 NEUROLOGIC SECOND OPINION TIME: 5 p.m. in the intensive care unit. HISTORY OF PRESENT ILLNESS: This is a 62-year-old female, who was admitted to [facility] with the diagnosis of cholecystitis and pancreatitis. She underwent surgery. She was first of all doing well and then, on March 05, 2018, was in the floor. She was found unresponsive. Advanced cardiac resuscitation was done. The patient was without breathing and pulseless for about 35 minutes when the pulse started again, was transferred to the ICU intubated. The patient had remained unresponsive, has been seen by Dr. Mcmanus, neurology. reveals only brainstem response, but no high cortical function. Second opinion has been requested. Patient has multiple medical problems including hypertension, diabetes mellitus, coronary artery disease, coronary artery bypass, and history of renal failure. At the present time, the patient is not sedated. He is intubated. Family members present. VITAL SIGNS: Stable. LABORATORY WORKUP: Reviewed in detail. NEURO EXAMINATION: The patient, for the 1st time, according to the family opened her eyes and they feel that she follows them, but on my examination shows there is no any eye tracking at all. She has random eye movements. Noxious stimulation, light stimulation does not follow. Pupils are small, sluggish reaction, but equal. Does move . Corneal reflex present. No facial weakness. Limbs are flatted. No withdrawal neither of the arms, neither of the legs to pain stimulation. Plantar response absent bilaterally. Neck supple. IMPRESSIONS 1. Hypoxic encephalopathy secondary to cardiac arrest. 2. Hypertension. 3. Hyperlipidemia. 4. Diabetes mellitus. 5. End-stage renal failure. So far, since the 3rd, the patient does not have any coronary function. Examination reveals only brainstem examination. MRI of the brain shows no acute pathology, just showing small lacunar infarction in the cerebellum and some small changes in the white matter bilaterally. Prognosis quite guarded. Family member explained in detail and they were advised to stimulate the patient from time to time and see if she is able to follow them. At present time, I do not see any response from her. I have discussed with Dr. Mcmanus, neurologist, and she is taking good care of this patient. Job#: [id number] CQ
[2018-03-11] VITALS (54 sets, daily range): BP systolic 80–148; BP diastolic 35–128
[2018-03-11] MEDS: INSULIN LISPRO 100 UNIT/1 ML 3ML VIAL SQ SCH ×4 (00:09→18:00)
[2018-03-11] MEDS ORDERED: LORAZEPAM INJ 2 MG/ML VIAL IV ONE (05:19)
[2018-03-11] MEDS ORDERED: LORAZEPAM INJ 2 MG/ML VIAL ONE ×2 (05:23→13:02)
[2018-03-11] MEDS: METRONIDAZOLE 250MG/NS 50ML 50 ML IV SCH ×3 (05:30→22:00)
[2018-03-11] MEDS: LEVOTHYROXINE SODIUM 50 MCG TAB PO SCH (05:46)
--- NOTE | 2018-03-11 05:56 | Diagnostic Imaging Report ---
EXAM: CHEST SINGLE (PORTABLE), AP 1 view INDICATION: Cholecystitis, intubated COMPARISON: AP view of the chest March 10, 2018 FINDINGS: LINES/TUBES: Stable position of endotracheal tube, nasogastric tube and right internal jugular vein central line. LUNGS: No consolidations or edema. PLEURA: No effusions or pneumothorax. HEART AND MEDIASTINUM: Normal size and contour. BONES AND SOFT TISSUES: No acute findings. IMPRESSION: No significant interval change. Signed by: Dr. Nyasia Cuellar M.D. on 03/11/2018 5:53 AM
[2018-03-11 06:12] LABS: BASOPHILS # (AUTO) 0.1 (0.0-0.1); BASOPHILS % 0.5 % (0.0-1.0); EOSINOPHILS # (AUTO) 0.5 (0.0-0.4); HEMATOCRIT 36.3 % (34.2-44.1); HEMOGLOBIN 11.9 g/dL (12.0-16.0); LYMPHOCYTES # (AUTO) 2.6 (1.0-3.2); LYMPHOCYTES % 10.8 % (18.0-39.1); MEAN CORPUSCULAR HEMOGLOBIN 29.2 pg (28-32); MEAN CORPUSCULAR HGB CONC 32.8 g/dL (31-35); MEAN CORPUSCULAR VOLUME 89.2 fL (81-99); MONOCYTES # (AUTO) 1.2 (0.2-0.8); MONOCYTES % 4.9 % (4.4-11.3); NEUTROPHILS # (AUTO) 18.8 (2.1-6.9); NEUTROPHILS % 78.8 % (38.7-80.0); PLATELET COUNT 166 x10e3/uL (140-360); RED BLOOD COUNT 4.07 x10e6/uL (3.6-5.1); RED CELL DISTRIBUTION WIDTH 16.3 % (11.7-14.4)
[2018-03-11 06:38] LABS: ALBUMIN 3.1 g/dL (3.5-5.0); ALBUMIN/GLOBULIN RATIO 0.8 (0.8-2.0); ANION GAP 21.5 mmol/L (8-16); CALCIUM 8.9 mg/dL (8.4-10.2); CREATININE, SERUM 7.96 mg/dL (0.57-1.11); POTASSIUM 4.5 mmol/L (3.5-5.1)
[2018-03-11] MEDS: INSULIN DETEMIR 100 UNIT/ML PEN SQ SCH ×2 (09:00→17:00)
[2018-03-11] MEDS ORDERED: DIATRIZOATE MEGL/DIATRIZOA SOD 30 ML BTL PO ONE (10:16)
[2018-03-11] MEDS: AMLODIPINE BESYLATE 5 MG TAB PO SCH (10:42)
[2018-03-11] MEDS: CARVEDILOL 12.5 MG TAB PO SCH ×2 (10:42→17:00)
[2018-03-11] MEDS: PANTOPRAZOLE 40 MG 10ML VIAL IV SCH (10:42)
[2018-03-11] MEDS: FUROSEMIDE 40 MG TAB PO SCH ×2 (10:42→17:00)
[2018-03-11] MEDS: CEFEPIME HCL 1 GM VIAL IV SCH (10:42)
[2018-03-11] MEDS: FLUCONAZOLE 100 MG/NS 50 ML 50 ML IV SCH (12:37)
--- NOTE | 2018-03-11 14:00 | Progress Note ---
DATE: March 11, 2018 CARDIOLOGY PROGRESS NOTE SUBJECTIVE: The patient remains intubated. She opens her eyes but does not track to stimuli. Myoclonic jerks are noted. She has just returned from CT abdomen and pelvis. CT chest could not be performed due to unable to achieve sufficient IV access. OBJECTIVE VITAL SIGNS: Temperature 98.7 degrees, pulse 71, respiratory rate 16, blood pressure 116/64, oxygen saturation 99% on mechanical ventilation. GENERAL: A well-developed, well-nourished woman in no acute distress, intubated and not responsive. LUNGS: Clear to auscultation bilaterally. No wheezes or crackles. CARDIOVASCULAR: Normal rate, regular rhythm. No murmur. Normal S1 and S2. ABDOMEN: Soft, nontender. EXTREMITIES: No edema. NEUROLOGIC: Myoclonic jerks are noted. CARDIAC MEDICATIONS 1. Amlodipine 5 mg p.o. daily. 2. Lasix 40 mg p.o. b.i.d. 3. Carvedilol 25 mg p.o. b.i.d. 4. Levothyroxine 50 mcg p.o. daily. LABS: WBC 23.87, hemoglobin 11.9, hematocrit 36.3, platelets 166. Sodium 141, potassium 4.5, chloride 99, CO2 25, BUN 103, creatinine 7.96. AST 175, ALT 57, amylase 457, lipase 519. TELEMETRY: Normal sinus rhythm. IMPRESSION 1. Status post pulseless electrical activity arrest. 2. Gallstone pancreatitis status post laparoscopic cholecystectomy. 3. Hemoperitoneum suggested by computed tomography abdomen and pelvis. 4. Coronary artery disease status post 5-vessel coronary artery bypass graft in 2016. 5. End-stage renal disease, on hemodialysis. 6. Diabetes mellitus. 7. Hypertension. 8. Hyperlipidemia. 9. Hypothyroidism. 10. Mild right ventricular dysfunction. 11. Elevated troponin, likely demand ischemia due to cardiac arrest. 12. Elevated liver function tests, suspect shock liver. 13. Metabolic acidosis, reduced. 14. Acute respiratory failure requiring mechanical ventilation. RECOMMENDATIONS: Continue current cardiac medications. Due to acute anemia, antiplatelet therapy has been discontinued. Monitor volume status closely. Given her RV dysfunction, she will not tolerate significant hypervolemia. Volume management per Nephrology given end-stage renal disease. IV antibiotics per primary service. Ventilator management per Pulmonary. Patient is undergoing evaluation by Neurology. However, her prognosis is poor. Thank you for this consult. We will continue to follow. Job#: [id number] [email or web address]
[2018-03-11] MEDS ORDERED: IOPAMIDOL 370 MG/ML 200 ML INFUS..BTL INJ ONE (14:50)
--- NOTE | 2018-03-11 16:12 | Diagnostic Imaging Report ---
PROCEDURE: CT ABDOMEN AND PELVIS WITH CONTRAST TECHNIQUE: The abdomen and pelvis were scanned utilizing a multidetector helical scanner from the diaphragm to the lesser trochanter after the IV administration of 100 cc of Isovue 370 and the oral administration of Gastroview Coronal and sagittal multiplanar reformations were obtained. DLP: 342.66 mGy-cm COMPARISON: Abdominal CT 03/25/2016, 09/05/2017, 03/06/2018 INDICATIONS: PANCREATITIS FINDINGS: LINES: Partially visualized tip of a central venous catheter in the cavoatrial junction. Enteric tube tip in the gastric fundus. Tovar catheter in the bladder. LOWER THORAX: Coronary artery calcifications. No pericardial effusion. Trace left pleural effusion. No right pleural effusion. Mild dependent atelectasis in both lower lobes. Punctate calcified granulomas. Median sternotomy wires. HEPATOBILIARY: No focal hepatic lesions. No biliary ductal dilatation. Cholecystectomy clips. SPLEEN: No splenomegaly. Stable wedge shaped area of hypoattenuation in the mid portion likely represent an infarct when compared to 03/25/2016. PANCREAS: No focal masses or ductal dilatation. No peripancreatic stranding or loss of the pancreatic lobulations. ADRENALS: No adrenal nodules. KIDNEYS/URETERS: No hydronephrosis or stones. Previously noted wedge shaped defect in the interpolar region of the right kidney currently appears to represent an angiomyolipoma given a 0.8 cm central focus of enhancement (series 2 image 35; coronal image 52). This lesion measures approximately 6.3 x 5.3 x 3.8 cm. No surrounding hemorrhage to indicate this as the source of hemorrhagic fluid. PELVIC ORGANS/BLADDER: Arcuate uterine artery calcifications. Right ovarian 3.1 cm cyst, stable since at least 09/05/2017. PERITONEUM / RETROPERITONEUM: No free air. Grossly stable volume of dense fluid representing hemoperitoneum which may have changed in distribution, mildly increased in the right lower quadrant and decreased in the left upper quadrant when compared to 03/06/2018. LYMPH NODES: No lymphadenopathy. VESSELS: Moderate diffuse atherosclerosis and diffuse arteriosclerosis. No abdominal aortic aneurysm. GI TRACT: No distention or wall thickening. Colonic diverticula without evidence of diverticulitis. BONES AND SOFT TISSUES: Mild degenerative changes of the spine. Decreased conspicuity of the previous laparoscopic port sites. IMPRESSION: 1. No CT evidence of pancreatitis. Recommend correlation with lipase. 2. Stable hemoperitoneum. Given the laparoscopic ports, this may be post-operative in etiology. No conspicuous source of hemorrhage. 3. 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 Large size may increase the risk of hemorrhage. 4. 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 5. Right ovarian 3.1 cm cyst. Recommend follow up pelvic ultrasound in 12 months given postmenopausal status. 1. Dictated by: Krzysztof Dumont M.D. on 03/11/2018 at 16:12 Electronically approved by: Krzysztof Dumont M.D. on 03/11/2018 at 16:12
[2018-03-11] MEDS: LORAZEPAM INJ 2 MG/ML VIAL IV PRN (19:05)
[2018-03-11] MEDS: LEVETIRACETAM ORAL SOLUTION 500 MG/5 ML SOLN NG SCH (21:00)
[2018-03-11] MEDS: NOREPINEPHRINE INJ 4MG/4ML 8 MG in DEXTROSE 5% 250ML 242 ML IV SCH (23:15)
[2018-03-12] VITALS (93 sets, daily range): BP systolic 51–224; BP diastolic 21–173
[2018-03-12 05:18] LABS: BASOPHILS # (AUTO) 0.1 (0.0-0.1); BASOPHILS % 0.4 % (0.0-1.0); EOSINOPHILS # (AUTO) 0.5 (0.0-0.4); EOSINOPHILS % 2.3 % (0.0-6.0); HEMATOCRIT 33.2 % (34.2-44.1); HEMOGLOBIN 10.9 g/dL (12.0-16.0); LYMPHOCYTES # (AUTO) 2.4 (1.0-3.2); LYMPHOCYTES % 10.6 % (18.0-39.1); MEAN CORPUSCULAR HEMOGLOBIN 29.3 pg (28-32); MEAN CORPUSCULAR HGB CONC 32.8 g/dL (31-35); MEAN CORPUSCULAR VOLUME 89.2 fL (81-99); MONOCYTES # (AUTO) 1.3 (0.2-0.8); MONOCYTES % 5.5 % (4.4-11.3); NEUTROPHILS % 78.9 % (38.7-80.0); PLATELET COUNT 181 x10e3/uL (140-360); RED BLOOD COUNT 3.72 x10e6/uL (3.6-5.1); RED CELL DISTRIBUTION WIDTH 17.2 % (11.7-14.4)
[2018-03-12 05:43] LABS: ALBUMIN/GLOBULIN RATIO 1.2 (0.8-2.0); ANION GAP 22.6 mmol/L (8-16); CALCIUM 9.3 mg/dL (8.4-10.2); CREATININE, SERUM 5.52 mg/dL (0.57-1.11); POTASSIUM 4.6 mmol/L (3.5-5.1)
[2018-03-12] MEDS: INSULIN LISPRO 100 UNIT/1 ML 3ML VIAL SQ SCH ×4 (06:00→18:43)
[2018-03-12] MEDS: METRONIDAZOLE 250MG/NS 50ML 50 ML IV SCH ×3 (06:00→22:10)
--- NOTE | 2018-03-12 07:38 | Diagnostic Imaging Report ---
PROCEDURE: A single AP view of the chest. COMPARISON: Portable chest 03/11/2018. INDICATIONS: VENT FINDINGS: Lines/tubes: Endotracheal catheter is present with the tip projecting over the expected region of the trachea, positioned 2 cm from the lizet. Enteric feeding catheter is present with the tip projecting over the expected region of the gastric fundus. Right internal jugular temporary central venous catheter with tip projecting over the expected region of the right atrium. Lungs: The lungs are well inflated and clear. There is no evidence of pneumonia or pulmonary edema. Bibasilar atelectasis. Pleura: There is no pleural effusion or pneumothorax. Heart and mediastinum: The heart and the mediastinum are unremarkable. Bones: No acute bony abnormality. Median sternotomy wires. IMPRESSION: No acute radiographic abnormality. Dictated by: Cole Salguero M.D. on 03/12/2018 at 7:39 Electronically approved by: Cole Salguero M.D. on 03/12/2018 at 7:39
[2018-03-12 08:17] LABS: ANISOCYTOSIS SLIGHT; EOSINOPHILS % (MANUAL) 3 % (0-7); HYPOCHROMASIA SLIGHT; LYMPHOCYTES % (MANUAL) 9 % (19-48); METAMYELOCYTES % (MANUAL) 1 % (0-0); MONOCYTES % (MANUAL) 3 % (3.4-9.0); NEUTROPHILS % (MANUAL) 84 % (40-74); PLATELET ESTIMATE ADEQUATE; POIKILOCYTOSIS SLIGHT
[2018-03-12 08:18] LABS: PLATELET MORPHOLOGY COMMENT FEW LARGE; RBC MORPHOLOGY COMMENT NORMAL
[2018-03-12] MEDS: INSULIN DETEMIR 100 UNIT/ML PEN SQ SCH ×2 (09:00→17:00)
[2018-03-12] MEDS: LEVETIRACETAM ORAL SOLUTION 500 MG/5 ML SOLN NG SCH ×2 (09:55→22:10)
[2018-03-12] MEDS: PANTOPRAZOLE 40 MG 10ML VIAL IV SCH (09:55)
[2018-03-12] MEDS: CEFEPIME HCL 1 GM VIAL IV SCH (09:55)
[2018-03-12] MEDS: LEVOTHYROXINE SODIUM 50 MCG TAB PO SCH (09:55)
[2018-03-12] MEDS: FLUCONAZOLE 100 MG/NS 50 ML 50 ML IV SCH (10:00)
[2018-03-12] MEDS: FUROSEMIDE 40 MG TAB PO SCH ×2 (14:26→18:15)
[2018-03-12] MEDS: AMLODIPINE BESYLATE 5 MG TAB PO SCH (14:26)
[2018-03-12] MEDS: CARVEDILOL 12.5 MG TAB PO SCH ×2 (14:26→17:00)
--- NOTE | 2018-03-12 14:39 | Progress Note ---
DATE: March 12, 2018 CARDIOLOGY PROGRESS NOTE SUBJECTIVE: Patient remains intubated. She is not responsive. [facility] OBJECTIVE VITAL SIGNS: Temperature 100.2 degrees, pulse 81, respiratory rate 16, blood pressure 122/94, oxygen saturation 100% on mechanical ventilation. GENERAL: A well-developed, well-nourished woman in no acute distress. Intubated and not responsive. LUNGS: Clear to auscultation bilaterally. No wheezes or crackles. CARDIOVASCULAR: Normal rate, regular rhythm. No murmur. Normal S1 and S2. ABDOMEN: Soft, nontender. EXTREMITIES: No edema. NEUROLOGIC: Myoclonic jerks are noted. CARDIAC MEDICATIONS 1. Levothyroxine 50 mcg p.o. daily. 1. Amlodipine 5 mg p.o. daily. 2. Lasix 40 mg p.o. b.i.d. 3. Carvedilol 25 mg p.o. b.i.d. LABS: WBC 22.82, hemoglobin 10.9, hematocrit 33.2, platelets 181. Sodium 139, potassium 4.6, chloride 97, CO2 24, BUN 60, creatinine 5.52. Amylase 605, lipase 491. AST 134, ALT 42. TELEMETRY: Normal sinus rhythm. IMPRESSION 1. Status post pulseless electrical activity arrest. 2. Gallstone pancreatitis, status post laparoscopic cholecystectomy. 3. Hemoperitoneum suggested by computed tomography abdomen and pelvis. 4. Coronary artery disease, status post 5-vessel coronary artery bypass graft in 2016. 5. End-stage renal disease on hemodialysis. 6. Diabetes mellitus. 7. Hypertension. 8. Hyperlipidemia. 9. Hypothyroidism. 10. Mild right ventricular dysfunction. 11. Elevated troponin, likely demand ischemia due to cardiac arrest. 12. Elevated liver function tests, suspect shock liver. 13. Metabolic acidosis, improved. 14. Acute respiratory failure requiring mechanical ventilation. RECOMMENDATIONS: Continue current cardiac medications. Due to acute anemia, antiplatelet therapy has been discontinued. Monitor volume status closely. Given her RV dysfunction, she will not tolerate significant hypervolemia. Volume management per Nephrology given end-stage renal disease. IV antibiotics per primary service. Ventilator management per Pulmonary. Patient is undergoing evaluation by Neurology. Prognosis is poor. Thank you for this consult. We will continue to follow. Job#: [id number] EV
[2018-03-12] MEDS: LORAZEPAM INJ 2 MG/ML VIAL IV PRN (18:17)
[2018-03-12] MEDS: NOREPINEPHRINE INJ 4MG/4ML 8 MG in DEXTROSE 5% 250ML 242 ML IV SCH (23:15)
[2018-03-13] VITALS (81 sets, daily range): BP systolic 51–135; BP diastolic 22–92
[2018-03-13] MEDS: INSULIN LISPRO 100 UNIT/1 ML 3ML VIAL SQ SCH ×4 (05:09→17:40)
[2018-03-13 05:13] LABS: BASOPHILS # (AUTO) 0.1 (0.0-0.1); BASOPHILS % 0.2 % (0.0-1.0); EOSINOPHILS # (AUTO) 0.4 (0.0-0.4); EOSINOPHILS % 2.1 % (0.0-6.0); HEMATOCRIT 32.7 % (34.2-44.1); HEMOGLOBIN 10.6 g/dL (12.0-16.0); LYMPHOCYTES # (AUTO) 2.2 (1.0-3.2); LYMPHOCYTES % 10.7 % (18.0-39.1); MEAN CORPUSCULAR HEMOGLOBIN 29.5 pg (28-32); MEAN CORPUSCULAR HGB CONC 32.4 g/dL (31-35); MEAN CORPUSCULAR VOLUME 91.1 fL (81-99); MONOCYTES # (AUTO) 1.5 (0.2-0.8); MONOCYTES % 7.5 % (4.4-11.3); NEUTROPHILS # (AUTO) 15.6 (2.1-6.9); NEUTROPHILS % 77.6 % (38.7-80.0); PLATELET COUNT 209 x10e3/uL (140-360); RED BLOOD COUNT 3.59 x10e6/uL (3.6-5.1); RED CELL DISTRIBUTION WIDTH 17.2 % (11.7-14.4)
[2018-03-13] MEDS: LEVOTHYROXINE SODIUM 50 MCG TAB PO SCH (05:27)
[2018-03-13 05:36] LABS: ALBUMIN 3.5 g/dL (3.5-5.0); ANION GAP 27.2 mmol/L (8-16); CALCIUM 8.8 mg/dL (8.4-10.2); CREATININE, SERUM 7.88 mg/dL (0.57-1.11); POTASSIUM 5.2 mmol/L (3.5-5.1)
[2018-03-13] MEDS: LORAZEPAM INJ 2 MG/ML VIAL IV PRN ×2 (06:00→20:30)
--- NOTE | 2018-03-13 06:09 | Diagnostic Imaging Report ---
EXAM: CHEST SINGLE (PORTABLE), AP 1 view INDICATION: Ventilated patient COMPARISON: AP view of the chest March 12, 2018 FINDINGS: LINES/TUBES: Stable position of endotracheal tube, nasal/orogastric tube, right internal jugular vein. LUNGS: New consolidation in the right lung base. PLEURA: No effusions or pneumothorax. HEART AND MEDIASTINUM: Stable BONES AND SOFT TISSUES: No acute findings. IMPRESSION: New consolidation in the right lung base that could represent pneumonia or aspiration. Signed by: Dr. Nyasia Cuellar M.D. on 03/13/2018 6:05 AM
[2018-03-13 07:58] LABS: ANION GAP 24.1 mmol/L (8-16); CALCIUM 8.8 mg/dL (8.4-10.2); CREATININE, SERUM 8.01 mg/dL (0.57-1.11); POTASSIUM 5.1 mmol/L (3.5-5.1)
[2018-03-13] MEDS: INSULIN DETEMIR 100 UNIT/ML PEN SQ SCH ×2 (09:00→17:00)
[2018-03-13] MEDS: AMLODIPINE BESYLATE 5 MG TAB PO SCH (09:00)
[2018-03-13] MEDS ORDERED: MEROPENEM 500MG 500 MG in SODIUM CHLORIDE 0.9% 50ML 50 ML IV SCH (09:00)
[2018-03-13] MEDS: CARVEDILOL 12.5 MG TAB PO SCH ×2 (09:00→17:00)
[2018-03-13] MEDS ORDERED: VANCOMYCIN 1GM/NS 250 ML 250 ML IV ONE (09:30)
[2018-03-13] MEDS: MEROPENEM 500 MG VIAL IV SCH ×2 (09:30→20:30)
[2018-03-13] MEDS: FUROSEMIDE 40 MG TAB PO SCH ×2 (09:35→17:00)
[2018-03-13] MEDS: PANTOPRAZOLE 40 MG 10ML VIAL IV SCH (09:35)
[2018-03-13] MEDS: LEVETIRACETAM ORAL SOLUTION 500 MG/5 ML SOLN NG SCH ×2 (09:35→20:30)
[2018-03-13] MEDS ORDERED: VANCOMYCIN 1GM/NS 250 ML 250 ML ONE (09:56)
[2018-03-13 10:23] LABS: ALBUMIN 3.5 g/dL (3.5-5.0); ANION GAP 26.3 mmol/L (8-16); CALCIUM 8.9 mg/dL (8.4-10.2); CREATININE, SERUM 8.18 mg/dL (0.57-1.11); MAGNESIUM 2.5 MG/DL (1.3-2.1); PHOSPHORUS 7.7 MG/DL (2.3-4.7); POTASSIUM 5.3 mmol/L (3.5-5.1)
[2018-03-13] MEDS: FLUCONAZOLE 100 MG/NS 50 ML 50 ML IV SCH (10:30)
--- NOTE | 2018-03-13 16:13 | Progress Note ---
DATE: March 13, 2018 CARDIOLOGY PROGRESS NOTE SUBJECTIVE: Patient remains intubated. She is unresponsive with myoclonic jerks. Primary plan is to start systolic TPN due to worsening amylase and lipase. OBJECTIVE VITAL SIGNS: Temperature 100.4 degrees, pulse 73, respiratory rate 13, blood pressure 125/40, and oxygen saturation 100% on mechanical ventilation. GENERAL: Well-developed, well-nourished woman, in no acute distress, intubated and not responsive. LUNGS: Clear to auscultation bilaterally. No wheezes or crackles. CARDIOVASCULAR: Normal rate, regular rhythm. No murmur. Normal S1 and S2. ABDOMEN: Soft and nontender. EXTREMITIES: No edema. Myoclonic jerks are present. CARDIAC MEDICATIONS 1. Furosemide 40 mg p.o. b.i.d. 2. Levothyroxine 50 mcg p.o. daily. 3. Amlodipine 5 mg p.o. daily. 4. Carvedilol 25 mg p.o. b.i.d. LABS: Sodium 134, potassium 5.3, chloride 94, CO2 19, BUN 106, creatinine 8.18, amylase 7.9, lipase 597, AST 94, and ALT 35. TELEMETRY: Normal sinus rhythm. IMPRESSION 1. Status post pulseless electrical activity arrest. 2. Hypoxic brain injury. 3. Gallstone pancreatitis, status post laparoscopic cholecystectomy. 4. Hemoperitoneum, suggested by CT abdomen and pelvis. 5. Acute anemia, status post transfusion, now stabilized. 6. Coronary artery disease, status post bi-vessel coronary artery bypass graft in 2016. 7. End-stage renal disease, on hemodialysis. 8. Diabetes mellitus. 9. Patient is hyperlipidemic. 10. Hypothyroidism. 11. Mild right ventricular dysfunction. 12. Elevated troponin, likely demand ischemia due to cardiac arrest. 13. Elevated liver function tests, especially shock liver. 14. Acute respiratory failure, requiring mechanical ventilation. 15. Leukocytosis. RECOMMENDATIONS: Continue current cardiac medications. Due to patient's acute anemia, antiplatelet therapy was discontinued. Monitor volume status closely. Given her RV dysfunction, she will not tolerate significant hypervolemia, volume management per nephrology given end-stage renal disease. IV antibiotics per primary service. Ventilator management per pulmonary. Patient's prognosis is poor. Awaiting transfer to [facility]. Thank you for this consult. We will continue to follow. Job#: [id number] PAT MTDD
[2018-03-13] MEDS ORDERED: NOREPINEPHRINE 8 MG/D5W 250 ML 250 ML IV PRN (17:15)
[2018-03-13 18:09] LABS: ABG HCO3 28 mmol/L (23-28); ABG PCO2 33 mmHg (41-51); ABG PH 7.53 (7.31-7.41); ABG PO2 99 mmHg (80-105)
[2018-03-13] MEDS ORDERED: CENTRAL TPN FORMULA 1 BAG IV SCH (20:00)
[2018-03-13] MEDS ORDERED: SODIUM CHLORIDE 0.9% 250ML 250 ML ONE (22:35)
[2018-03-13] MEDS: NOREPINEPHRINE INJ 4MG/4ML 8 MG in DEXTROSE 5% 250ML 242 ML IV SCH (23:15)
[2018-03-14] VITALS (93 sets, daily range): BP systolic 82–200; BP diastolic 38–115
[2018-03-14 05:50] LABS: BASOPHILS % 0.2 % (0.0-1.0); EOSINOPHILS # (AUTO) 0.3 (0.0-0.4); EOSINOPHILS % 1.6 % (0.0-6.0); HEMATOCRIT 31.3 % (34.2-44.1); HEMOGLOBIN 10.3 g/dL (12.0-16.0); LYMPHOCYTES # (AUTO) 1.5 (1.0-3.2); LYMPHOCYTES % 7.8 % (18.0-39.1); MEAN CORPUSCULAR HEMOGLOBIN 30.2 pg (28-32); MEAN CORPUSCULAR HGB CONC 32.9 g/dL (31-35); MEAN CORPUSCULAR VOLUME 91.8 fL (81-99); MONOCYTES # (AUTO) 1.6 (0.2-0.8); MONOCYTES % 8.7 % (4.4-11.3); PLATELET COUNT 243 x10e3/uL (140-360); RED BLOOD COUNT 3.41 x10e6/uL (3.6-5.1); RED CELL DISTRIBUTION WIDTH 17.3 % (11.7-14.4)
[2018-03-14] MEDS: LEVOTHYROXINE SODIUM 50 MCG TAB PO SCH (06:13)
[2018-03-14 06:14] LABS: ALBUMIN 3.6 g/dL (3.5-5.0); CALCIUM 8.9 mg/dL (8.4-10.2); CREATININE, SERUM 4.94 mg/dL (0.57-1.11)
[2018-03-14] MEDS: INSULIN LISPRO 100 UNIT/1 ML 3ML VIAL SQ SCH ×4 (06:20→17:54)
[2018-03-14 06:38] LABS: AMYLASE 544 U/L (25-125); LIPASE 506 U/L (8-78)
--- NOTE | 2018-03-14 06:42 | Diagnostic Imaging Report ---
EXAM: CHEST SINGLE (PORTABLE), AP 1 view INDICATION: Cholecystitis COMPARISON: AP view of the chest March 13, 2018 FINDINGS: LINES/TUBES: Endotracheal tube is within 1 cm of the lizet. Stable position of right internal jugular vein central line and nasal/orogastric tube. LUNGS: Resolution of consolidation the right lung base. PLEURA: No effusions or pneumothorax. HEART AND MEDIASTINUM: Normal size and contour. BONES AND SOFT TISSUES: No acute findings. IMPRESSION: 1. Endotracheal tube is within 1 cm of the lizet. 2. Resolution of right lower lobe consolidation. Signed by: Dr. Nyasia Cuellar M.D. on 03/14/2018 6:38 AM
[2018-03-14] MEDS: LORAZEPAM INJ 2 MG/ML VIAL IV PRN ×2 (08:39→14:45)
[2018-03-14] MEDS: MEROPENEM 500 MG VIAL IV SCH ×2 (08:53→20:15)
[2018-03-14] MEDS: PANTOPRAZOLE 40 MG 10ML VIAL IV SCH (08:54)
[2018-03-14] MEDS: FUROSEMIDE 40 MG TAB PO SCH ×2 (09:00→17:00)
[2018-03-14] MEDS: CARVEDILOL 12.5 MG TAB PO SCH ×2 (09:00→17:00)
[2018-03-14] MEDS: AMLODIPINE BESYLATE 5 MG TAB PO SCH (09:00)
[2018-03-14] MEDS: LEVETIRACETAM ORAL SOLUTION 500 MG/5 ML SOLN NG SCH ×2 (09:00→20:15)
[2018-03-14 09:03] LABS: ANISOCYTOSIS SLIGHT; BAND NEUTROPHILS % (MANUAL) 2 %; LYMPHOCYTES % (MANUAL) 1 % (19-48); MONOCYTES % (MANUAL) 4 % (3.4-9.0); NEUTROPHILS % (MANUAL) 93 % (40-74); PLATELET ESTIMATE ADEQUATE; PLATELET MORPHOLOGY COMMENT NORMAL; RBC MORPHOLOGY COMMENT ABNORMAL
[2018-03-14] MEDS ORDERED: FLUCONAZOLE 200 MG/100 ML 50 ML IV SCH (09:30)
[2018-03-14] MEDS: FLUCONAZOLE 200 MG/100 ML 50 ML IV SCH (10:25)
[2018-03-14] MEDS ORDERED: CENTRAL TPN FORMULA 1 BAG IV SCH (10:50)
[2018-03-14] MEDS ORDERED: INSULIN LISPRO 100 UNIT/1 ML 3ML VIAL SQ SCH ×2 (12:45→18:00)
--- NOTE | 2018-03-14 13:24 | Progress Note ---
DATE: March 14, 2018 CARDIOLOGY PROGRESS NOTE SUBJECTIVE: Patient remains intubated. She is unresponsive. Request for transfer to [facility] the [facility] is pending an accepting physician and a bed. OBJECTIVE VITAL SIGNS: Temperature 101.3 degrees, pulse 83, respiratory rate 20, blood pressure 134/66, oxygen saturation 100% on mechanical ventilation. GENERAL: Well-developed, well-nourished woman in no acute distress. Intubated, not responsive. LUNGS: Clear to auscultation bilaterally. No wheezes or crackles. CARDIOVASCULAR: Normal rate, regular rhythm. Systolic murmur. Normal S1 and S2. ABDOMEN: Soft, nontender. EXTREMITIES: No edema. NEUROLOGIC: Myoclonic jerks are noted. CARDIAC MEDICATIONS 1. Amlodipine 5 mg p.o. daily. 2. Furosemide 40 mg p.o. b.i.d. 3. Carvedilol 25 mg p.o. b.i.d. 4. Levothyroxine 50 mcg p.o. daily. LABS: WBC 18.68, hemoglobin 10.3, hematocrit 31.3, platelets 243. Sodium 136, potassium 4, chloride 97, CO2 22, BUN 54, creatinine 4.94. Amylase 554, lipase 506. TELEMETRY: Normal sinus rhythm. IMPRESSION 1. Status post pulseless electrical activity arrest. 2. Hypoxic brain injury. 3. Gallstone pancreatitis, status post laparoscopic cholecystectomy. 4. Hemoperitoneum suggested by computed tomography abdomen and pelvis. 5. Acute anemia, status post transfusion, now stable. 6. Coronary artery disease, status post 5-vessel coronary artery bypass graft in 2016. 7. End-stage renal disease, on hemodialysis. 8. Diabetes mellitus. 9. Hyperlipidemia. 10. Hypothyroidism. 11. Mild right ventricular dysfunction. 12. Hypertension. 13. Elevated troponin, likely demand ischemia due to cardiac arrest. 14. Elevated liver function tests, suspect shock liver. 15. Metabolic acidosis, improved. 16. Acute respiratory failure requiring mechanical ventilation. RECOMMENDATIONS: Continue current cardiac medications. Due to patient's acute anemia, antiplatelet therapy was discontinued. Will repeat BNP. Given her RV dysfunction, she will not tolerate significant hypervolemia. Volume management per Nephrology given end-stage renal disease. IV antibiotics per primary service. Ventilator management per Pulmonary. The patient's prognosis is poor. Thank you for this consult. We will continue to follow. Job#: [id number] EV MTDD
[2018-03-14 17:56] LABS: ANION GAP 19.7 mmol/L (8-16); CALCIUM 8.7 mg/dL (8.4-10.2); CREATININE, SERUM 6.04 mg/dL (0.57-1.11); POTASSIUM 3.7 mmol/L (3.5-5.1)
[2018-03-14] MEDS: ACETAMINOPHEN 325 MG TAB PO PRN (19:45)
[2018-03-14] MEDS ORDERED: CENTRAL TPN FORMULA IV SCH (20:00)
[2018-03-14] MEDS ORDERED: INSULIN DETEMIR 100 UNIT/ML PEN SQ SCH (21:00)
[2018-03-14] MEDS ORDERED: SODIUM CHLORIDE 0.9% 250ML 250 ML ONE (21:06)
[2018-03-15] VITALS (96 sets, daily range): BP systolic 64–203; BP diastolic 38–166
[2018-03-15] MEDS: INSULIN LISPRO 100 UNIT/1 ML 3ML VIAL SQ SCH ×3 (00:30→11:47)
[2018-03-15] MEDS: VANCOMYCIN 1GM/NS 250 ML 250 ML IV PRN (03:15)
[2018-03-15] MEDS: LORAZEPAM INJ 2 MG/ML VIAL IV PRN ×2 (03:15→18:30)
[2018-03-15] MEDS: LEVOTHYROXINE SODIUM 50 MCG TAB PO SCH (06:14)
--- NOTE | 2018-03-15 06:18 | Diagnostic Imaging Report ---
EXAM: CHEST SINGLE (PORTABLE), AP 1 view INDICATION: Intubated COMPARISON: AP view of the chest March 14, 2018 FINDINGS: LINES/TUBES: Stable endotracheal tube, nasogastric tube and subclavian central line LUNGS: No consolidations or edema. PLEURA: No effusions or pneumothorax. HEART AND MEDIASTINUM: Stable BONES AND SOFT TISSUES: No acute findings. IMPRESSION: No interval change Signed by: Dr. Nyasia Cuellar M.D. on 03/15/2018 6:15 AM
[2018-03-15 06:41] LABS: ANION GAP 16.4 mmol/L (8-16); CALCIUM 9.5 mg/dL (8.4-10.2); CREATININE, SERUM 4.23 mg/dL (0.57-1.11); POTASSIUM 3.4 mmol/L (3.5-5.1)
[2018-03-15] MEDS: AMLODIPINE BESYLATE 5 MG TAB PO SCH (09:00)
[2018-03-15] MEDS: MEROPENEM 500 MG VIAL IV SCH ×2 (09:00→21:20)
[2018-03-15] MEDS: CARVEDILOL 12.5 MG TAB PO SCH ×2 (09:00→18:00)
[2018-03-15] MEDS: PANTOPRAZOLE 40 MG 10ML VIAL IV SCH (09:00)
[2018-03-15] MEDS: LEVETIRACETAM ORAL SOLUTION 500 MG/5 ML SOLN NG SCH ×2 (09:00→21:20)
[2018-03-15] MEDS: FUROSEMIDE 40 MG TAB PO SCH ×2 (09:00→18:00)
[2018-03-15] MEDS ORDERED: CARVEDILOL 12.5 MG TAB ONE (09:22)
[2018-03-15] MEDS ORDERED: INSULIN REGULAR, HUMAN 100 UNIT/1 ML 3ML VIAL SQ SCH ×2 (11:30→21:00)
[2018-03-15] MEDS: FLUCONAZOLE 200 MG/100 ML 50 ML IV SCH (11:40)
[2018-03-15] MEDS: INSULIN DETEMIR 100 UNIT/ML PEN SQ SCH ×2 (11:40→21:20)
[2018-03-15 11:46] LABS: ABG HCO3 26 mmol/L (23-28); ABG PCO2 33 mmHg (41-51); ABG PO2 134 mmHg (80-105)
--- NOTE | 2018-03-15 13:24 | Progress Note ---
DATE: March 15, 2018 CARDIOLOGY PROGRESS NOTE SUBJECTIVE: Patient remains intubated and nonresponsive. OBJECTIVE VITAL SIGNS: Temperature 99.8 degrees, pulse 75, respiratory rate 12, blood pressure 133/58, oxygen saturation 100% on mechanical ventilation. GENERAL: Intubated, not responsive. A well-developed, well-nourished woman in no acute distress. LUNGS: Clear to auscultation bilaterally. No wheezes or crackles. CARDIOVASCULAR: Normal rate, regular rhythm. Systolic murmur. Normal S1 and S2. ABDOMEN: Soft, nontender. EXTREMITIES: No edema. CARDIAC MEDICATIONS 1. Amlodipine 5 mg p.o. daily. 2. Lasix 40 mg p.o. b.i.d. 3. Carvedilol 25 mg p.o. b.i.d. 4. Levothyroxine 50 mcg p.o. daily. LABS: Sodium 139, potassium 3.4, chloride 101, CO2 25, BUN 43, creatinine 4.23. BNP 345.3. TELEMETRY: Normal sinus rhythm. IMPRESSION 1. Status post pulseless electrical activity arrest. 2. Hypoxic brain injury. 3. Gallstone pancreatitis, status post laparoscopic cholecystectomy. 4. Hemoperitoneum suggested by computed tomography abdomen and pelvis. 5. Acute anemia, status post transfusion, now stable. 6. Coronary artery disease, status post 5-vessel coronary artery bypass graft in 2016. 7. End-stage renal disease, on hemodialysis. 8. Diabetes mellitus. 9. Hyperlipidemia. 10. Hypothyroidism. 11. Mild right ventricular dysfunction. 12. Hypertension. 13. Elevated troponin, likely demand ischemia due to cardiac arrest. 14. Elevated liver function tests, suspect shock liver. 15. Metabolic acidosis, improved. 16. Acute respiratory failure, requiring mechanical ventilation. RECOMMENDATIONS: Continue current cardiac medications. Due to patient's acute anemia, antiplatelet therapy was discontinued. BNP is elevated but improved from prior. Volume management per Nephrology given end-stage renal disease. Given her RV dysfunction, she will not tolerate significant hypervolemia. Attempt to keep patient euvolemic. IV antibiotics per primary service. Ventilator management per Pulmonary. The patient's prognosis is poor. Thank you for this consult. We will continue to follow. Job#: [id number] EV
[2018-03-15] MEDS ORDERED: INSULIN REGULAR, HUMAN 100 UNIT/1 ML 3ML VIAL IV SCH (17:30)
[2018-03-15] MEDS ORDERED: DEXTROSE 50% SYRINGE 50 ML IV PRN ×2 (17:45)
[2018-03-15] MEDS ORDERED: CENTRAL TPN FORMULA IV SCH (20:00)
[2018-03-15] MEDS ORDERED: SODIUM CHLORIDE 0.9% 250ML 250 ML ONE (20:31)
[2018-03-16] VITALS (98 sets, daily range): BP systolic 82–148; BP diastolic 38–97
[2018-03-16] MEDS: INSULIN REGULAR, HUMAN 100 UNIT/1 ML 3ML VIAL SQ SCH ×4 (00:15→17:35)
[2018-03-16] MEDS: LORAZEPAM INJ 2 MG/ML VIAL IV PRN (00:15)
[2018-03-16] MEDS: ACETAMINOPHEN 325 MG TAB PO PRN (00:35)
--- NOTE | 2018-03-16 06:17 | Diagnostic Imaging Report ---
EXAM: CHEST SINGLE (PORTABLE), AP 1 view INDICATION: Ventilated COMPARISON: AP view of the chest March 15, 2018 FINDINGS: LINES/TUBES: Stable endotracheal tube, nasal/orogastric tube and right internal jugular vein central line. LUNGS: No consolidations or edema. Subsegmental bibasilar atelectasis. PLEURA: No effusions or pneumothorax. HEART AND MEDIASTINUM: Stable appearance BONES AND SOFT TISSUES: No acute findings. IMPRESSION: No interval change. Signed by: Dr. Nyasia Cuellar M.D. on 03/16/2018 6:13 AM
[2018-03-16] MEDS: LEVOTHYROXINE SODIUM 50 MCG TAB PO SCH (06:30)
[2018-03-16 06:34] LABS: BASOPHILS % 0.3 % (0.0-1.0); EOSINOPHILS # (AUTO) 0.4 (0.0-0.4); EOSINOPHILS % 2.6 % (0.0-6.0); HEMATOCRIT 29.3 % (34.2-44.1); HEMOGLOBIN 9.4 g/dL (12.0-16.0); LYMPHOCYTES # (AUTO) 1.8 (1.0-3.2); LYMPHOCYTES % 12.1 % (18.0-39.1); MEAN CORPUSCULAR HEMOGLOBIN 29.4 pg (28-32); MEAN CORPUSCULAR HGB CONC 32.1 g/dL (31-35); MEAN CORPUSCULAR VOLUME 91.6 fL (81-99); MONOCYTES # (AUTO) 1.3 (0.2-0.8); MONOCYTES % 9.1 % (4.4-11.3); NEUTROPHILS # (AUTO) 10.9 (2.1-6.9); NEUTROPHILS % 74.5 % (38.7-80.0); PLATELET COUNT 304 x10e3/uL (140-360); RED CELL DISTRIBUTION WIDTH 17.1 % (11.7-14.4)
[2018-03-16 06:51] LABS: INR 1.33; PROTHROMBIN TIME 15.5 seconds (11.9-14.5)
[2018-03-16 06:52] LABS: PARTIAL THROMBOPLASTIN TIME 30.3 seconds (23.8-35.5)
[2018-03-16 07:18] LABS: ALBUMIN 2.8 g/dL (3.5-5.0); ALBUMIN/GLOBULIN RATIO 0.8 (0.8-2.0); ANION GAP 19.1 mmol/L (8-16); CALCIUM 9.2 mg/dL (8.4-10.2); CREATININE, SERUM 6.49 mg/dL (0.57-1.11); POTASSIUM 3.1 mmol/L (3.5-5.1)
[2018-03-16 07:37] LABS: AMYLASE 369 U/L (25-125); LIPASE 414 U/L (8-78)
[2018-03-16 08:19] LABS: MAGNESIUM 3.1 MG/DL (1.3-2.1); PHOSPHORUS 3.5 MG/DL (2.3-4.7)
[2018-03-16] MEDS: CARVEDILOL 12.5 MG TAB PO SCH ×2 (09:00→17:00)
[2018-03-16] MEDS: FUROSEMIDE 40 MG TAB PO SCH ×2 (09:00→17:00)
[2018-03-16] MEDS: AMLODIPINE BESYLATE 5 MG TAB PO SCH (09:00)
[2018-03-16] MEDS: PANTOPRAZOLE 40 MG 10ML VIAL IV SCH (10:16)
[2018-03-16] MEDS: MEROPENEM 500 MG VIAL IV SCH ×2 (10:16→21:10)
[2018-03-16] MEDS: LEVETIRACETAM ORAL SOLUTION 500 MG/5 ML SOLN NG SCH ×2 (10:16→21:10)
[2018-03-16] MEDS: INSULIN DETEMIR 100 UNIT/ML PEN SQ SCH ×2 (10:17→21:20)
[2018-03-16] MEDS: FLUCONAZOLE 200 MG/100 ML 50 ML IV SCH (10:17)
[2018-03-16] MEDS ORDERED: POTASSIUM CHLORIDE 20MEQ/100ML 200 ML IV ONE (10:30)
--- NOTE | 2018-03-16 14:05 | Progress Note ---
DATE: March 16, 2018 CARDIOLOGY PROGRESS NOTE SUBJECTIVE: Patient remains intubated. She is not responsive. OBJECTIVE VITAL SIGNS: Temperature 98.4 degrees, pulse 71, respiratory rate 14, blood pressure 100/47. Oxygen saturation is 100% on mechanical ventilation. GENERAL: Intubated, not responsive. LUNGS: Clear to auscultation bilaterally. No wheezes or crackles. CARDIOVASCULAR: Normal rate, regular rhythm. Systolic murmur. Normal S1 and S2. ABDOMEN: Soft, nontender. EXTREMITIES: No edema. CARDIAC MEDICATIONS 1. Levothyroxine 50 mcg p.o. daily. 2. Furosemide 40 mg p.o. b.i.d. 3. Carvedilol 25 mg p.o. b.i.d. 4. Amlodipine 5 mg p.o. daily. LABS: WBC 14.67, hemoglobin 9.4, hematocrit 29.3, platelets 304. Sodium 137, potassium 3.1, chloride 100, CO2 21, BUN 78, creatinine 6.49, amylase 369, lipase 414, AST 62, ALT 24. TELEMETRY: Normal sinus rhythm. IMPRESSION 1. Status post pulseless electrical activity arrest. 2. Hypoxic brain injury. 3. Gallstone pancreatitis, status post laparoscopic cholecystectomy. 4. Hemoperitoneum suggested by computed tomography abdomen and pelvis. 5. Acute anemia, status post transfusion, now stable. 6. Coronary artery disease, status post 5-vessel coronary artery bypass graft in 2016. 7. End-stage renal disease, on hemodialysis. 8. Diabetes mellitus. 9. Hyperlipidemia. 10. Hypothyroidism. 11. Mild right ventricular dysfunction. 12. Hypertension. 13. Elevated troponin, likely demand ischemia secondary to cardiac arrest. 14. Elevated liver function tests, suspect shock liver. 15. Acute respiratory failure, requiring mechanical ventilation. RECOMMENDATIONS: Continue current cardiac medications. Due to patient's acute anemia, antiplatelet therapy was discontinued. Volume management per nephrology given end-stage renal disease. Given her RV dysfunction, she will not tolerate significant hypervolemia. Attempt to keep patient euvolemic. IV antibiotics per primary service. Ventilator management per pulmonary. The patient's prognosis is poor. Thank you for this consult. We will continue to follow. Job#: [id number]
[2018-03-16] MEDS ORDERED: DEXTROSE 50% SYRINGE 50 ML IV PRN (17:15)
[2018-03-16] MEDS ORDERED: INSULIN LISPRO 100 UNIT/1 ML 3ML VIAL SQ SCH (21:00)
[2018-03-16] MEDS: CENTRAL TPN FORMULA 1 BAG IV SCH (21:10)
[2018-03-16] MEDS: VANCOMYCIN 1GM/NS 250 ML 250 ML IV PRN (23:00)
[2018-03-17] VITALS (91 sets, daily range): BP systolic 92–155; BP diastolic 42–85
[2018-03-17] MEDS: INSULIN LISPRO 100 UNIT/1 ML 3ML VIAL SQ SCH ×4 (00:10→18:22)
--- NOTE | 2018-03-17 05:51 | Diagnostic Imaging Report ---
CHEST SINGLE (PORTABLE), 03/17/2018 5:00 AM Technique: CHEST SINGLE (PORTABLE) Comparison: Previous day Clinical history: On ventilator Findings: See impression Impression: 1. Lines/tubes: ET tube 2.5 cm above the lizet. Stable subdiaphragmatic NG tube, and right IJ over the high right atrium. 2. Stable cardiomediastinal silhouette poststernotomy. 3. Stable linear bibasilar atelectasis. No effusion or pneumothorax. Signed by: Dr Nicole Blunt MD on 03/17/2018 5:47 AM
[2018-03-17 06:12] LABS: BASOPHILS # (AUTO) 0.1 (0.0-0.1); BASOPHILS % 0.3 % (0.0-1.0); EOSINOPHILS # (AUTO) 0.4 (0.0-0.4); EOSINOPHILS % 2.5 % (0.0-6.0); HEMATOCRIT 30.3 % (34.2-44.1); HEMOGLOBIN 9.7 g/dL (12.0-16.0); LYMPHOCYTES # (AUTO) 1.9 (1.0-3.2); LYMPHOCYTES % 12.1 % (18.0-39.1); MEAN CORPUSCULAR HEMOGLOBIN 29.3 pg (28-32); MEAN CORPUSCULAR VOLUME 91.5 fL (81-99); MONOCYTES # (AUTO) 1.3 (0.2-0.8); MONOCYTES % 8.6 % (4.4-11.3); NEUTROPHILS # (AUTO) 11.5 (2.1-6.9); NEUTROPHILS % 75.3 % (38.7-80.0); PLATELET COUNT 354 x10e3/uL (140-360); RED BLOOD COUNT 3.31 x10e6/uL (3.6-5.1); RED CELL DISTRIBUTION WIDTH 17.4 % (11.7-14.4)
[2018-03-17] MEDS: LEVOTHYROXINE SODIUM 50 MCG TAB PO SCH (06:19)
[2018-03-17 06:50] LABS: ALBUMIN/GLOBULIN RATIO 0.8 (0.8-2.0); ANION GAP 17.7 mmol/L (8-16); CALCIUM 9.2 mg/dL (8.4-10.2); CREATININE, SERUM 4.24 mg/dL (0.57-1.11); MAGNESIUM 2.7 MG/DL (1.3-2.1); PHOSPHORUS 2.2 MG/DL (2.3-4.7); POTASSIUM 3.7 mmol/L (3.5-5.1)
[2018-03-17] MEDS: MEROPENEM 500 MG VIAL IV SCH ×2 (08:06→21:55)
[2018-03-17] MEDS: COLLAGENASE OINTMENT 30 GM TUBE TP SCH (08:11)
[2018-03-17] MEDS: PANTOPRAZOLE 40 MG 10ML VIAL IV SCH (08:11)
[2018-03-17] MEDS: FUROSEMIDE 40 MG TAB PO SCH ×2 (08:11→17:00)
[2018-03-17] MEDS: LEVETIRACETAM ORAL SOLUTION 500 MG/5 ML SOLN NG SCH ×2 (08:11→21:55)
[2018-03-17] MEDS: AMLODIPINE BESYLATE 5 MG TAB PO SCH (08:11)
[2018-03-17] MEDS: INSULIN DETEMIR 100 UNIT/ML PEN SQ SCH ×2 (08:43→21:58)
[2018-03-17] MEDS: CARVEDILOL 12.5 MG TAB PO SCH ×2 (09:00→17:00)
--- NOTE | 2018-03-17 16:35 | Progress Note ---
DATE: March 17, 2018 CARDIOLOGY PROGRESS NOTE SUBJECTIVE: The patient remains intubated. Her eyes are open but she did not interact. However, staff reports the patient may be having some intermittent purposeful movement. OBJECTIVE VITAL SIGNS: Temperature 99.8 degrees, pulse 94, respiratory rate 17, blood pressure 123/55, oxygen saturation 100% on mechanical ventilation. GENERAL: Intubated, awake, not interactive. LUNGS: Clear to auscultation bilaterally. No wheezes or crackles. CARDIOVASCULAR: Normal rate, regular rhythm. Systolic murmur. Normal S1 and S2. ABDOMEN: Soft, nontender. EXTREMITIES: No edema. CARDIAC MEDICATIONS 1. Levothyroxine 50 mcg p.o. daily. 2. Carvedilol 25 mg p.o. b.i.d. 3. Amlodipine 5 mg p.o. daily. 4. Lasix 40 mg p.o. b.i.d. LABS: WBC 15.31, hemoglobin 9.7, hematocrit 30.3, platelets 354,000, sodium 140, potassium 3.7, chloride 102, CO2 of 24, BUN 51, creatinine 4.24, AST 70, ALT 21, amylase 361, lipase 324. TELEMETRY: Normal sinus rhythm. IMPRESSION 1. Status post pulseless electrical activity arrest. 2. Hypoxic brain injury. 3. Gallstone pancreatitis, status post laparoscopic cholecystectomy. 4. Hemoperitoneum suggested by computed tomography abdomen and pelvis. 5. Acute anemia, status post transfusion, relatively stable although slightly lower today. 6. Coronary artery disease, status post 5-vessel coronary artery bypass graft. 7. End-stage renal disease, on hemodialysis. 8. Diabetes mellitus. 9. Hyperlipidemia. 10. Hypothyroidism. 11. Mild right ventricular dysfunction. 12. Hypertension. 13. Elevated troponin, likely demand ischemia secondary to cardiac arrest. 14. Elevated liver function tests, suspect shock liver, improve. 15. Acute respiratory failure, requiring mechanical ventilation. RECOMMENDATIONS: Continue current cardiac medications. Due to the patient's acute anemia, antiplatelet therapy was discontinued. Volume management per nephrology given end-stage renal disease. Given her RV dysfunction, she will not tolerate significant hypervolemia. Attempt to keep the patient euvolemic. IV antibiotics per primary service. Ventilator management per pulmonary. The patient's prognosis is poor. Thank you for this consult. We will continue to follow. Job#: [id number]
[2018-03-17] MEDS: CENTRAL TPN FORMULA 1 BAG IV SCH (20:00)
[2018-03-17] MEDS ORDERED: SODIUM CHLORIDE 0.9% 250ML 250 ML ONE (22:07)
[2018-03-18] VITALS (75 sets, daily range): BP systolic 86–150; BP diastolic 43–77
[2018-03-18] MEDS: INSULIN LISPRO 100 UNIT/1 ML 3ML VIAL SQ SCH ×4 (00:18→17:43)
[2018-03-18] MEDS: LEVOTHYROXINE SODIUM 50 MCG TAB PO SCH (05:40)
--- NOTE | 2018-03-18 05:48 | Diagnostic Imaging Report ---
CHEST SINGLE (PORTABLE), 03/18/2018 5:00 AM Technique: CHEST SINGLE (PORTABLE) Comparison: Previous day Clinical history: Ventilator Findings: See impression Impression: 1. Lines/tubes: ET tube 4 cm above the lizet. Stable subdiaphragmatic NG tube, and right CVC over the high right atrium. 2. Stable cardiomediastinal silhouette poststernotomy. 3. Stable linear bibasilar atelectasis. No effusion or pneumothorax. Signed by: Dr Nicole Blunt MD on 03/18/2018 5:45 AM
[2018-03-18 06:03] LABS: BASOPHILS # (AUTO) 0.1 (0.0-0.1); BASOPHILS % 0.3 % (0.0-1.0); EOSINOPHILS # (AUTO) 0.4 (0.0-0.4); EOSINOPHILS % 2.3 % (0.0-6.0); HEMATOCRIT 30.1 % (34.2-44.1); HEMOGLOBIN 9.8 g/dL (12.0-16.0); LYMPHOCYTES # (AUTO) 1.9 (1.0-3.2); LYMPHOCYTES % 11.9 % (18.0-39.1); MEAN CORPUSCULAR HEMOGLOBIN 29.4 pg (28-32); MEAN CORPUSCULAR HGB CONC 32.6 g/dL (31-35); MEAN CORPUSCULAR VOLUME 90.4 fL (81-99); MONOCYTES # (AUTO) 1.2 (0.2-0.8); MONOCYTES % 7.6 % (4.4-11.3); NEUTROPHILS # (AUTO) 12.2 (2.1-6.9); NEUTROPHILS % 76.8 % (38.7-80.0); PLATELET COUNT 381 x10e3/uL (140-360); RED BLOOD COUNT 3.33 x10e6/uL (3.6-5.1); RED CELL DISTRIBUTION WIDTH 17.2 % (11.7-14.4)
[2018-03-18 06:32] LABS: ALBUMIN/GLOBULIN RATIO 0.9 (0.8-2.0); CALCIUM 9.1 mg/dL (8.4-10.2); CREATININE, SERUM 6.14 mg/dL (0.57-1.11)
[2018-03-18 07:19] LABS: MAGNESIUM 2.6 MG/DL (1.3-2.1); PHOSPHORUS 3.9 MG/DL (2.3-4.7)
[2018-03-18] MEDS: LEVETIRACETAM ORAL SOLUTION 500 MG/5 ML SOLN NG SCH ×3 (09:00→20:48)
[2018-03-18] MEDS: PANTOPRAZOLE 40 MG 10ML VIAL IV SCH ×2 (09:00→16:10)
[2018-03-18] MEDS: COLLAGENASE OINTMENT 30 GM TUBE TP SCH ×2 (09:00→17:00)
[2018-03-18] MEDS: AMLODIPINE BESYLATE 5 MG TAB PO SCH ×2 (09:00→16:00)
[2018-03-18] MEDS: INSULIN DETEMIR 100 UNIT/ML PEN SQ SCH ×2 (09:00→20:57)
[2018-03-18] MEDS: FUROSEMIDE 40 MG TAB PO SCH ×2 (09:00→17:10)
[2018-03-18] MEDS: MEROPENEM 500 MG VIAL IV SCH ×3 (09:00→20:47)
[2018-03-18] MEDS: CARVEDILOL 12.5 MG TAB PO SCH ×2 (09:00→17:00)
[2018-03-18] MEDS ORDERED: DEXTROSE 5%/LACTATED RINGERS 1,000 ML IV ONE (09:36)
[2018-03-18] MEDS: EPOETIN ALFA 10000 UNIT/ML VIAL SC SCH (14:30)
--- NOTE | 2018-03-18 15:14 | Diagnostic Imaging Report ---
PROCEDURE: A single AP view of the chest. COMPARISON: Portable chest 03/18/2018. INDICATIONS: LIKE PLACEMENT FINDINGS: Lines/tubes: The right internal jugular temporary central venous catheter with tip projecting over the expected region of the right atrium. Endotracheal catheter with tip projecting over the expected region of the trachea, positioned 4 cm above the lizet. Enteric feeding catheter with tip projecting over the expected region of the gastric fundus. Lungs: The lungs are well inflated and clear. There is no evidence of pneumonia or pulmonary edema. Pleura: There is no pleural effusion or pneumothorax. Heart and mediastinum: The heart and the mediastinum are unremarkable. Bones: No acute bony abnormality. Median sternotomy wires. IMPRESSION: No acute radiographic abnormality. Dictated by: Cole Salguero M.D. on 03/18/2018 at 15:15 Electronically approved by: Cole Salguero M.D. on 03/18/2018 at 15:15
[2018-03-18] MEDS: VANCOMYCIN 1GM/NS 250 ML 250 ML IV PRN (16:30)
[2018-03-18] MEDS: CENTRAL TPN FORMULA 1 BAG IV SCH (20:00)
--- NOTE | 2018-03-18 21:54 | Progress Note ---
DATE: March 18, 2018 CARDIOLOGY PROGRESS NOTE SUBJECTIVE: Patient remains intubated. She was not responsive although staff reports she occasionally appears to follow commands. OBJECTIVE: VITAL SIGNS: Temperature 97.5 degrees, pulse 82, respiratory rate 15, blood pressure 110/51, oxygen saturation 100% on mechanical ventilation. GENERAL: Intubated, awake, but not interactive. LUNGS: Clear to auscultation bilaterally. No wheezes or crackles. CARDIOVASCULAR: Normal rate, regular rhythm. Systolic murmur. Normal S1, S2. ABDOMEN: Soft, nontender. EXTREMITIES: No edema. CARDIAC MEDICATIONS: 1. Furosemide 40 mg p.o. b.i.d. 2. Carvedilol 25 mg p.o. b.i.d. 3. Amlodipine 5 mg p.o. daily. 4. Levothyroxine 50 mcg p.o. daily. LABS: WBC 15.89, hemoglobin 9.8, hematocrit 30.1, platelets 381,000. Sodium 139, potassium 4, chloride 101, CO2 20, BUN 89, creatinine 6.14. AST 68, ALT 18, alk phos 178, amylase 377, lipase 344. TELEMETRY: Normal sinus rhythm. IMPRESSION: 1. Status post pulseless electrical activity arrest. 2. Hypoxic brain injury. 3. Gallstone pancreatitis, status post laparoscopic cholecystectomy. 4. Hemoperitoneum suggested by computerized tomography abdomen and pelvis. 5. Acute anemia, status post transfusion with relatively stable hemoglobin and hematocrit. 6. Coronary artery disease, status post 5-vessel coronary artery bypass graft. 7. End-stage renal disease, on hemodialysis. 8. Diabetes mellitus. 9. Hyperlipidemia. 10. Hypothyroidism. 11. Mild right ventricular dysfunction. 12. Hypertension. 13. Elevated troponin, likely demand ischemia secondary to cardiac arrest. 14. Elevated liver function tests, suspect shock liver, improved. 15. Acute respiratory failure, requiring mechanical ventilation. RECOMMENDATIONS: Continue current cardiac medications. Due to the patient's acute anemia, antiplatelet therapy was discontinued. Volume management per nephrology given end-stage renal disease. Given her RV dysfunction, she will not tolerate significant hypervolemia, attempt to keep patient euvolemic. IV antibiotics per primary service. Patient is tentatively planned for tracheostomy and PEG insertion on Friday. Note plan to exchange central line due to continued leukocytosis and fever. The patient's prognosis is poor. Thank you for this consult. We will continue to follow. Job#: [id number]
[2018-03-19] VITALS (48 sets, daily range): BP systolic 91–130; BP diastolic 42–92
[2018-03-19] MEDS: INSULIN LISPRO 100 UNIT/1 ML 3ML VIAL SQ SCH ×4 (01:00→23:45)
[2018-03-19] MEDS: LEVOTHYROXINE SODIUM 50 MCG TAB PO SCH (06:08)
[2018-03-19 06:10] LABS: BASOPHILS # (AUTO) 0.1 (0.0-0.1); BASOPHILS % 0.4 % (0.0-1.0); EOSINOPHILS # (AUTO) 0.3 (0.0-0.4); EOSINOPHILS % 1.7 % (0.0-6.0); HEMATOCRIT 29.2 % (34.2-44.1); HEMOGLOBIN 9.6 g/dL (12.0-16.0); MEAN CORPUSCULAR HEMOGLOBIN 29.6 pg (28-32); MEAN CORPUSCULAR HGB CONC 32.9 g/dL (31-35); MEAN CORPUSCULAR VOLUME 90.1 fL (81-99); MONOCYTES # (AUTO) 1.3 (0.2-0.8); MONOCYTES % 8.4 % (4.4-11.3); NEUTROPHILS # (AUTO) 11.3 (2.1-6.9); NEUTROPHILS % 75.4 % (38.7-80.0); PLATELET COUNT 342 x10e3/uL (140-360); RED BLOOD COUNT 3.24 x10e6/uL (3.6-5.1); RED CELL DISTRIBUTION WIDTH 17.2 % (11.7-14.4)
--- NOTE | 2018-03-19 06:12 | Diagnostic Imaging Report ---
CHEST SINGLE (PORTABLE), 03/19/2018 5:00 AM Technique: CHEST SINGLE (PORTABLE) Comparison: Previous day Clinical history: On ventilator Findings: See impression Impression: 1. Lines/tubes: Stable ET tube, subdiaphragmatic NG tube, and right CVC over the high right atrium. 2. Stable cardiomediastinal silhouette poststernotomy. 3. Stable linear bibasilar atelectasis. No effusion or pneumothorax. Signed by: Dr Nicole Blunt MD on 03/19/2018 6:08 AM
[2018-03-19 06:35] LABS: ALBUMIN 2.9 g/dL (3.5-5.0); ALBUMIN/GLOBULIN RATIO 0.8 (0.8-2.0); ANION GAP 20.4 mmol/L (8-16); CALCIUM 8.7 mg/dL (8.4-10.2); CREATININE, SERUM 5.18 mg/dL (0.57-1.11); POTASSIUM 4.4 mmol/L (3.5-5.1)
[2018-03-19] MEDS: LEVETIRACETAM ORAL SOLUTION 500 MG/5 ML SOLN NG SCH ×2 (09:00→20:46)
[2018-03-19] MEDS: CARVEDILOL 12.5 MG TAB PO SCH ×2 (09:00→18:05)
[2018-03-19] MEDS: FUROSEMIDE 40 MG TAB PO SCH ×2 (09:00→18:05)
[2018-03-19] MEDS: MEROPENEM 500 MG VIAL IV SCH ×2 (09:00→20:46)
[2018-03-19] MEDS: INSULIN DETEMIR 100 UNIT/ML PEN SQ SCH ×2 (09:00→20:47)
[2018-03-19] MEDS ORDERED: MEROPENEM 500 MG VIAL ONE (09:16)
--- NOTE | 2018-03-19 12:55 | Progress Note ---
DATE: March 19, 2018 CARDIOLOGY PROGRESS NOTE SUBJECTIVE: The patient remains intubated. She is not responsive. OBJECTIVE VITAL SIGNS: Temperature 99.9 degrees, pulse 76, respiratory rate 14, blood pressure 96/47, oxygen saturation 99% on mechanical ventilation. GENERAL: Well-developed, well-nourished woman, awake, but not interactive. Remains intubated. LUNGS: Clear to auscultation bilaterally. No wheezes or crackles. CARDIOVASCULAR: Normal rate, regular rhythm. Systolic murmur. Normal S1, S2. ABDOMEN: Soft, nontender. EXTREMITIES: No edema. CARDIAC MEDICATIONS 1. Furosemide 40 mg p.o. b.i.d. 2. Carvedilol 25 mg p.o. b.i.d. 3. Levothyroxine 50 mcg p.o. daily. 4. Amlodipine 5 mg p.o. daily. LABS: WBC 15.02, hemoglobin 9.6, hematocrit 29.2, platelets 342. Sodium 135, potassium 4.4, chloride 95, CO2 of 24, BUN 79, creatinine 5.18. TELEMETRY: Normal sinus rhythm. IMPRESSION 1. Status post pulseless electrical activity arrest. 2. Hypoxic brain injury. 3. Gallstone pancreatitis, status post laparoscopic cholecystectomy. 4. Hemoperitoneum suggested by CT abdomen and pelvis. 5. Acute anemia, status post transfusion with relatively stable hemoglobin and hematocrit. 6. Coronary artery disease, status post 5-vessel coronary artery bypass graft. 7. End-stage renal disease, on hemodialysis. 8. Diabetes mellitus. 9. Hyperlipidemia. 10. Hypothyroidism. 11. Mild right ventricular dysfunction. 12. Hypertension. 13. Elevated troponin, likely demand ischemia secondary to cardiac arrest. 14. Elevated liver function tests, suspect shocked liver, improved. 15. Acute respiratory failure, requiring mechanical ventilation. RECOMMENDATIONS: Continue current cardiac medications. Antiplatelet therapy was discontinued due to acute anemia. Hold as planned for further procedures. Volume management per nephrology given end-stage renal disease. Given her RV dysfunction, she will not tolerate significant hypervolemia. Attempt to keep patient euvolemic. IV antibiotics per primary service. The patient's prognosis is poor. Thank you for this consult. We will continue to follow. Job#: [id number] VAS
--- NOTE | 2018-03-19 13:24 | Diagnostic Imaging Report ---
PROCEDURE:ULTRASOUND GUIDANCE FOR VASCULAR ACCESS COMPARISON:Central line placement 03/06/2018. INDICATIONS:CENTRAL LINE CATHETER PLACEMENT FINDINGS:Right internal jugular vein is noted to be patent. Ultrasound guidance was utilized for access for central venous catheter placement. CONCLUSION: Patent right internal jugular vein. Successful ultrasound guidance for central venous catheter placement. Dictated by: Cole Salguero M.D. on 03/19/2018 at 13:24 Electronically approved by: Cole Salguero M.D. on 03/19/2018 at 13:24
--- NOTE | 2018-03-19 13:27 | Diagnostic Imaging Report ---
PROCEDURE:NON-TUNNELLED CVC CATH PLACMNT COMPARISON:None. INDICATIONS: CENTRAL LINE PLACEMENT COMPLICATIONS: None. MEDICATIONS: None. BLOOD LOSS: Less than 2 cc. PROCEDURE: The procedure was performed at the bedside in the intensive care unit. Focused sonographic evaluation demonstrated a patent compressible right internal jugular vein. The right neck was prepped and draped in usual sterile fashion. 1% lidocaine was infused into subcutaneous tissues for local anesthesia. Utilizing direct sonographic guidance, the right internal jugular vein was cannulated with a 21 gauge needle. A 0.018 inch wire was advanced centrally. An access sheath was placed over the wire to secure the vascular access. The wire was upsized to a 0.035 inch wire. A dilation was performed over the wire. A triple lumen temporary central venous catheter was advanced over the wire. The wire was removed. The catheter lumens demonstrated appropriate function with aspiration and flush of sterile saline. The catheter lumens were flushed with sterile saline. The catheter was secured to the skin with 3-0 Ethilon sutures. A sterile dressing was applied. There were no immediate palpitations. The patient tolerated the procedure well. The patient remained in the intensive care unit in unchanged condition. A portable chest radiograph was ordered to confirm proper position of the central venous catheter. CONCLUSION: Successful placement of a right internal jugular temporary central venous catheter utilizing ultrasound guidance. Dictated by: Cole Salguero M.D. on 03/19/2018 at 13:28 Electronically approved by: Cole Salguero M.D. on 03/19/2018 at 13:28
[2018-03-19] MEDS ORDERED: INSULIN LISPRO 100 UNIT/1 ML 3ML VIAL SQ STA (17:44)
[2018-03-19] MEDS ORDERED: DEXTROSE 50% SYRINGE 50 ML IV PRN ×2 (18:00→18:15)
[2018-03-19] MEDS ORDERED: INSULIN LISPRO 100 UNIT/1 ML 3ML VIAL SQ ONE (18:01)
[2018-03-20] VITALS (91 sets, daily range): BP systolic 67–141; BP diastolic 39–107
[2018-03-20] MEDS: INSULIN LISPRO 100 UNIT/1 ML 3ML VIAL SQ SCH ×3 (05:26→16:30)
[2018-03-20] MEDS: LEVOTHYROXINE SODIUM 50 MCG TAB PO SCH ×2 (05:28→22:03)
--- NOTE | 2018-03-20 06:19 | Diagnostic Imaging Report ---
CHEST SINGLE (PORTABLE), 03/20/2018 5:00 AM Technique: CHEST SINGLE (PORTABLE) Comparison: Previous day Clinical history: On ventilator Findings: See impression Impression: 1. Lines/tubes: Stable ET tube, subdiaphragmatic NG tube, and right CVC over the high right atrium. 2. Stable cardiomediastinal silhouette poststernotomy. 3. Stable linear bibasilar atelectasis. No effusion or pneumothorax. Signed by: Dr Nicole Blunt MD on 03/20/2018 6:16 AM
[2018-03-20 06:23] LABS: BASOPHILS # (AUTO) 0.1 (0.0-0.1); BASOPHILS % 0.3 % (0.0-1.0); EOSINOPHILS # (AUTO) 0.4 (0.0-0.4); HEMATOCRIT 28.6 % (34.2-44.1); HEMOGLOBIN 9.5 g/dL (12.0-16.0); LYMPHOCYTES # (AUTO) 2.7 (1.0-3.2); LYMPHOCYTES % 15.2 % (18.0-39.1); MEAN CORPUSCULAR HEMOGLOBIN 29.7 pg (28-32); MEAN CORPUSCULAR HGB CONC 33.2 g/dL (31-35); MEAN CORPUSCULAR VOLUME 89.4 fL (81-99); MONOCYTES # (AUTO) 1.4 (0.2-0.8); MONOCYTES % 8.2 % (4.4-11.3); NEUTROPHILS # (AUTO) 12.8 (2.1-6.9); NEUTROPHILS % 73.2 % (38.7-80.0); PLATELET COUNT 340 x10e3/uL (140-360)
[2018-03-20 06:50] LABS: ALBUMIN 2.8 g/dL (3.5-5.0); ALBUMIN/GLOBULIN RATIO 0.7 (0.8-2.0); ANION GAP 25.7 mmol/L (8-16); CALCIUM 8.5 mg/dL (8.4-10.2); CREATININE, SERUM 6.82 mg/dL (0.57-1.11); POTASSIUM 4.7 mmol/L (3.5-5.1)
[2018-03-20] MEDS: LEVETIRACETAM ORAL SOLUTION 500 MG/5 ML SOLN NG SCH ×2 (09:00→20:36)
[2018-03-20] MEDS: INSULIN DETEMIR 100 UNIT/ML PEN SQ SCH ×2 (09:00→20:37)
[2018-03-20] MEDS: FUROSEMIDE 40 MG TAB PO SCH ×2 (09:00→17:00)
[2018-03-20] MEDS: CARVEDILOL 12.5 MG TAB PO SCH ×2 (09:00→17:00)
[2018-03-20] MEDS: AMLODIPINE BESYLATE 5 MG TAB PO SCH (09:00)
[2018-03-20] MEDS: COLLAGENASE OINTMENT 30 GM TUBE TP SCH (11:57)
[2018-03-20] MEDS: PANTOPRAZOLE 40 MG 10ML VIAL IV SCH (11:57)
[2018-03-20] MEDS ORDERED: MEROPENEM 500 MG VIAL IV SCH (12:00)
[2018-03-20] MEDS ORDERED: MEROPENEM 500MG 500 MG in SODIUM CHLORIDE 0.9% 50ML 50 ML IV SCH (12:15)
[2018-03-20] MEDS: MEROPENEM 500 MG VIAL IV SCH ×3 (13:16→20:49)
[2018-03-20] MEDS ORDERED: BUPIVACAINE 0.25%/EPI 30ML SDV INJ ONE (13:24)
--- NOTE | 2018-03-20 14:18 | Progress Note ---
DATE: March 20, 2018 CARDIOLOGY PROGRESS NOTE SUBJECTIVE: The patient remains intubated. She is awake, but does not interact. She was seen in the middle of hemodialysis. Planned for PEG and trach today. OBJECTIVE VITAL SIGNS: Temperature 98.1 degrees, pulse 80, respiratory rate 18, blood pressure 129/57, oxygen saturation 99% on mechanical ventilation. GENERAL: Well-developed, well-nourished woman in no acute distress. LUNGS: Clear to auscultation bilaterally. No wheezes or crackles. CARDIOVASCULAR: Normal rate, regular rhythm. Systolic murmur. Normal S1, S2. ABDOMEN: Soft, nontender. EXTREMITIES: No edema. CARDIAC MEDICATIONS 1. Lasix 40 mg p.o. b.i.d. 2. Carvedilol 25 mg p.o. b.i.d. 3. Amlodipine 5 mg p.o. daily. 4. Levothyroxine 50 mcg p.o. daily. LABS: WBC 17.47, hemoglobin 9.5, hematocrit 28.6, platelets 340. Sodium 135, potassium 4.7, chloride 93, CO2 21, BUN 121, creatinine 6.82. Amylase 397, lipase 430. TELEMETRY: Normal sinus rhythm. IMPRESSION 1. Status post pulseless electrical activity arrest. 2. Anoxic ischemic brain injury. 3. Gallstone pancreatitis, status post laparoscopic cholecystectomy. 4. Hemoperitoneum suggested by CT abdomen and pelvis. 5. Acute anemia, status post transfusion with relatively stable hemoglobin and hematocrit. 6. Coronary artery disease, status post 5-vessel coronary artery bypass graft. 7. End-stage renal disease, on hemodialysis. 8. Diabetes mellitus. 9. Hyperlipidemia. 10. Hypothyroidism. 11. Mild right ventricular dysfunction. 12. Hypertension. 13. Elevated troponin, likely demand ischemia secondary to cardiac arrest. 14. Elevated liver function tests, suspect shock liver, improving. 15. Acute respiratory failure, requiring mechanical ventilation. RECOMMENDATIONS: Continue current cardiac medications. Antiplatelet therapy was discontinued due to acute anemia. Continue holding as she is planned for trach and PEG today. Volume management per nephrology given end-stage renal disease. Given her RV dysfunction, she will not tolerate significant hypervolemia. Attempt to keep patient euvolemic. IV antibiotics per primary service. The patient's prognosis is poor. Thank you for this consult. We will continue to follow. Job#: [id number]
[2018-03-20] MEDS ORDERED: LIDOCAINE HCL 1% 30ML-PF VIAL ONE (15:18)
[2018-03-20] MEDS ORDERED: MIDAZOLAM HCL 2 MG/2 ML VIAL ONE (17:35)
[2018-03-20] MEDS ORDERED: FENTANYL CITRATE/PF 100MCG/2 ML INJ ONE (17:35)
[2018-03-20] MEDS: EPOETIN ALFA 10000 UNIT/ML VIAL SC SCH (18:23)
--- NOTE | 2018-03-20 19:53 | Operative Report ---
DATE OF PROCEDURE: March 20, 2018 REFERRING PHYSICIAN: Dr. Jarrell Meyers. PROCEDURE PERFORMED: Esophagogastroduodenoscopy and PEG tube placement. INDICATIONS FOR PROCEDURE: Dysphagia, respiratory failure on ventilator, and nasogastric tube feeding dependent. MEDICATION: The patient was done under general endotracheal anesthesia. Please see anesthesiologist note. PROCEDURE: With the patient in the supine position and after adequate induction of general endotracheal anesthesia, the flexible fiberoptic Olympus gastroscope was introduced into the esophagus under direct visualization without any difficulty. There was some patchy erythema noted in the distal esophagus. The scope was then advanced with ease into the stomach and mucosa overlying the antrum and the body revealed some patchy erythema. The pylorus was of normal contour and shape. Was intubated with ease and the scope was advanced all the way to the 2nd portion of the duodenum. The scope was then withdrawn slowly. Mucosa overlying the proximal 2nd portion and the duodenal bulb appeared to be within normal limits. The scope was then withdrawn back into the stomach and retroflexed. Mucosa overlying the fundus and the cardia appeared to be within normal limits. The scope was then straightened out and after delineation of a safe entry point through external digital palpation and trans abdominal illumination, PEG tube placement was carried out in the usual fashion. The scope was subsequently withdrawn after documenting a good positioning of the intragastric bumper. Patient tolerated the procedure well. IMPRESSION: 1. Distal esophagitis. 2. Gastritis. 3. PEG tube placement carried out in the usual fashion. Patient tolerated the procedure well. PLAN: G-tube to drain to gravity times 24 hours in a Tovar bag and then can use. Job#: [id number] cc:JARRELL MEYERS MD cc:WALTER COYNE MD
[2018-03-20] MEDS: LATANOPROST(OPTH) 2.5 ML BTL OU SCH (20:58)
[2018-03-20] MEDS: MORPHINE SULFATE 2 MG/ML SYR IV PRN (20:59)
[2018-03-21] VITALS (28 sets, daily range): BP systolic 75–143; BP diastolic 42–68
[2018-03-21] MEDS: INSULIN LISPRO 100 UNIT/1 ML 3ML VIAL SQ SCH ×4 (00:14→18:00)
[2018-03-21] MEDS: MORPHINE SULFATE 2 MG/ML SYR IV PRN ×3 (01:09→23:59)
[2018-03-21 04:22] LABS: BASOPHILS # (AUTO) 0.1 (0.0-0.1); BASOPHILS % 0.3 % (0.0-1.0); EOSINOPHILS # (AUTO) 0.3 (0.0-0.4); EOSINOPHILS % 1.9 % (0.0-6.0); HEMATOCRIT 30.7 % (34.2-44.1); HEMOGLOBIN 10.1 g/dL (12.0-16.0); LYMPHOCYTES # (AUTO) 2.2 (1.0-3.2); LYMPHOCYTES % 15.2 % (18.0-39.1); MEAN CORPUSCULAR HEMOGLOBIN 29.8 pg (28-32); MEAN CORPUSCULAR HGB CONC 32.9 g/dL (31-35); MEAN CORPUSCULAR VOLUME 90.6 fL (81-99); MONOCYTES # (AUTO) 1.3 (0.2-0.8); MONOCYTES % 8.7 % (4.4-11.3); NEUTROPHILS # (AUTO) 10.6 (2.1-6.9); NEUTROPHILS % 72.9 % (38.7-80.0); PLATELET COUNT 350 x10e3/uL (140-360); RED BLOOD COUNT 3.39 x10e6/uL (3.6-5.1); RED CELL DISTRIBUTION WIDTH 17.3 % (11.7-14.4)
[2018-03-21 04:40] LABS: ALBUMIN 2.8 g/dL (3.5-5.0); ALBUMIN/GLOBULIN RATIO 0.7 (0.8-2.0); ANION GAP 21.4 mmol/L (8-16); CALCIUM 8.8 mg/dL (8.4-10.2); CREATININE, SERUM 4.9 mg/dL (0.57-1.11); POTASSIUM 4.4 mmol/L (3.5-5.1)
--- NOTE | 2018-03-21 06:53 | Diagnostic Imaging Report ---
CHEST SINGLE (PORTABLE), 03/21/2018 5:00 AM Technique: CHEST SINGLE (PORTABLE) Comparison: Previous day Clinical history: On ventilator Findings: See impression Impression: 1. Lines/tubes: Removal of NG tube. Removal of ET tube and placement of tracheostomy. Stable right CVC over the high right atrium. 2. Stable cardiomediastinal silhouette poststernotomy. 3. Stable linear bibasilar atelectasis. No effusion or pneumothorax. Signed by: Dr Nicole Blunt MD on 03/21/2018 6:50 AM
[2018-03-21] MEDS: PANTOPRAZOLE 40 MG 10ML VIAL IV SCH (09:00)
[2018-03-21] MEDS: CARVEDILOL 12.5 MG TAB PO SCH ×2 (09:00→17:00)
[2018-03-21] MEDS: COLLAGENASE OINTMENT 30 GM TUBE TP SCH (09:00)
[2018-03-21] MEDS: INSULIN DETEMIR 100 UNIT/ML PEN SQ SCH ×2 (09:00→20:26)
[2018-03-21] MEDS: AMLODIPINE BESYLATE 5 MG TAB PO SCH (09:00)
[2018-03-21] MEDS: FUROSEMIDE 40 MG TAB PO SCH ×2 (09:00→17:00)
[2018-03-21] MEDS: LEVETIRACETAM ORAL SOLUTION 500 MG/5 ML SOLN NG SCH ×2 (09:00→20:11)
[2018-03-21] MEDS: MEROPENEM 500 MG VIAL IV SCH ×2 (09:00→20:11)
--- NOTE | 2018-03-21 15:51 | Progress Note ---
DATE: March 21, 2018 INTERNAL MEDICINE PROGRESS NOTE She is alert and much more awake now. PHYSICAL EXAMINATION VITALS: Blood pressure 135/68, temperature 98.5, heart rate 85 per minute, respiratory rate is 16 per minute, oxygen saturation on trach collar is 99%. HEART: Regular rhythm. Normal S1 and S2 sounds. LUNGS: Showed decreased air sounds bilaterally. ABDOMEN: Soft. PEG tube in place. EXTREMITIES: Show no evidence of cyanosis, edema or trauma. BLOOD WORK: We have BMP with a sodium of 137, potassium 4.4, chloride 97, CO2 23, BUN 67, creatinine 4.9, glucose 72. On the CBC, white blood count 14.5, hemoglobin 10.1, hematocrit 30.7, and platelet count 350,000. PT 15.5, PTT 30.3 and INR 1.33. AST 66, ALT 10, total bilirubin 0.8, alkaline phosphatase 182. Chest x-ray showed no evidence of any infiltrate. FINAL IMPRESSION 1. Anoxic brain injury: Status post cardiac arrest. 2. Hypothyroidism. 3. Diabetes mellitus, type 2 with chronic renal insufficiency. 4. End-stage renal disease, on dialysis. 5. Anemia of chronic disease secondary to end-stage renal disease. 6. Myoclonus. 7. Chronic respiratory failure. 8. Hypertension with hypertensive nephropathy. 9. Coronary artery disease: Status post coronary artery bypass graft. PLAN OF TREATMENT: Continue Levophed as needed for systolic blood pressure greater than 90. Vancomycin 1 g IVPB on dialysis days on Friday, Friday and Friday. Continue levothyroxine 50 mcg daily. Albumin 25 g p.r.n. Collagenase daily . Morphine sulfate 2 mg IV q.4 h. as needed. Amlodipine 5 mg daily. Tylenol 325 mg IV q.6 h. s needed. Protonix 40 mg daily. Epogen 10,000 units on Friday, Friday and Friday for anemia of chronic disease. Continue monitoring blood sugar q.6 h. Continue Coreg 25 mg twice a day. Zofran 4 mg IV q.4 h. as needed. Keppra 500 mg twice a day. Continue with latanoprost eyedrops 1 drop to each eye at bedtime. Furosemide 40 mg twice a day. Mannitol as needed. Levemir 25 units twice a day. Meropenem 500 mg IVPB q.12 h. Labs have been reviewed. Vital signs have been reviewed. The case has been discussed with the family. Time spent 50 minutes. Job#: [id number] [place]
--- NOTE | 2018-03-21 17:19 | Progress Note ---
DATE: March 21, 2018 CARDIOLOGY PROGRESS NOTE SUBJECTIVE: Altered mental status; however, moving extremities. Follows with gaze. OBJECTIVE VITAL SIGNS: Temperature 98.7, heart rate 93, respiratory rate 16, blood pressure 137/56, and O2 sat 100% on trach collar. GENERAL: In no acute distress. CHEST: Decreased breath sounds. CARDIOVASCULAR: Regular rate and rhythm. Normal S1 and S2. ABDOMEN: Soft. EXTREMITIES: No edema. CARDIOVASCULAR MEDICATIONS: Amlodipine 5 mg daily, furosemide 40 mg b.i.d., and carvedilol 25 mg b.i.d., on antibiotics vancomycin meropenem. STUDIES: Reviewed. White blood cells 14.5, hemoglobin 10.1, and platelets 351. Creatinine 4.9, potassium 4.4, and glucose 101. TELEMETRY: In sinus rhythm. ASSESSMENT 1. Status post pulseless electrical activity with hypoxic brain injury/encephalopathy. 2. Gallstone pancreatitis, status post laparoscopic cholecystectomy. 3. Hemoperitoneum suggested by CT abdomen and pelvis. 4. Acute anemia, status post packed red blood cell transfusion; most recent stable H and H. 5. Coronary artery disease, status post 5-vessel bypass. 6. End-stage renal disease, on dialysis. 7. Diabetes. 8. Hypertension. 9. Dyslipidemia. 10. Mild right ventricular dysfunction. 11. Abnormal troponin. 12. Type 2 myocardial infarction in the setting of cardiac arrest. 13. Abnormal LFTs, suspected related to shock liver, improving. 14. Acute respiratory failure, requiring mechanical ventilation, now extubated, on trach collar. PLAN: Continue supportive management. Overall guarded prognosis. Encephalopathy remains a significant concern. Possible PEG tube and trach depending on continued recovery. Job#: [id number] PINO
[2018-03-21] MEDS: LATANOPROST(OPTH) 2.5 ML BTL OU SCH (20:11)
[2018-03-21] MEDS: ONDANSETRON HCL INJ 2 MG/ML VIAL IV PRN (20:11)
[2018-03-22] VITALS (29 sets, daily range): BP systolic 89–128; BP diastolic 41–93
[2018-03-22] MEDS: MORPHINE SULFATE 2 MG/ML SYR IV PRN ×2 (00:10→05:00)
[2018-03-22] MEDS: INSULIN LISPRO 100 UNIT/1 ML 3ML VIAL SQ SCH ×4 (00:11→18:00)
[2018-03-22 05:06] LABS: BASOPHILS # (AUTO) 0.1 (0.0-0.1); BASOPHILS % 0.3 % (0.0-1.0); EOSINOPHILS # (AUTO) 0.4 (0.0-0.4); HEMATOCRIT 31.9 % (34.2-44.1); HEMOGLOBIN 10.5 g/dL (12.0-16.0); LYMPHOCYTES # (AUTO) 1.8 (1.0-3.2); MEAN CORPUSCULAR HEMOGLOBIN 29.9 pg (28-32); MEAN CORPUSCULAR HGB CONC 32.9 g/dL (31-35); MEAN CORPUSCULAR VOLUME 90.9 fL (81-99); MONOCYTES # (AUTO) 1.2 (0.2-0.8); MONOCYTES % 7.9 % (4.4-11.3); NEUTROPHILS # (AUTO) 11.3 (2.1-6.9); NEUTROPHILS % 75.9 % (38.7-80.0); PLATELET COUNT 388 x10e3/uL (140-360); RED BLOOD COUNT 3.51 x10e6/uL (3.6-5.1); RED CELL DISTRIBUTION WIDTH 17.2 % (11.7-14.4)
[2018-03-22 05:26] LABS: ALBUMIN 2.6 g/dL (3.5-5.0); ALBUMIN/GLOBULIN RATIO 0.6 (0.8-2.0); ALKALINE PHOSPHATASE 206 IU/L (40-150); ANION GAP 23.5 mmol/L (8-16); BLOOD UREA NITROGEN 95 mg/dL (7-26); BUN/CREATININE RATIO 13 (6-25); CALCIUM 8.4 mg/dL (8.4-10.2); CARBON DIOXIDE 20 mmol/L (22-29); CHLORIDE 96 mmol/L (98-107); CREATININE, SERUM 7.13 mg/dL (0.57-1.11); EST GLOMERULAR FILTRATION RATE 6 ML/MIN (60-); GLUCOSE 282 mg/dL (74-118); POTASSIUM 4.5 mmol/L (3.5-5.1); SODIUM 135 mmol/L (136-145)
[2018-03-22 05:31] LABS: ALANINE AMINOTRANSFERASE < 6 IU/L (0-55)
[2018-03-22] MEDS: COLLAGENASE OINTMENT 30 GM TUBE TP SCH (06:21)
[2018-03-22] MEDS: LEVOTHYROXINE SODIUM 50 MCG TAB PO SCH (06:21)
[2018-03-22] MEDS: CARVEDILOL 12.5 MG TAB PO SCH ×2 (09:00→17:00)
[2018-03-22] MEDS: LEVETIRACETAM ORAL SOLUTION 500 MG/5 ML SOLN NG SCH ×2 (09:00→20:40)
[2018-03-22] MEDS: MEROPENEM 500 MG VIAL IV SCH ×2 (09:00→20:40)
[2018-03-22] MEDS: PANTOPRAZOLE 40 MG 10ML VIAL IV SCH (09:00)
[2018-03-22] MEDS: INSULIN DETEMIR 100 UNIT/ML PEN SQ SCH ×2 (09:00→20:44)
[2018-03-22] MEDS: FUROSEMIDE 40 MG TAB PO SCH ×2 (09:00→17:00)
[2018-03-22] MEDS: AMLODIPINE BESYLATE 5 MG TAB PO SCH (09:00)
--- NOTE | 2018-03-22 14:27 | Progress Note ---
DATE: March 22, 2018 CARDIOLOGY PROGRESS NOTE SUBJECTIVE: Fatigued today. OBJECTIVE VITALS: Temperature 99.7, heart rate 69, respiratory rate 20, blood pressure 119/54, O2 sat 94% on trach collar. GENERAL: In no acute distress. Tracks with gaze. However, currently nonverbal. Tracheostomy with trach collar. CHEST: With coarse breath sounds. CARDIOVASCULAR: Regular rate and rhythm. Normal S1 and S2. Systolic ejection murmur. No S3. No S4. ABDOMEN: Soft. EXTREMITIES: No edema. CARDIOVASCULAR MEDICATIONS 1. Amlodipine 5 mg daily. 2. Furosemide 40 mg b.i.d. 3. Carvedilol 25 mg b.i.d. White blood cells 14.8, hemoglobin 10.5 and platelets 388,000. Sodium 135, potassium 4.5, chloride 96, bicarbonate 20, BUN 95, creatinine 0.1, glucose 224, calcium 8.4. AST 61, ALT less than 6, alk phos 206, total protein 6.9, albumin 2.6. Telemetry is sinus rhythm. ASSESSMENT 1. Status post pulseless electrical activity with hypoxic brain injury and encephalopathy. 2. Gallstone pancreatitis: Status post laparoscopic cholecystectomy. 3. Hemoperitoneum suggested by computerized tomography of the abdomen and pelvis. 4. Acute anemia: Status post packed red blood cell transfusion with stable H and H. 5. Coronary artery disease: Status post 5-vessel bypass. 6. End-stage renal disease, on dialysis. 7. Diabetes mellitus. 8. Hypertension. 9. Dyslipidemia. 10. Mild right ventricular dysfunction. 11. Abnormal troponin: Type II myocardial infarction in the setting of cardiac rest. 12. Abnormal liver function tests related to shock liver, improving. 13. Acute respiratory failure: Status post mechanical ventilatory support now. Extubated and on trach collar. RECOMMENDATIONS: Overall, guarded prognosis. Most recent blood cultures dated March 07, 2018, were negative. Possible transfer to [place] within the next 48 hours. Continue current cardiovascular medications. Job#: [id number] YE
[2018-03-22] MEDS: ALBUTEROL SULF 0.083% NEB SOLN 3 ML NEB NEB SCH ×2 (15:00→23:50)
--- NOTE | 2018-03-22 15:10 | Progress Note ---
DATE: March 22, 2018 INTERNAL MEDICINE PROGRESS NOTE She is slowly recovering mentally. PHYSICAL EXAMINATION VITALS: Blood pressure 119/54, temperature is 99.7, heart rate 69 per minute, respiratory rate is 20 per minute, oxygen saturation is 100% on trachea collar. HEART: Regular rhythm. Normal S1 and S2 sounds. LUNGS: Clear bilaterally. ABDOMEN: Soft. PEG tube placed. EXTREMITIES: Show no evidence of cyanosis or trauma. BLOOD WORK: We have a BMP with sodium 135, potassium 4.5, chloride 96, CO2 20, BUN 95, creatinine 7.13, glucose 282. On the CBC, white blood count 14.8, hemoglobin 10.5, hematocrit 31.9, and platelet count 388,000. PT 15.5, PTT 30.3, and INR 1.33. AST 61, ALT 6, total bilirubin 0.8, alkaline phosphatase 206. FINAL IMPRESSION 1. Chronic respiratory failure. 2. Anoxic encephalopathy. 3. End-stage renal disease, on dialysis. 4. Hypothyroidism. 5. Status post laparoscopic cholecystectomy. 6. Anemia of chronic disease. 7. Status post cardiac arrest. 8. Essential hypertension. PLAN OF TREATMENT: Continue with tracheal collar. Continue albuterol q.8 h. Continue vancomycin 1 g on Friday, Friday and Friday on dialysis days. Continue furosemide 40 mg twice a day. Levemir 25 units twice a day. Meropenem 500 mg IV twice a day. Continue levothyroxine 50 mcg daily. Continue collagenase daily. Continue morphine 2 mg IV q.4 h. as needed. Amlodipine 5 mg daily. Protonix 40 mg daily. Epogen 10,000 units on Friday, Friday and Friday for anemia of chronic disease. Continue monitoring blood sugar q.6 h. Continue carvedilol 25 mg twice a day. Zofran 4 mg q.4 h. as needed. Keppra 500 mg twice a day. for hypoglycemia. Latanoprost 1 drop to each eye at bedtime. She also has a diagnosis of uncontrolled diabetes mellitus, type 2 with end-stage renal disease. Case discussed with the family and nurse at the bedside. Time spent 60 minutes. Job#: [id number] [place]
[2018-03-22] MEDS: LATANOPROST(OPTH) 2.5 ML BTL OU SCH (20:40)
[2018-03-22] MEDS: ACETAMINOPHEN 325 MG TAB PO PRN (20:43)
[2018-03-22] MEDS ORDERED: IBUPROFEN 400 MG TAB PO PRN (23:15)
[2018-03-23] VITALS (43 sets, daily range): BP systolic 104–147; BP diastolic 49–118
[2018-03-23] MEDS: INSULIN LISPRO 100 UNIT/1 ML 3ML VIAL SQ SCH ×3 (00:37→11:41)
[2018-03-23 05:29] LABS: BASOPHILS # (AUTO) 0.1 (0.0-0.1); BASOPHILS % 0.5 % (0.0-1.0); EOSINOPHILS # (AUTO) 0.7 (0.0-0.4); EOSINOPHILS % 4.9 % (0.0-6.0); HEMATOCRIT 31.8 % (34.2-44.1); HEMOGLOBIN 10.4 g/dL (12.0-16.0); LYMPHOCYTES # (AUTO) 2.2 (1.0-3.2); LYMPHOCYTES % 14.7 % (18.0-39.1); MEAN CORPUSCULAR HEMOGLOBIN 29.6 pg (28-32); MEAN CORPUSCULAR HGB CONC 32.7 g/dL (31-35); MEAN CORPUSCULAR VOLUME 90.6 fL (81-99); MONOCYTES # (AUTO) 1.2 (0.2-0.8); MONOCYTES % 7.6 % (4.4-11.3); NEUTROPHILS # (AUTO) 10.8 (2.1-6.9); NEUTROPHILS % 70.7 % (38.7-80.0); PLATELET COUNT 374 x10e3/uL (140-360); RED BLOOD COUNT 3.51 x10e6/uL (3.6-5.1); RED CELL DISTRIBUTION WIDTH 17.2 % (11.7-14.4)
[2018-03-23 05:56] LABS: ALBUMIN 2.4 g/dL (3.5-5.0); ALBUMIN/GLOBULIN RATIO 0.5 (0.8-2.0); ALKALINE PHOSPHATASE 311 IU/L (40-150); AMYLASE 471 U/L (25-125); ANION GAP 28.2 mmol/L (8-16); BLOOD UREA NITROGEN 118 mg/dL (7-26); BUN/CREATININE RATIO 14 (6-25); CALCIUM 8.2 mg/dL (8.4-10.2); CARBON DIOXIDE 16 mmol/L (22-29); CHLORIDE 97 mmol/L (98-107); EST GLOMERULAR FILTRATION RATE 5 ML/MIN (60-); GLUCOSE 218 mg/dL (74-118); LIPASE 721 U/L (8-78); POTASSIUM 4.2 mmol/L (3.5-5.1); SODIUM 137 mmol/L (136-145)
[2018-03-23 06:14] LABS: ALANINE AMINOTRANSFERASE < 6 IU/L (0-55)
[2018-03-23] MEDS: LEVOTHYROXINE SODIUM 50 MCG TAB PO SCH (06:21)
--- NOTE | 2018-03-23 06:40 | Diagnostic Imaging Report ---
CHEST SINGLE (PORTABLE), 03/23/2018 5:00 AM Technique: CHEST SINGLE (PORTABLE) Comparison: Previous day, 03/20/2018, 03/16/2018 Clinical history: \S\on ventilator with persistent fevers \S\Y Findings: Artifact overlies the left lower lung. Impression: 1. Lines/Tubes: Stable tracheostomy and right IJ CVC over the high right atrium. 2. Stable cardiomediastinal silhouette status post sternotomy and CABG. 3. Persistent left greater than right bibasilar linear opacity, favor atelectasis. Signed by: Dr Nicole Blunt MD on 03/23/2018 6:36 AM
[2018-03-23] MEDS: ALBUTEROL SULF 0.083% NEB SOLN 3 ML NEB NEB SCH ×2 (07:09→15:40)
[2018-03-23] MEDS: FUROSEMIDE 40 MG TAB PO SCH ×2 (08:46→16:43)
[2018-03-23] MEDS: CARVEDILOL 12.5 MG TAB PO SCH ×2 (08:47→16:43)
[2018-03-23] MEDS: LEVETIRACETAM ORAL SOLUTION 500 MG/5 ML SOLN NG SCH (08:54)
[2018-03-23] MEDS: PANTOPRAZOLE 40 MG 10ML VIAL IV SCH (08:54)
[2018-03-23] MEDS: MEROPENEM 500 MG VIAL IV SCH (08:54)
[2018-03-23] MEDS: AMLODIPINE BESYLATE 5 MG TAB PO SCH (09:00)
[2018-03-23] MEDS: COLLAGENASE OINTMENT 30 GM TUBE TP SCH (09:11)
[2018-03-23] MEDS: INSULIN DETEMIR 100 UNIT/ML PEN SQ SCH (09:11)
--- NOTE | 2018-03-23 10:25 | Discharge Summary ---
ADMIT DIAGNOSES 1. Gallstone pancreatitis. 2. Chronic cholecystitis/biliary dyskinesia. 3. End-stage renal disease. 4. Type 2 diabetes mellitus. 5. Coronary artery disease (history of coronary artery bypass grafting in March of 2016). DISCHARGE DIAGNOSES 1. Status post cardiac arrest with successful resuscitation. 2. Status post laparoscopic cholecystectomy. 3. Status post gastrostomy tube placement. 4. Status post tracheostomy tube placement. 5. Pancreatitis, resolving. 6. Left lower lobe gram-negative connie pneumonia, resolving. 7. End-stage renal disease. 8. Type 2 diabetes mellitus. 9. Coronary artery disease (history of coronary artery bypass grafting in March of 2016). 10. [id number] diastolic congestive heart failure, resolving. 11. Hypertensive heart disease. 12. Stage 2 sacral deep tissue injury. 13. Unstageable eschar covered sacral wound. HOSPITAL COURSE: This is a 62-year-old woman who was initially admitted to [facility] with the diagnosis of gallstone pancreatitis with underlying chronic cholecystitis/biliary dyskinesia. During this hospitalization, the patient's gallstone pancreatitis resolved with supportive care. The decision was made to pursue laparoscopic cholecystectomy since the patient had recurrent bouts of gallstone pancreatitis. The surgery itself, namely laparoscopic cholecystectomy, was uneventful, but unfortunately she suffered cardiac arrest 8 hours after surgery. The full advance cardiac life support protocol was initiated, and the patient received chest compressions for a total of 37 minutes. The patient was successfully resuscitated. Initially, it was felt that the patient had significant anoxic brain injury. Thus, during this hospitalization the patient underwent tracheostomy tube placement, as well as G-tube placement. However, she was weaned off the ventilator. She did develop a stage 3 sacral decubitus ulcer during this hospitalization, as well as left lower lobe gram-negative connie pneumonia. The decision was made to transfer the patient to a long-term acute care facility where she could continue receiving aggressive respiratory care for her recent tracheostomy tube placement, as well as intravenous antibiotics for her left lower lobe pneumonia. Also, at this facility the patient can receive daily physician visits to manage her multiple medical comorbidities. The patient's condition on transfer was stable with an overall fair prognosis. DISCHARGE MEDICATIONS 1. Levemir insulin 30 units subcutaneous twice a day. 2. Pantoprazole 40 mg intravenous daily. 3. Keppra 250 mg per PEG tube b.i.d. 4. Albuterol nebulized treatments every 8 hours. 5. Levothyroxine 50 mcg daily. 6. Humalog insulin sliding scale. 7. Latanoprost 1 drop to each eye at night. 8. Amlodipine 5 mg daily. 9. Ondansetron 4 mg intravenous every 4 hours p.r.n. nausea and vomiting. 10. Epogen 10,000 units subcutaneous on Friday, Friday and Friday. 11. Furosemide 40 mg p.o. b.i.d. 12. Carvedilol 25 mg p.o. b.i.d. 13. Meropenem 500 mg intravenous every 8 hours. 14. Vancomycin 1 g intravenous 3 times a week on Friday, Friday and Friday after hemodialysis. FOLLOWUP INSTRUCTIONS: The patient will be followed by her attending, namely myself, Dr. Inna Meyers, at [facility]. The patient will also be seen by her steam drier operator, namely Dr. Darren De La Fuente. INNA MEYERS MD Job#: [id number] [place] BILLS
[2018-03-23] MEDS ORDERED: VANCOMYCIN 1GM/NS 250 ML 250 ML IV SCH (11:00)
[2018-03-23] MEDS ORDERED: EPOETIN ALFA 10000 UNIT/ML VIAL SC SCH (13:15)
[2018-03-23] MEDS ORDERED: MEROPENEM 500 MG VIAL IV SCH (14:00)
--- NOTE | 2018-03-23 19:49 | Progress Note ---
DATE: March 23, 2018 CARDIOLOGY PROGRESS NOTE SUBJECTIVE: The patient is awake. However, she does not interact. She was seen receiving hemodialysis. OBJECTIVE VITAL SIGNS: Temperature 98.4 degrees, pulse 103, respiratory rate 20, blood pressure 133/64, oxygen saturation 100% on mechanical ventilation via tracheostomy. GENERAL: Awake. In no acute distress. Not interactive. Status post tracheostomy. LUNGS: Clear to auscultation. No wheezes or crackles. CARDIOVASCULAR: Normal rate, regular rhythm. Systolic murmur. Normal S1, S2. ABDOMEN: Soft. EXTREMITIES: No edema. CARDIAC MEDICATIONS 1. Lasix 40 mg p.o. b.i.d. 2. Carvedilol 25 mg p.o. b.i.d. 3. Amlodipine 5 mg p.o. daily. 4. Levothyroxine 50 mcg p.o. daily. LABS: WBC 15.19, hemoglobin 10.4, hematocrit 31.8, platelets 374,000, sodium 137, potassium 4.2, chloride 97, CO2 of 16, BUN 118, creatinine 8.7. TELEMETRY: Normal sinus rhythm. IMPRESSION 1. Status post pulseless electrical activity arrest. 2. Hypoxic brain injury and encephalopathy. 3. Gallstone pancreatitis, status post laparoscopic cholecystectomy. 4. Hemoperitoneum suggested by CT abdomen and pelvis. 5. Acute anemia, status post packed red blood cells with stable hemoglobin and hematocrit. 6. Coronary artery disease, status post 5-vessel coronary artery bypass graft. 7. End-stage renal disease, on hemodialysis. 8. Diabetes mellitus. 9. Hypertension. 10. Dyslipidemia. 11. Mild right ventricular dysfunction. 12. Abnormal troponin likely type 2 myocardial infarction in the setting of cardiac arrest. 13. Abnormal LFTs related to shock liver, improving. 14. Acute respiratory failure, requiring mechanical ventilation, now on trach collar. RECOMMENDATIONS: Continue current cardiac medications. Her prognosis is guarded. Plan for transfer to [place] later today. Volume management per nephrology given end-stage renal disease. Given her RV dysfunction she will not tolerate hypervolemia. Attempt to keep the patient euvolemic. Antibiotics per primary service. Thank you for this consult. We will continue to follow. Job#: [id number]
[2018-03-23] MEDS ORDERED: INSULIN DETEMIR 100 UNIT/ML PEN SQ SCH (21:00)
[2018-03-23] MEDS ORDERED: LEVETIRACETAM ORAL SOLUTION 500 MG/5 ML SOLN NG SCH (21:00)
== END 2018-03-23 17:31 | DRG 4 ==
LOC: FSED 18:38 → MED/SURG3 03-03 00:43 → ICU 03-05 20:00
PROVIDERS: ADMIT Internal Medicine; ATTEND Internal Medicine
PROC: 5A1D70Z Performance of Urinary Filtration, Intermittent, Less than 6 Hours Per Day (ICD-10-PCS; 2018-03-04)
PROC: 5A1955Z Respiratory Ventilation, Greater than 96 Consecutive Hours (ICD-10-PCS; 2018-03-05)
PROC: 0BH17EZ Insertion of Endotracheal Airway into Trachea, Via Natural or Artificial Opening (ICD-10-PCS; 2018-03-05)
PROC: 5A2204Z Restoration of Cardiac Rhythm, Single (ICD-10-PCS; 2018-03-05)
PROC: 5A12012 Performance of Cardiac Output, Single, Manual (ICD-10-PCS; 2018-03-05)
PROC: 3E043XZ Introduction of Vasopressor into Central Vein, Percutaneous Approach (ICD-10-PCS; 2018-03-05)
PROC: 30233N1 Transfusion of Nonautologous Red Blood Cells into Peripheral Vein, Percutaneous Approach (ICD-10-PCS; 2018-03-05)
PROC: 0FT44ZZ Resection of Gallbladder, Percutaneous Endoscopic Approach (ICD-10-PCS; principal; 2018-03-05 10:17)
PROC: 02HV33Z Insertion of Infusion Device into Superior Vena Cava, Percutaneous Approach (ICD-10-PCS; 2018-03-06)
PROC: 30233K1 Transfusion of Nonautologous Frozen Plasma into Peripheral Vein, Percutaneous Approach (ICD-10-PCS; 2018-03-06)
PROC: 3E0436Z Introduction of Nutritional Substance into Central Vein, Percutaneous Approach (ICD-10-PCS; 2018-03-13)
PROC: 02H633Z Insertion of Infusion Device into Right Atrium, Percutaneous Approach (ICD-10-PCS; 2018-03-18)
PROC: 0DH63UZ Insertion of Feeding Device into Stomach, Percutaneous Approach (ICD-10-PCS; 2018-03-20)
PROC: 0B110F4 Bypass Trachea to Cutaneous with Tracheostomy Device, Open Approach (ICD-10-PCS; 2018-03-20 14:30)
DX: A41.9 Sepsis, unspecified organism (principal); K72.00 Acute and subacute hepatic failure without coma; K66.1 Hemoperitoneum; I50.33 Acute on chronic diastolic (congestive) heart failure; J15.6 Pneumonia due to other Gram-negative bacteria; N18.6 End stage renal disease; J96.00 Acute respiratory failure, unspecified whether with hypoxia or hypercapnia; I46.2 Cardiac arrest due to underlying cardiac condition; K85.10 Biliary acute pancreatitis without necrosis or infection; I21.A1 Myocardial infarction type 2; G93.1 Anoxic brain damage, not elsewhere classified; L89.150 Pressure ulcer of sacral region, unstageable; I47.2 Ventricular tachycardia; I12.0 Hypertensive chronic kidney disease with stage 5 chronic kidney disease or end stage renal disease; K80.10 Calculus of gallbladder with chronic cholecystitis without obstruction; E87.2 Acidosis; D62 Acute posthemorrhagic anemia; I13.2 Hypertensive heart and chronic kidney disease with heart failure and with stage 5 chronic kidney disease, or end stage renal disease; Z99.11 Dependence on respirator [ventilator] status; E11.22 Type 2 diabetes mellitus with diabetic chronic kidney disease; Z99.2 Dependence on renal dialysis; I25.10 Atherosclerotic heart disease of native coronary artery without angina pectoris; Z95.1 Presence of aortocoronary bypass graft; E78.5 Hyperlipidemia, unspecified; Z78.1 Physical restraint status; E03.9 Hypothyroidism, unspecified; E87.6 Hypokalemia; D63.1 Anemia in chronic kidney disease; E87.5 Hyperkalemia; K20.9 Esophagitis, unspecified; K29.70 Gastritis, unspecified, without bleeding; G25.3 Myoclonus; Z79.82 Long term (current) use of aspirin; Z79.02 Long term (current) use of antithrombotics/antiplatelets; Z79.84 Long term (current) use of oral hypoglycemic drugs
CPT/HCPCS: 31500; 36415; 36556; 36600; 70450; 70551; 71045; 74018; 74176; 74177; 74470; 76705; 76937; 80048; 80053; 80076; 82150; 82270; 82330; 82550; 82553; 82805; 82948; 83690; 83735; 83880; 84100; 84132; 84134; 84478; 84484; 84630; 85025; 85610; 85730; 86704; 86706; 86850; 86900; 86920; 87040; 87070; 87205; 87340; 88304; 90962; 92950; 93005; 93306; 94002; 94003; 94640; 95812; 96361; 96365; 96366; 96372; 99284; C1751; C1766; J0171; J0690; J0692; J0696; J1100; J1170; J1450; J2001; J2060; J2150; J2185; J2250; J2270; J2370; J2405; J2550; J3370; J3480; J7030; J7050; J7060; J7120; J7799; P9016; P9017; Q4081; Q9967

== ENCOUNTER → 2018-04-17 | Outpatient (CLI) | payer MEDICARE, OTHER ==
[~2018-04-17] MED LIST changes: +ASPIRIN81 MG; +ATORVASTATIN CA20 MG PO; +CLOPIDOGREL75 MG PO; +LATANOPROST2.5 ML OP
--- NOTE | 2018-04-17 16:45 | Diagnostic Imaging Report ---
PROCEDURE:X-RAY LEFT HUMERUS, TWO OR MORE VIEWS COMPARISON:None. INDICATIONS:BROKEN PICC LINE FINDINGS: No radiopaque line or wire is identified. No acute displaced fracture or dislocation in this limited view. Joint spaces are grossly unremarkable. Visualized portions of the left lung are clear. CONCLUSION: No radiopaque line or wire is identified. Willem Benites M.D. Dictated by: Willem Benites M.D. on 04/17/2018 at 16:46 Electronically approved by: Willem Benites M.D. on 04/17/2018 at 16:46
--- NOTE | 2018-04-17 17:01 | Diagnostic Imaging Report ---
PROCEDURE:X-RAY ABDOMEN - KUB COMPARISON:None. INDICATIONS:PICC LINE FINDINGS: No radiopaque wire or line is identified. Nonobstructive gas pattern. Cholecystectomy clips. No acute bony abnormalities. No abnormal calcifications. Gastrostomy tube CONCLUSION: No radiopaque wire or line is identified. Willem Benites M.D. Dictated by: Willem Benites M.D. on 04/17/2018 at 17:03 Electronically approved by: Willem Benites M.D. on 04/17/2018 at 17:03
== END ==
LOC: RAD 16:26
PROVIDERS: ATTEND Internal Medicine
DX: Z45.2 Encounter for adjustment and management of vascular access device (principal)
CPT/HCPCS: 74018